=== PATIENT | female | born 1985 | race Caucasian/White ===

== ENCOUNTER 2017-03-01 10:45 | Inpatient (IN) | payer BC ==
[2017-05-10 13:52] VITALS: BMI 43.6
--- NOTE | 2017-05-16 20:41 | HP ---
HISTORY OF PRESENT ILLNESS: Yanni is a 31 year old, 0, para 0 who presented to the office with history of irregular menses. They are occurring greater than every 34 days and are heavy with clots lasting at least 7 days at a time. She has been interested in and has been to a professor of spanish. She has had identified by ultrasound what is presumably a 5 cm left ovarian dermoid. She has a longstanding history of both PCUS and infertility as noted above. The endocrinologists have opted to not remove it at this time but the patient is requesting removal as she feels it a cause for some longstanding pain that she has on the left side. We discussed options for how to remove it and have opted to proceed with mini laparotomy. PAST MEDICAL HISTORY: Significant for reported angina as well as angina. She also has history of kidney stones and hypertension. She carries a diagnosis of polycystic ovarian syndrome and has a history of an ulcer. SURGICAL HISTORY: She has undergone appendectomy, cholecystectomy, right ovarian cystectomy, and sinus surgery. She denies any anesthetic concerns. OBSTETRICAL HISTORY: 0, para 0. Currently not using contraception as she would welcome a . Again gynecological history is unremarkable with a remote history of STDs but nothing recent. Family history is noncontributory. Social history: The patient is and is a casino floor supervisor. She is a smoker but denies any other alcohol, drugs or any other social concerns. Current medications: 1. Methadone. 2. Naproxen as needed. 3. Neurontin 300 mg daily. 4. Ritalin three times daily. 5. Zantac 300 mg q.h.s. ALLERGIES: CIPRO CAUSED HIVES AND ITCHING DID REPORTEDLY MORPHINE AND PENICILLIN WELL POSSIBLY TORADOL. Review of systems is confined to history of present illness. PHYSICAL EXAMINATION: Vital signs are stable and the patient is afebrile. In general, this is a moderately obese white female in no acute distress. HEENT: demonstrates PERRLA, EOMI, her oropharynx is clear. Neck is supple. Without adenopathy. Thyroid is normal to palpation. Her heart has regular rhythm and rate without murmur. Her lungs are clear to auscultation bilaterally in all lou. Her abdomen is moderately obese, nondistended and has normal active bowel sounds, is soft, nontender, without any palpable masses. Hepatosplenomegaly without any hernias. Her extremities without cyanosis, clubbing or edema and are nontender to palpation bilaterally. Bimanual pelvic examination demonstrates a roughly four week retroverted mobile nontender normal shaped uterus with normal adnexa bilaterally although there is suggestion of left adnexal fullness. She did have mild tenderness, more on the left than the right. ASSESSMENT AND PLAN: 5 cm presumptive left ovarian dermoid, left pelvic pain: We discussed options in terms of treating it hormonally versus surgical. The patient has requested definitive therapy with removal. We will plan to proceed with exploratory laparotomy, left ovarian cystectomy, possible oophorectomy, and any indicated surgery. We discussed the typical hospital and postop courses as well as the risks and complications of the procedure at length to include bleeding, bleeding requiring transfusion, infection, and injury to local structures to specifically include the bowel, bladder and ureters. She has understood all of these risks and agrees to proceed. We are scheduled for the morning of May 17, 2017 for the procedures as outlined above. FAM
[2017-05-17] MEDS ORDERED: Pre Op ABX Message 1 EACH MISC MISCELLANE ONE (05:00)
[2017-05-17] MEDS ORDERED: ONDANSETRON 4 MG/2 ML VIAL IVP ONE (05:41)
[2017-05-17] MEDS ORDERED: DEXAMETHASONE SOD PHOSPHATE 10 MG/ML 1 ML VIAL IV ONE (05:41)
[2017-05-17 06:50] LABS: Glucose,Whole Blood 100 mg/dL (75-99)
[2017-05-17] MEDS: LACTATED RINGERS 1,000 ML IV SCH ×5 (06:51→15:52)
[2017-05-17] MEDS ORDERED: MIDAZOLAM 2 MG/2 ML VIAL IVP ONE (07:00)
[2017-05-17] MEDS ORDERED: DEXAMETHASONE SOD PHOS (MDV) 100 MG/10 ML VIAL ONE (07:35)
[2017-05-17] MEDS ORDERED: SUCCINYLCHOLINE CHLORIDE 100 MG/5 ML SYR IV ONE (07:35)
[2017-05-17] MEDS ORDERED: PROPOFOL 10 MG/ML 20 ML VIAL IV ONE (07:35)
[2017-05-17] MEDS ORDERED: fentaNYL (PF) 50 MCG/ML 2 ML AMP ONE (07:35)
[2017-05-17] MEDS ORDERED: ALBUTEROL INHALER 60 PUFF/8 GM INHALER INHALATION ONE (07:35)
[2017-05-17] MEDS ORDERED: MIDAZOLAM 2 MG/2 ML VIAL ONE (07:35)
[2017-05-17] MEDS ORDERED: GLYCOPYRROLATE 0.2 MG/ML 2 ML VIAL ONE (07:35)
[2017-05-17] MEDS ORDERED: diphenhydrAMINE 50 MG/ML 1 ML VIAL ONE (07:35)
[2017-05-17] MEDS ORDERED: HYDROmorphone (PF) 1 MG/ML ONE (07:35)
[2017-05-17] MEDS ORDERED: ROCURONIUM BROMIDE 10 MG/ML 10 ML VIAL IV ONE (07:35)
[2017-05-17] MEDS ORDERED: NEOSTIGMINE 1 MG/ML 10 ML VIAL ONE (07:35)
[2017-05-17] MEDS ORDERED: LIDOCAINE 1% INJ 10MG/ML (20 ML MDV) ONE (07:35)
[2017-05-17] MEDS ORDERED: diphenhydrAMINE 50 MG/ML 1 ML VIAL IVP PRN (07:42)
[2017-05-17] MEDS ORDERED: ONDANSETRON 4 MG/2 ML VIAL IVP PRN (07:42)
[2017-05-17] MEDS ORDERED: METOCLOPRAMIDE 5 MG/ML 2 ML VIAL IVP PRN (07:42)
[2017-05-17] MEDS ORDERED: IBUPROFEN 600 MG TAB PO PRN (07:42)
[2017-05-17] MEDS ORDERED: Acetaminophen-Codeine 300-30mg TAB PO PRN ×2 (07:42)
[2017-05-17] MEDS ORDERED: SODIUM CHLORIDE 0.9% 100 ML with CLINDAMYCIN 900 MG IV ONE ×2 (07:57)
[2017-05-17] MEDS ORDERED: CELLULOSE,OXIDIZED 1 EACH EACH MISCELLANE ONE (08:16)
[2017-05-17] MEDS ORDERED: NALOXONE 0.4 MG/ML 1 ML VIAL IV PRN (08:37)
[2017-05-17] MEDS ORDERED: LACTATED RINGERS 1,000 ML IV ONE (08:42)
--- NOTE | 2017-05-17 08:45 | P.OP ---
Date of Procedure: 05/17/17 Preoperative Diagnosis: #1. Left pelvic pain #2. 5 cm presumptive left ovarian dermoid cyst Postoperative Diagnosis: Same Procedure(s) Performed: #1. Exploratory laparotomy #2. Left ovarian cystectomy with ovarian reconstruction Implants: Surgeon: Moody Multani Coffee Attendant #1: Carolina Hernandez Estimated Blood Loss (ml): 100 IV fluids (ml): 700 Urine output (ml): 60 Pathology: other (Left ovarian cyst) Condition: stable Disposition: PACU Indications for Procedure: Operative Findings: Preoperative pelvic examination demonstrated a normal of 4 week anteverted uterus with the suggestion of left adnexal dilation. Examination is still limited secondary to the patient's habitus. Intraoperatively, the uterus was entirely normal as were the bilateral tubes. The right ovary was somewhat enlarged consistent with polycystic ovarian syndrome. The left ovary was significantly enlarged with an apparent cyst within which was removed intact and unruptured. The ovary was reconstructed part replaced within the pelvis. Description of Procedure: The patient was prepped and draped in usual fashion after general endotracheal anesthesia was administered by the anesthesiologist. Some a small Pfannenstiel incision was made and extended into the abdominal cavity with minimal difficulty. The pelvis was explored manually with the findings as noted above. The left ovary was able to be elevated into the incisional area from where an incision was made across the capsule of the ovary to enter it without entering the cyst. The capsule was then dissected bluntly off of the underlying cyst until the cyst was free. The cyst was then passed for pathological diagnoses. The ovary was reconstructed starting deep and the internal portion with running locking stitches of 2-0 Vicryl to control bleeding. Once the internal portion of the ovary had been thoroughly reconstructed and hemostasis was excellent using both the stitches and Bovie, the capsule was reapproximated with the edges being tucked in with an overlapping imbricating type of stitch to close the capsule. Any edges of capsule that were still visible were then cauterized. Hemostasis appeared to be excellent. Thorough irrigation was carried out to remove any free blood from the pelvis area The ovary was then wrapped with Interceed and replaced within the pelvis in its normal anatomic position. The remainder of the pelvis was reexplored and the findings continued to be normal. All instrumentation was then removed from the abdomen. The fascia was closed after ensuring that hemostasis was adequate on the layer of muscles. Fascia was closed with a running stitch of 0 Vicryl from margin to margin. The subcutaneous tissues were irrigated, made hemostatic with the Bovie, and reapproximated with a running stitch of 30 plain catgut. The skin was reapproximated with a running subcuticular stitch of 4-0 Vicryl followed by half-inch Steri-Strips placed with Mastisol. Estimated blood loss for the case was approximately 100 mL or less. There were no complications. All sponge, instrument, and needle counts were correct. The patient tolerated the procedure well and is to proceed to the recovery room in stable condition shortly.
[2017-05-17] MEDS: HYDROmorphone 1 MG/ML 1 ML SYRINGE IVP PRN ×2 (10:07→10:15)
[2017-05-17] MEDS: SENNOSIDES-DOCUSATE SODIUM 1 EACH TAB PO SCH ×2 (10:19→21:17)
[2017-05-17] MEDS: HYDROmorphone PCA 5 MG/25 ML SYRINGE IV PRN ×3 (11:15→22:31)
[2017-05-17] MEDS: SIMETHICONE 80 MG CHEWABLE PO PRN (22:19)
[2017-05-18] MEDS: LACTATED RINGERS 1,000 ML IV SCH ×2 (03:12→06:22)
[2017-05-18] MEDS: HYDROmorphone PCA 5 MG/25 ML SYRINGE IV PRN (03:27)
[2017-05-18 06:22] LABS: Basophils % (A) 0 %; CH 28.4; CHCM 34.2; Eosinophils % (A) 0 %; HCT 36.6 % (34.0-46.0); HDW 2.89; HGB 12.4 gm/dL (11.4-16.0); Luc # (Auto) 0.15; Luc % (Auto) 1; Lymphocytes # (A) 1.6 k/uL (1.0-4.8); Lymphocytes % (A) 12 %; MCH 28.2 pg (25.0-35.0); MCHC 33.9 g/dL (31.0-37.0); MCV 83.4 fL (80.0-100.0); Mean Platelet Volume 7.7; Monocytes # (A) 0.7 k/uL (0-1.0); Monocytes % (A) 5 %; Neutrophils # (A) 10.9 k/uL (1.3-7.7); Neutrophils % (A) 82 %; RBC 4.39 m/uL (3.80-5.40); RDW 13.8 % (11.5-15.5); WBC 13.4 k/uL (3.8-10.6); WBC (Perox) 13.08
[2017-05-18] MEDS: SENNOSIDES-DOCUSATE SODIUM 1 EACH TAB PO SCH (08:43)
[2017-05-18] MEDS: SIMETHICONE 80 MG CHEWABLE PO PRN ×2 (08:43→13:10)
[2017-05-18] MEDS ORDERED: HYDROcodone/APAP 5-325MG 1 EACH TAB PO PRN ×2 (08:56)
--- NOTE | 2017-05-18 09:03 | P.DS ---
Providers Date of admission: 05/17/17 06:01 Expected date of discharge: 05/18/17 Attending physician: Moody Multani Primary care physician: Rochelle Carlos - Discharge Diagnosis(es) (1) Ovarian cyst Current Visit: Yes Status: Acute Hospital Course: The patient is a 31-year-old 0 para 0 who carries a long-standing history of PCO OS with irregular menses. She was also diagnosed with a roughly 5 cm left ovarian dermoid. She has been attempting without success and was seen by reproductive endocrinology who opted not to have it removed. As the patient also complains of fairly significant left pelvic pain she has requested to have the dermoid cyst removed. In order to effect its removal more easily, the decision was made to proceed with minilaparotomy and excision with ovarian reconstruction. She was taken the operating room where she underwent this procedure in an uncomplicated fashion. Her postoperative course was unremarkable vital signs remaining stable and her temperature was afebrile throughout. She did have fairly significant bronchospasm at the time of induction of anesthesia which resolved following the surgery. She was tolerating regular diet by the morning of postoperative day #1 and was deemed stable for discharge as her vital signs remained stable and she was afebrile throughout on postoperative day #1. She was discharged home to follow-up in the office in 2 weeks for an incision check and 6 weeks routinely. Discharge instructions included calling for any significantly increased fever, pain, incisional complaints, GI concerns, or anything else that concerned her. She is additionally instructed to do no heavy lifting over the next the 4-6 weeks. She understood her instructions and agrees to follow up as noted above. Discharge medications included continued home medications as well as a prescription for Pe Ell 5/325 mg, 1-2 by mouth every 6 hours when necessary pain , #30 dispensed with no refills. Discharge hemoglobin and hematocrit were 12.4 and 36.6 respectively. Procedures: #1. Exploratory laparotomy #2. Left ovarian cystectomy with ovarian reconstruction Patient Condition at Discharge: Stable Plan - Discharge Summary New Discharge Prescriptions: New HYDROcodone/APAP 5-325MG [Pe Ell 5-325] 1 - 2 tab PO Q6HR PRN #30 tab PRN Reason: Pain No Action Gabapentin [Gabapentin] 600 mg PO QID Ranitidine HCl [Zantac] 75 mg PO HS PRN PRN Reason: reflux tiZANidine [Zanaflex] 4 mg PO BID PRN PRN Reason: Muscle Spasm Methadone [Dolophine] 10 mg PO TID SUMAtriptan SUCCINATE [Sumatriptan Succinate] 100 mg PO DAILY PRN PRN Reason: migraines LORazepam [Ativan] 1 mg PO DAILY PRN PRN Reason: Anxiety Discharge Medication List Gabapentin [Gabapentin] 600 mg PO QID 05/17/17 [History] LORazepam [Ativan] 1 mg PO DAILY PRN 05/17/17 [History] Methadone [Dolophine] 10 mg PO TID 05/17/17 [History] Ranitidine HCl [Zantac] 75 mg PO HS PRN 05/17/17 [History] SUMAtriptan SUCCINATE [Sumatriptan Succinate] 100 mg PO DAILY PRN 05/17/17 [ History] tiZANidine [Zanaflex] 4 mg PO BID PRN 05/17/17 [History] HYDROcodone/APAP 5-325MG [Pe Ell 5-325] 1 - 2 tab PO Q6HR PRN #30 tab 05/18/17 [ Rx] Follow up Appointment(s)/Referral(s): Moody Multani MD [STAFF PHYSICIAN] - 2 Weeks Discharge Disposition: HOME SELF-CARE
[2017-05-18 09:04] VITALS: RESP 16
[2017-05-18 12:45] VITALS: BP 123/64; PULSE 60; TEMP 97.8
== END 2017-05-18 13:29 | disposition home or self-care (01) | DRG 743 ==
LOC: 2ORWHC 05-17 06:01 → 6PED 05-17 09:14
PROVIDERS: ADMIT Obstetrics & Gynecology; ATTEND Obstetrics & Gynecology
PROC: 0UQ10ZZ Repair Left Ovary, Open Approach (ICD-10-PCS; 2017-05-17)
PROC: 0UB10ZZ Excision of Left Ovary, Open Approach (ICD-10-PCS; principal; 2017-05-17 07:30)
DX: D27.1 Benign neoplasm of left ovary (principal); E66.9 Obesity, unspecified; I10 Essential (primary) hypertension; R10.2 Pelvic and perineal pain; N92.6 Irregular menstruation, unspecified; E28.2 Polycystic ovarian syndrome; N85.4 Malposition of uterus; J98.01 Acute bronchospasm; F17.200 Nicotine dependence, unspecified, uncomplicated; Z87.442 Personal history of urinary calculi; Z79.1 Long term (current) use of non-steroidal anti-inflammatories (NSAID); Z79.899 Other long term (current) drug therapy; Z79.891 Long term (current) use of opiate analgesic; Z88.6 Allergy status to analgesic agent; Z88.1 Allergy status to other antibiotic agents; Z88.5 Allergy status to narcotic agent; Z88.0 Allergy status to penicillin; Z86.19 Personal history of other infectious and parasitic diseases; Z87.42 Personal history of other diseases of the female genital tract; Z86.79 Personal history of other diseases of the circulatory system; Z87.11 Personal history of peptic ulcer disease; Z90.49 Acquired absence of other specified parts of digestive tract
CPT/HCPCS: 81025; 85025; 86850; 86900; 86901; 88305

== ENCOUNTER → 2017-05-09 | Outpatient (CLI) | payer BC ==
[2017-05-09 11:51] LABS: Anion Gap 9 mmol/L; Blood Urea Nitrogen 11 mg/dL (7-17); Carbon Dioxide 27 mmol/L (22-30); Chloride 104 mmol/L (98-107); Glucose 95 mg/dL (74-99); Non-African American GFR(MDRD) >60 (>60 ml/min/1.73 sqM); Potassium 4.1 mmol/L (3.5-5.1); Sodium 140 mmol/L (137-145)
[2017-05-09 12:34] LABS: Basophils # (A) 0.1 k/uL (0-0.2); Basophils % (A) 1 %; CH 28.7; CHCM 34.9; Eosinophils # (A) 0.4 k/uL (0-0.7); Eosinophils % (A) 5 %; HCT 44.7 % (34.0-46.0); HDW 2.94; HGB 15.1 gm/dL (11.4-16.0); Luc # (Auto) 0.16; Luc % (Auto) 2; Lymphocytes % (A) 33 %; MCH 27.9 pg (25.0-35.0); MCHC 33.7 g/dL (31.0-37.0); MCV 82.8 fL (80.0-100.0); Mean Platelet Volume 7.6; Monocytes # (A) 0.4 k/uL (0-1.0); Monocytes % (A) 5 %; Neutrophils # (A) 4.8 k/uL (1.3-7.7); Neutrophils % (A) 55 %; RDW 13.7 % (11.5-15.5); WBC 8.9 k/uL (3.8-10.6); WBC (Perox) 8.31
== END | disposition home or self-care (01) ==
LOC: LABPAT 10:27
PROVIDERS: ATTEND Obstetrics & Gynecology
DX: Z01.812 Encounter for preprocedural laboratory examination (principal); G89.29 Other chronic pain; R10.2 Pelvic and perineal pain
CPT/HCPCS: 80051; 82565; 82947; 84520; 85025; 86850; 86900; 86901; 87086

== ENCOUNTER → 2017-12-08 | Outpatient (CLI) | payer BC ==
--- NOTE | 2017-12-08 16:07 | XR ---
EXAMINATION TYPE: XR foot complete RT DATE OF EXAM: 12/08/2017 COMPARISON: NONE HISTORY: Plantar fascial fibromatosis TECHNIQUE: Three-view right foot FINDINGS: No acute fractures or dislocations are evident. Some soft tissue prominence may be over the lateral foot. Plantar soft tissues are unremarkable. IMPRESSION: 1. Suggestion of mild bilateral foot soft tissue swelling.
== END | disposition home or self-care (01) ==
LOC: RADXRYALE 15:42
PROVIDERS: ATTEND Physician Assistant Medical
DX: M72.2 Plantar fascial fibromatosis (principal)

== ENCOUNTER → 2018-09-26 | Outpatient (CLI) | payer OTHER ==
--- NOTE | 2018-09-26 10:04 | CT ---
EXAMINATION TYPE: CT abdomen pelvis wo con DATE OF EXAM: 09/26/2018 COMPARISON: 08/04/2014 HISTORY: Bilateral flank pain with hematuria and frequent infections CT DLP: 1868.3 mGycm Examination of the solid and hollow viscera is limited given the lack of contrast. FINDINGS: LUNG BASES: No evidence for nodule. No evidence for infiltrate. LIVER/GB: Cholecystectomy clips are in place. No space-occupying hepatic lesion. PANCREAS: No pancreatic mass identified. No inflammatory process seen. SPLEEN: No evidence for splenomegaly. No intrasplenic lesions seen. ADRENALS: No adrenal nodules identified. No evidence for thickening. KIDNEYS: 6.5 mm calculus noted within the proximal left ureter just distal to the left UPJ. There the re is moderate to severe left-sided hydronephrosis. Mild left renal edema. Upper pole left renal cyst measures 4.3 cm. No additional calculi appreciated. BOWEL: Appendix has a normal appearance. No evidence of bowel obstruction. No inflammatory process. M oderate fecal stasis. Lymph nodes: No evidence for adenopathy greater than 1 cm. Abdominal aorta: Atheromatous changes seen. No evidence for aneurysm. Genital organs: No significant abnormality. Other: No significant abnormality. IMPRESSION: 1. 6.5 mm calculus noted within the proximal left ureter just distal to the left UPJ. There there is moderate to severe left-sided hydronephrosis. Mild left renal edema.
== END | disposition home or self-care (01) ==
LOC: RADCTMAIN 08:41
PROVIDERS: ATTEND Family Medicine
DX: N13.2 Hydronephrosis with renal and ureteral calculous obstruction (principal)
CPT/HCPCS: 74176

== ENCOUNTER → 2018-10-13 | Outpatient (CLI) | payer OTHER ==
[2018-10-13 11:37] LABS: Basophils % (A) 0 %; Eosinophils # (A) 0.3 k/uL (0-0.7); Eosinophils % (A) 4 %; HCT 40.7 % (34.0-46.0); HGB 13.4 gm/dL (11.4-16.0); Lymphocytes % (A) 24 %; MCH 26.8 pg (25.0-35.0); MCV 81.3 fL (80.0-100.0); Monocytes # (A) 0.5 k/uL (0-1.0); Monocytes % (A) 6 %; Neutrophils # (A) 5.2 k/uL (1.3-7.7); Neutrophils % (A) 64 %; Platelet Count 229 k/uL (150-450); RBC 5.01 m/uL (3.80-5.40); RDW 14.1 % (11.5-15.5); WBC 8.2 k/uL (3.8-10.6)
[2018-10-13 11:39] LABS: Blood Urea Nitrogen 14 mg/dL (7-17)
== END | disposition home or self-care (01) ==
LOC: LABPAT 10:45
PROVIDERS: ATTEND Urology
DX: Z01.812 Encounter for preprocedural laboratory examination (principal); N20.1 Calculus of ureter
CPT/HCPCS: 36415; 82565; 84520; 85025

== ENCOUNTER 2018-10-16 10:11 | Day surgery (SDC) | payer OTHER ==
[2018-10-13 13:32] VITALS: BMI 41.1
--- NOTE | 2018-10-15 12:26 | P.GSHP ---
History of Present Illness H&P Date: 10/15/18 33 yo female with a painful 6 mm mid left uretersl dtoe who comes for eswl. She has had 3 in the past The stone is seen just above the iliac crest left on kub and ct scn. - Constitutional Constitutional: Denies chills, Denies fever - EENT Eyes: denies blurred vision, denies pain Ears, nose, mouth and throat: Denies headache, Denies sore throat - Cardiovascular Cardiovascular: Denies chest pain, Denies shortness of breath - Respiratory Respiratory: Denies cough, Denies 7 - Gastrointestinal Gastrointestinal: Denies abdominal pain, Denies diarrhea, Denies nausea, Denies vomiting - Genitourinary (Female) Genitourinary: Reports as per HPI, Denies dysuria, Denies hematuria - Genitourinary (Male) Genitourinary: Denies dysuria, Denies hematuria - Musculoskeletal Musculoskeletal: Denies myalgias - Integumentary Integumentary: Denies pruritus, Denies rash - Neurological Neurological: Denies numbness, Denies weakness - Psychiatric Psychiatric: Denies anxiety, Denies depression - Endocrine Endocrine: Denies fatigue, Denies weight change Past Medical History Past Medical History: Asthma, Fibromyalgia, GERD/Reflux, Osteoarthritis (OA), Sleep Apnea/CPAP/BIPAP Additional Past Medical History / Comment(s): Migraines, kidney stones, back and neck pain, polycystic ovary, varicose veins, hypersomnia, no cpap used, hx ulcer, gout, History of Any Multi-Drug Resistant Organisms: None Reported Past Surgical History: Appendectomy, Cholecystectomy Additional Past Surgical History / Comment(s): cyst removed left ovarian with reconstruction, sinus surgery, rt ovarian cyst removed, oral surgery Past Anesthesia/Blood Transfusion Reactions: Previous Problems w/ Anesthesia Additional Past Anesthesia/Blood Transfusion Reaction / Comment(s): brochial spasm with surgery at [facility] 04/2018 -removal of ovarian cyst Smoking Status: Current every day smoker - Past Family History Mother Family Medical History: No Reported History Medications and Allergies Home Medications Medication Instructions Recorded Confirmed Type Methadone [Dolophine] 10 mg PO TID 05/17/17 10/13/18 History Albuterol Inhaler [Ventolin Hfa 1 - 2 puff INHALATION DIRECTED 10/13/1810/13 History Inhaler] PRN Amitriptyline HCl [Elavil] 25 mg PO HS 10/13/18 10/13/18 History Baclofen [Lioresal] 10 mg PO BID PRN 10/13/18 10/13/18 History Gabapentin 800 mg PO QID PRN 10/13/18 10/13/18 History Ranitidine HCl [Zantac] 150 mg PO BID PRN 10/13/18 10/13/18 History SUMAtriptan SUCCINATE [Imitrex] 100 mg PO DIRECTED PRN 10/13/18 10/13/18 History Sertraline [Zoloft] 100 mg PO DAILY 10/13/18 10/13/18 History Allergies Allergy/AdvReac Type Severity Reaction Status Date / Time ciprofloxacin [From Cipro] Allergy Rash/Hives Verified 10/13/18 13:17 ciprofloxacin HCl Allergy Rash/Hives Verified 10/13/18 13:17 [From Cipro] ibuprofen [From Motrin] Allergy Rash/Hives Verified 10/13/18 13:17 ketorolac tromethamine Allergy Rash/Hives Verified 10/13/18 13:17 [From Toradol] morphine Allergy Rash/Hives Verified 10/13/18 13:17 Penicillins Allergy Rash/Hives Verified 10/13/18 13:17 Surgical - Exam - General well developed, well nourished, no distress - Eyes PERRL - ENT no hearing loss - Neck trachea midline - Respiratory normal expansion, normal respiratory effort - Cardiovascular Rhythm: regular - Abdomen Abdomen: soft, tender - Integumentary no rash, no growths - Neurologic normal coordination, normal sensation - Musculoskeletal normal gait, normal posture - Psychiatric oriented to time, oriented to person, oriented to place, speech is normal, memory intact Results - Imaging CT scan - abdomen: report reviewed, image reviewed CT scan - pelvis: report reviewed, image reviewed Assessment and Plan Assessment: Impression: Left ureteral stone,6mm mid left ureter Plan: ESWL left
--- NOTE | 2018-10-16 09:30 | XR ---
EXAMINATION TYPE: XR KUB DATE OF EXAM: 10/16/2018 9:23 AM CLINICAL HISTORY: Left kidney stone, presurgical study. TECHNIQUE: Two Upright KUB images of the abdomen are obtained. COMPARISON: CT abdomen and pelvis September 26, 2018 FINDINGS: The left ureter calculus measuring 6 to 7 mm has progressed distally from level of L5 verte bra to now overlying the upper sacrum. There is additional 4 mm round density lower left sacroiliac j oint suspicious for phlebolith though I do not see corresponding large phlebolith on recent CT. Surgi shady clips are scattered throughout the pelvis. Cholecystectomy clips are noted. No right-sided nephro lithiasis is identified. Overall nonobstructive bowel gas pattern. Lung bases are clear. Slight levoconvex scoliotic curvature is seen. IMPRESSION: Slight distal progression of obstructing 6 to 7 mm left ureter calculus.
[~2018-10-16 10:11] MED LIST: LACTATED RINGERS 1,000 ML IV SCH; Pre Op ABX Message 1 EACH MISC MISCELLANE ONE
[2018-10-16 10:30] VITALS: RESP 16
[2018-10-16] MEDS ORDERED: PROPOFOL 10 MG/ML 20 ML VIAL IV ONE (10:30)
[2018-10-16] MEDS ORDERED: MIDAZOLAM 2 MG/2 ML VIAL ONE (10:30)
[2018-10-16] MEDS ORDERED: LIDOCAINE 1% 20 ML VIAL (10MG/ML) FOR IV START INTRADERMA ONE (10:30)
[2018-10-16] MEDS ORDERED: KETAMINE 10 MG/ML 20 ML VIAL ONE (10:30)
[2018-10-16] MEDS ORDERED: fentaNYL (PF) 50 MCG/ML 2 ML AMP ONE (10:30)
[2018-10-16] MEDS ORDERED: LACTATED RINGERS 1,000 ML IV ONE ×2 (10:30)
[2018-10-16 12:18] VITALS: TEMP 97.3
[2018-10-16 14:43] VITALS: BP 110/62; PULSE 71
== END 2018-10-16 14:45 | disposition home or self-care (01) ==
LOC: ORWHC2ENDO 10:11
PROVIDERS: ATTEND Urology
DX: N20.1 Calculus of ureter (principal); J45.909 Unspecified asthma, uncomplicated; K21.9 Gastro-esophageal reflux disease without esophagitis; M19.90 Unspecified osteoarthritis, unspecified site; G47.33 Obstructive sleep apnea (adult) (pediatric); M79.7 Fibromyalgia; Z88.6 Allergy status to analgesic agent; Z88.1 Allergy status to other antibiotic agents; Z88.5 Allergy status to narcotic agent; Z88.0 Allergy status to penicillin; Z88.8 Allergy status to other drugs, medicaments and biological substances; Z79.899 Other long term (current) drug therapy; Z90.49 Acquired absence of other specified parts of digestive tract
CPT/HCPCS: 81025; 74018; 50590; J2250; J3010; J2704

== ENCOUNTER → 2018-10-20 | Outpatient (CLI) | payer OTHER ==
--- NOTE | 2018-10-20 14:06 | XR ---
EXAMINATION TYPE: XR KUB DATE OF EXAM: 10/20/2018 12:36 PM CLINICAL HISTORY: Status post lithotripsy on the left. TECHNIQUE: Single supine KUB image of the abdomen is obtained. COMPARISON: 10/16/2018. FINDINGS: There is a rounded calculus near the left transverse process of L5, similar in position to the prior radiograph of 10/16/2018 likely representing a residual ureteral calculus. The previously s een second rounded density on the prior exam is no longer visualized. Surgical clips are seen in the right lower quadrant and pelvis. Moderate amount of overlying stool pa rtially obscures the renal shadows. Osseous structures are grossly intact with mild femoral acetabula r arthropathy. Previously seen levoconvex curvature of the lumbar spine is no longer present and was likely positional. IMPRESSION: An approximately 6 mm left probable ureteral stone remains at the level of the left L5 tr ansverse process. The second identified calculus versus phlebolith on the prior exam no longer visual ized.
== END | disposition home or self-care (01) ==
LOC: RADXRMAIN 12:22
PROVIDERS: ATTEND Urology
DX: N20.1 Calculus of ureter (principal)
CPT/HCPCS: 74018

== ENCOUNTER → 2018-11-27 | Outpatient (CLI) | payer OTHER ==
[2018-11-27 08:41] LABS: Basophils % (A) 0 %; Eosinophils # (A) 0.3 k/uL (0-0.7); Eosinophils % (A) 2 %; HCT 44.4 % (34.0-46.0); HGB 14.7 gm/dL (11.4-16.0); Lymphocytes # (A) 2.8 k/uL (1.0-4.8); Lymphocytes % (A) 27 %; MCH 26.9 pg (25.0-35.0); MCHC 33.1 g/dL (31.0-37.0); MCV 81.2 fL (80.0-100.0); Mean Platelet Volume 7.2; Monocytes # (A) 0.6 k/uL (0-1.0); Monocytes % (A) 6 %; Neutrophils # (A) 6.6 k/uL (1.3-7.7); Neutrophils % (A) 63 %; Platelet Count 327 k/uL (150-450); RBC 5.47 m/uL (3.80-5.40); RDW 14.8 % (11.5-15.5); WBC 10.5 k/uL (3.8-10.6)
== END | disposition home or self-care (01) ==
LOC: LABPAT 07:12
PROVIDERS: ATTEND Urology
DX: Z01.812 Encounter for preprocedural laboratory examination (principal); N20.1 Calculus of ureter
CPT/HCPCS: 36415; 85025

== ENCOUNTER → 2018-12-12 | Outpatient (CLI) | payer OTHER ==
[~2018-12-12] MED LIST changes: -LACTATED RINGERS 1,000 ML IV SCH; -Pre Op ABX Message 1 EACH MISC MISCELLANE ONE; +ceFAZolin 1,000 MG in DEXTROSE/WATER 1 50ML.BAG IVPB ONE
--- NOTE | 2018-12-12 12:23 | XR ---
EXAMINATION TYPE: XR KUB DATE OF EXAM: 12/12/2018 11:13 AM CLINICAL HISTORY: Left-sided calculus, recent lithotripsy. TECHNIQUE: Two supine KUB images of the abdomen are obtained. COMPARISON: CT abdomen and pelvis September 26, 2018. Abdominal x-ray October 20, 2018 FINDINGS: There is stable 7 mm calculus at left L4-L5 disc space level not significantly changed in s ize or appearance from prior studies. No additional renal calculi are present. Surgical clips over the right upper pelvis remain present. Overall nonobstructive bowel gas pattern i s seen. Visualized osseous structures are intact. Cholecystectomy clips are redemonstrated. IMPRESSION: Stable 6-7 mm left mid ureter calculus.
== END | disposition home or self-care (01) ==
LOC: RADXRMAIN 10:54
PROVIDERS: ATTEND Urology
DX: N20.1 Calculus of ureter (principal)
CPT/HCPCS: 74018

== ENCOUNTER 2018-12-13 05:54 | Day surgery (SDC) | payer OTHER ==
[2018-12-11 15:30] VITALS: BMI 42.0
--- NOTE | 2018-12-12 15:08 | P.GSHP ---
History of Present Illness H&P Date: 12/12/18 Chief Complaint: Left ureteral calculus Patient is a 33-year-old female with a history of urolithiasis who developed left flank pain in the fall of 2017. CT scan of the abdomen and pelvis without IV contrast on 09/26/2018 identified a 6 mm partially obstructing calculus in the proximal left ureter. The calculus was visible on a KUB. The patient was evaluated by in 09/2018 and after reviewing treatment options underwent ESWL treatment of the calculus on 10/16/[address] Jones. The patient never passed any calculus fragments in a KUB on 10/20 continued to show a 5-6 mm calculus in the mid left ureter. She continues to have intermittent left flank pain. A KUB on 12/09/2018 continues to show a 5 mm calculus at the L4-5 level. In view of failure of the ESWL treatment has been elected to treat the calculus with ureteroscopy with lithotripsy. - Constitutional Constitutional: Reports chronic pain, Denies fever - Cardiovascular Cardiovascular: Denies chest pain, Denies shortness of breath - Respiratory Respiratory: Denies cough - Gastrointestinal Gastrointestinal: Reports abdominal pain (Left flank) - Genitourinary (Female) Genitourinary: Denies dysuria, Denies hematuria Past Medical History Past Medical History: Asthma, Fibromyalgia, GERD/Reflux, Osteoarthritis (OA), Skin Disorder, Sleep Apnea/CPAP/BIPAP Additional Past Medical History / Comment(s): Migraines, kidney stones, back and neck pain, [facility] CTS, polycystic ovary, varicose veins, hypersomnia, no cpap used, hx ulcer, gout. LT KNEE PROB R/T OLD INJ. DERMATITIS HANDS. History of Any Multi-Drug Resistant Organisms: None Reported Past Surgical History: Appendectomy, Cholecystectomy Additional Past Surgical History / Comment(s): Cyst removed left ovarian with reconstruction, Sinus surgery, Rt ovarian cyst removed, oral surgery. ESWL - unsuccessful treatment left ureteral calculus 10/16/2018. Past Anesthesia/Blood Transfusion Reactions: Previous Problems w/ Anesthesia Additional Past Anesthesia/Blood Transfusion Reaction / Comment(s): brochial spasm with surgery at [facility] 04/2018 -removal of ovarian cyst Smoking Status: Current every day smoker - Past Family History Mother Family Medical History: Cancer Medications and Allergies Home Medications Medication Instructions Recorded Confirmed Type Albuterol Inhaler [Ventolin Hfa 1 - 2 puff INHALATION DIRECTED 10/13/1812/11 History Inhaler] PRN Amitriptyline HCl [Elavil] 25 mg PO HS 10/13/18 12/11/18 History Baclofen [Lioresal] 10 mg PO BID PRN 10/13/18 12/11/18 History Gabapentin 800 mg PO QID PRN 10/13/18 12/11/18 History Ranitidine HCl [Zantac] 150 mg PO BID PRN 10/13/18 12/11/18 History SUMAtriptan SUCCINATE [Imitrex] 100 mg PO DIRECTED PRN 10/13/18 12/11/18 History Sertraline [Zoloft] 100 mg PO DAILY 10/13/18 12/11/18 History Naproxen Sodium [Aleve] 220 - 440 mg PO BID PRN 12/11/18 12/11/18 History Tamsulosin HCl [Flomax] 0.4 mg PO HS PRN 12/11/18 12/11/18 History traMADol HCL [Ultram] 50 - 100 mg PO Q6HR PRN 12/11/18 12/11/18 History Allergies Allergy/AdvReac Type Severity Reaction Status Date / Time ciprofloxacin [From Cipro] Allergy Rash/Hives Verified 12/11/18 15:04 ciprofloxacin HCl Allergy Rash/Hives Verified 12/11/18 15:04 [From Cipro] ibuprofen [From Motrin] Allergy Rash/Hives Verified 12/11/18 15:04 ketorolac tromethamine Allergy Rash/Hives Verified 12/11/18 15:04 [From Toradol] morphine Allergy Rash/Hives Verified 12/11/18 15:04 Penicillins Allergy Rash/Hives Verified 12/11/18 15:04 Surgical - Exam - General well developed, well nourished, no distress, obese - ENT no hearing loss - Neck no masses, no lymphadectomy - Respiratory normal respiratory effort - Abdomen Abdomen: soft, non tender, no organomegaly Assessment and Plan (1) Left ureteral calculus Narrative/Plan: The patient will undergo cystoscopy with left ureteroscopy and lithotripsy performed under general anesthesia. She is aware of the operative risks which include anesthesia, hematuria, flank pain, ureteral injury, inability to remove the calculus and the possible need for double-J catheter postoperatively. Status: Acute Code(s): N20.1 - CALCULUS OF URETER SNOMED Code(s): 47228697
[2018-12-13] MEDS ORDERED: LIDOCAINE 1% 20 ML VIAL (10MG/ML) FOR IV START INTRADERMA PRN (06:15)
[2018-12-13] MEDS ORDERED: DEXAMETHASONE SOD PHOSPHATE 10 MG/ML 1 ML VIAL IV ONE (06:15)
[2018-12-13] MEDS ORDERED: HYDROmorphone 0.5 MG/0.5 ML SYRINGE IVP PRN (06:15)
[2018-12-13] MEDS ORDERED: LACTATED RINGERS 1,000 ML IV SCH (06:15)
[2018-12-13] MEDS ORDERED: SCOPOLAMINE 1.5MG/72HR PATCH TRANSDERM ONE (06:15)
[2018-12-13] MEDS ORDERED: ONDANSETRON 4 MG/2 ML VIAL IVP ONE (06:15)
[2018-12-13] MEDS ORDERED: MIDAZOLAM (PF) 2 MG/2 ML VIAL IV PRN (06:15)
[2018-12-13] MEDS ORDERED: fentaNYL (PF) 50 MCG/ML 2 ML AMP ONE (07:26)
[2018-12-13] MEDS ORDERED: LIDOCAINE 1% INJ 10MG/ML (20 ML MDV) ONE (07:26)
[2018-12-13] MEDS ORDERED: SUCCINYLCHOLINE CHLORIDE 100 MG/5 ML SYR IV ONE (07:26)
[2018-12-13] MEDS ORDERED: ceFAZolin 1,000 MG VIAL ONE (07:26)
[2018-12-13] MEDS ORDERED: PROPOFOL 10 MG/ML 20 ML VIAL IV ONE (07:26)
[2018-12-13] MEDS ORDERED: MIDAZOLAM 2 MG/2 ML VIAL ONE (07:26)
[2018-12-13] MEDS ORDERED: IOPAMIDOL-370 50ML BTL IRRIGATION ONE (08:00)
--- NOTE | 2018-12-13 08:08 | XR ---
EXAMINATION TYPE: XR KUB DATE OF EXAM: 12/13/2018 CLINICAL DATA: 33 year-old female left ureteral calculus, [facility] COMPARISON: 12/12/2018 FINDINGS: Supine imaging limited for assessment of free intraperitoneal air. Nonobstructive bowel gas pattern. Moderate stool in the right side of the colon. Surgical clips in the right mid to lower abdomen and pelvis. Redemonstrated 7 to 8 mm calculus along the expected course of the mid left ureter. IMPRESSION: Stable 7 to 8 mm calculus likely along the mid left ureter.
[2018-12-13 08:23] VITALS: TEMP 97.6
--- NOTE | 2018-12-13 08:25 | P.OP ---
Date of Procedure: 12/13/18 Preoperative Diagnosis: Left ureteral calculus Postoperative Diagnosis: Normal examination of left ureter Procedure(s) Performed: Cystoscopy with left retrograde ureterogram Anesthesia: GETA Surgeon: Edu Garza Estimated Blood Loss (ml): 0 Pathology: none sent Condition: stable Disposition: PACU Indications for Procedure: The patient is a 33-year-old female with a history of urolithiasis who underwent unsuccessful ESWL treatment of a 5-6 mm mid left ureteral calculus in the fall of 2017. The patient continues to have intermittent left flank pain and a KUB continues to show what appears to be a 5-6 mm calculus in region of the left ureter at the L5 level. Cystoscopy with left ureteroscopy with lithotripsy is planned Description of Procedure: The patient was taken the operating suite where adequate general anesthesia via orotracheal intubation was instituted. The patient was placed in the dorsal lithotomy position with her legs suspended from padded Gaston stirrups. Pneumatic compression stockings were applied to the lower legs. The external until you was unremarkable. The genitalia was prepped with Betadine soap painted with Betadine solution and draped in a sterile fashion. The 17-Guamanian cystoscope sheath with 30 lens was passed through the urethra and into the bladder. Both ureteral orifices were of normal location and configuration. The bladder was examined and was free of tumor foreign body and diverticulum. A 0.035 straight Glidewire was advanced through the left ureteral orifice and under fluoroscopic guidance up to the proximal ureter. The Glidewire appear to course medial to the density at the L5 level. The Glidewire was removed. A left retrograde ureterogram was performed using an 8-Guamanian cone-tipped catheter. The distal mid and proximal ureter appeared of normal caliber and the ureter was clearly at least 1 cm medial to the calcific density which had been presumed to be a ureteral calculus. The bladder was reexamined and there did not appear to be 2 left ureteral orifices. The bladder was drained and the procedure was terminated. The patient was returned to the recovery room awake extubated and in satisfactory condition. Cause of the patient's intermittent left flank pain is not clear. Due to the uncertainty in regard to whether or not the calcific density is in an ectopic ureter a computed tomography scan of the abdomen and pelvis with IV contrast will be obtained.
--- NOTE | 2018-12-13 08:29 | FL ---
EXAMINATION TYPE: FL cystogram DATE OF EXAM: 12/13/2018 COMPARISON: NONE HISTORY: Cysto left retrograde TECHNIQUE: Fluoroscopy. Dr. Garza, VLADIMIR time 10 sec. 4 OR paper films scanned. Retrograde cysto left side.
[2018-12-13 09:16] VITALS: RESP 18
[2018-12-13 10:10] VITALS: BP 144/80; PULSE 80
== END 2018-12-13 10:12 | disposition home or self-care (01) ==
LOC: OR 05:54
PROVIDERS: ATTEND Urology
DX: N20.1 Calculus of ureter (principal); G89.29 Other chronic pain; J45.909 Unspecified asthma, uncomplicated; M79.7 Fibromyalgia; K21.9 Gastro-esophageal reflux disease without esophagitis; M19.90 Unspecified osteoarthritis, unspecified site; G47.30 Sleep apnea, unspecified; G43.909 Migraine, unspecified, not intractable, without status migrainosus; E28.2 Polycystic ovarian syndrome; M10.9 Gout, unspecified; L30.9 Dermatitis, unspecified; F17.210 Nicotine dependence, cigarettes, uncomplicated; Z87.442 Personal history of urinary calculi; Z99.89 Dependence on other enabling machines and devices; Z79.899 Other long term (current) drug therapy; Z88.6 Allergy status to analgesic agent; Z88.1 Allergy status to other antibiotic agents; Z88.5 Allergy status to narcotic agent; Z88.0 Allergy status to penicillin; Z90.49 Acquired absence of other specified parts of digestive tract
CPT/HCPCS: 81025; 74430; 74018; 52005; C1758; C1769; J2250 ×2; J1100; J2405; J0690; J2001; J3010; J0330; J2704; Q9967

== ENCOUNTER → 2019-01-12 | Outpatient (CLI) | payer OTHER ==
[2019-01-12 16:11] LABS: Blood Urea Nitrogen 11 mg/dL (7-17)
--- NOTE | 2019-01-13 11:52 | CT ---
EXAMINATION TYPE: CT abdomen pelvis w con DATE OF EXAM: 01/12/2019 COMPARISON: 09/26/2018 HISTORY: left flank pain, hematuria. hx of stones CT DLP: 2210.1 mGycm CONTRAST: CT scan of the abdomen and pelvis is performed without Oral Contrast and with IV Contrast, patient in jected with 100 mL of Isovue 300. FINDINGS: LUNG BASES-: No visible nodule. No infiltrate. LIVER/GB: Changes of prior cholecystectomy. Mild fatty hepatic infiltration. No space occupying he patic lesion. Biliary tree is of normal caliber. PANCREAS: No inflammation. No distinct mass. SPLEEN: No splenic enlargement. No lesion seen. ADRENALS: No nodule. No thickening. KIDNEYS/BLADDER: 8.5 mm calculus within the left mid ureter resulting in moderate left-sided hydroure teronephrosis. No additional calculi identified. No right-sided hydronephrosis. Simple cyst upper heath e left kidney measuring 4.6 cm. Urinary bladder is unremarkable. BOWEL: Appendectomy clips are in place. Normal bowel caliber. No inflammation. GENITAL ORGANS: No gross abnormality. LYMPH NODES: No greater than 1cm abdominal or pelvic lymph nodes are appreciated. AORTA: No significant abnormality. OSSEOUS STRUCTURES: No significant abnormality is seen. OTHER: No significant additional abnormality is seen. IMPRESSION: 1. 8.5 mm calculus within the left mid ureter resulting in moderate left-sided hydroureteronephrosis .
== END | disposition home or self-care (01) ==
LOC: RADCTMAIN 15:17
PROVIDERS: ATTEND Urology
DX: N13.2 Hydronephrosis with renal and ureteral calculous obstruction (principal); Z88.0 Allergy status to penicillin; Z88.6 Allergy status to analgesic agent; Z88.5 Allergy status to narcotic agent; Z88.1 Allergy status to other antibiotic agents
CPT/HCPCS: 82565; 84520; 74177; 36415; Q9967

== ENCOUNTER 2019-01-28 02:42 | Inpatient (IN) | payer OTHER ==
[2019-01-28] MEDS ORDERED: HYDROmorphone 1 MG/ML 1 ML SYRINGE IVP STA (02:59)
[2019-01-28] MEDS ORDERED: SODIUM CHLORIDE 0.9% 1,000 ML IV STA (02:59)
[2019-01-28] MEDS ORDERED: ONDANSETRON 4 MG/2 ML VIAL IVP STA (02:59)
--- NOTE | 2019-01-28 03:04 | ED ---
Abdominal Pain HPI - General Source: patient Mode of arrival: ambulatory Limitations: no limitations <Ella Bravo - Last Filed: 01/28/19 03:55> <Julian Juares - Last Filed: 01/31/19 08:08> - General Chief Complaint: Abdominal Pain Stated Complaint: back pain Time Seen by Provider: 01/28/19 02:51 - History of Present Illness Initial Comments: 33-year-old female patient presents to the emergency department today for evaluation of left flank pain. Patient states pain started suddenly approximately 2 hours ago. Patient does have a history of kidney stones did have a computed tomography scan on January 16 showing an 8.5 mm stone in the left mid ureter. Patient states she is nauseated with this. Denies any fevers or chills. Denies any hematuria, dysuria, urinary frequency, urinary urgency. Denies any urinary retention. Denies any constipation or diarrhea. Patient states pain is similar to when she started kidney stones. Patient denies any recent rash, shortness breath, chest pain, numbness, tingling, dizziness, weakness, headache, visual changes, or any other complaints. (Ella Bravo) - Related Data Home Medications Medication Instructions Recorded Confirmed Albuterol Inhaler [Ventolin Hfa 1 - 2 puff INHALATION DIRECTED 10/13/18 01/28/19 Inhaler] PRN Amitriptyline HCl [Elavil] 25 mg PO HS 10/13/18 01/28/19 Baclofen [Lioresal] 10 mg PO BID PRN 10/13/18 01/28/19 Gabapentin 800 mg PO QID PRN 10/13/18 01/28/19 Ranitidine HCl [Zantac] 150 mg PO BID PRN 10/13/18 01/28/19 SUMAtriptan SUCCINATE [Imitrex] 100 mg PO DIRECTED PRN 10/13/18 01/28/19 Sertraline [Zoloft] 100 mg PO DAILY 10/13/18 01/28/19 Naproxen Sodium [Aleve] 220 - 440 mg PO BID PRN 12/11/18 01/28/19 Tamsulosin HCl [Flomax] 0.4 mg PO HS PRN 12/11/18 01/28/19 traMADol HCL [Ultram] 50 - 100 mg PO Q6HR PRN 12/11/18 01/28/19 Labetalol HCl 200 mg PO DAILY 01/28/19 01/28/19 Phenazopyridine HCl [Pyridium] 200 mg PO TID PRN 01/28/19 01/28/19 Previous Rx's Medication Instructions Recorded Sulfamethox-Tmp 800-160Mg [Bactrim 1 tab PO Q12HR #30 tab 01/29/19 DS 800-160 mg] Allergies Allergy/AdvReac Type Severity Reaction Status Date / Time ciprofloxacin [From Cipro] Allergy Rash/Hives Verified 01/28/19 02:50 ciprofloxacin HCl Allergy Rash/Hives Verified 01/28/19 02:50 [From Cipro] ibuprofen [From Motrin] Allergy Rash/Hives Verified 01/28/19 02:50 ketorolac tromethamine Allergy Rash/Hives Verified 01/28/19 02:50 [From Toradol] morphine Allergy Rash/Hives Verified 01/28/19 02:50 Penicillins Allergy Rash/Hives Verified 01/28/19 02:50 Review of Systems ROS Other: All systems not noted in ROS Statement are negative. <Ella Bravo - Last Filed: 01/28/19 03:55> ROS Other: All systems not noted in ROS Statement are negative. <Julian Juares - Last Filed: 01/31/19 08:08> ROS Statement: Those systems with pertinent positive or pertinent negative responses have been documented in the HPI. Past Medical History Past Medical History: Asthma, Fibromyalgia, GERD/Reflux, Osteoarthritis (OA), Skin Disorder, Sleep Apnea/CPAP/BIPAP Additional Past Medical History / Comment(s): Migraines, kidney stones, back and neck pain, HAROON CTS, polycystic ovary, varicose veins, hypersomnia, no cpap used, hx ulcer, gout. LT KNEE PROB R/T OLD INJ. DERMATITIS HANDS. History of Any Multi-Drug Resistant Organisms: None Reported Past Surgical History: Appendectomy, Cholecystectomy Additional Past Surgical History / Comment(s): Cyst removed left ovarian with reconstruction, Sinus surgery, Rt ovarian cyst removed, oral surgery. ESWL - unsuccessful treatment left ureteral calculus 10/16/2018. Past Anesthesia/Blood Transfusion Reactions: Previous Problems w/ Anesthesia Additional Past Anesthesia/Blood Transfusion Reaction / Comment(s): brochial spasm with surgery at [facility] 04/2018 -removal of ovarian cyst Past Psychological History: Anxiety, Depression Smoking Status: Current every day smoker Past Alcohol Use History: None Reported Past Drug Use History: None Reported - Past Family History Mother Family Medical History: Cancer <Ella Bravo - Last Filed: 01/28/19 03:55> General Exam Limitations: no limitations General appearance: alert, in no apparent distress, other (Physical well- developed, well-nourished adult female patient in no acute distress. Vital signs upon presentation are temperature 98.3F, pulse 106, respirations 20, blood pressure 160/98, pulse ox 97% on room air.) Eye exam: Present: normal appearance, PERRL, EOMI. Absent: scleral icterus, conjunctival injection, periorbital swelling ENT exam: Present: normal exam, normal oropharynx, mucous membranes moist Respiratory exam: Present: normal lung sounds bilaterally. Absent: respiratory distress, wheezes, rales, rhonchi, stridor Cardiovascular Exam: Present: regular rate, normal rhythm, normal heart sounds. Absent: systolic murmur, diastolic murmur, rubs, gallop, clicks GI/Abdominal exam: Present: soft, normal bowel sounds. Absent: distended, tenderness, guarding, rebound, rigid Back exam: Present: normal inspection, CVA tenderness (L). Absent: CVA tenderness (R) Neurological exam: Present: alert, oriented X3, CN II-XII intact Psychiatric exam: Present: normal affect, normal mood Skin exam: Present: warm, dry, intact, normal color. Absent: rash <Ella Bravo - Last Filed: 01/28/19 03:55> Course Vital Signs 01/28/19 01/28/19 01/28/19 02:49 04:15 04:52 Temperature 98.3 F 98.3 F Pulse Rate 106 H 94 Respiratory 20 20 Rate Blood Pressure 160/98 154/82 O2 Sat by Pulse 97 98 Oximetry Medical Decision Making - Lab Data Result diagrams: 01/28/19 03:04 01/28/19 03:04 - Radiology Data Radiology results: pending <Ella Bravo - Last Filed: 01/28/19 03:55> - Lab Data Result diagrams: 01/28/19 03:04 01/28/19 03:04 <Julian Juares - Last Filed: 01/31/19 08:08> - Medical Decision Making 33-year-old female patient presents to the emergency department today for evaluation of left flank pain. Patient does have history of kidney stones and did have computed tomography scan on 319 showing an 8.5 mm stone to the left ureter. Patient's current symptoms are present for the last 2 hours. Throughout visit patient has been in severe pain and has been retching despite administration of multiple medications. Labs reviewed and did reveal elevated white blood cell count at 18.8 with a neutrophil count of 15.2. Urinalysis shows large amount of leukocyte esterase, 85 white blood cells, and rare mucous. Patient is not . I attending Dr. Juares did speak to the urologist on- call who will accept patient to their service. Pain management will be provided. (Ella Bravo) I saw this patient in conjunction with the physician emergency room physician assistant. I performed independent history and physical exam. Agree with case management. (Julian Juares) - Lab Data Lab Results 01/28/19 01/28/19 01/28/19 Range/Units 03:04 03:04 03:04 WBC 18.8 H (3.8-10.6) k/uL RBC 5.52 H (3.80-5.40) m/uL Hgb 14.5 (11.4-16.0) gm/dL Hct 43.3 (34.0-46.0) % MCV 78.5 L (80.0-100.0) fL MCH 26.3 (25.0-35.0) pg MCHC 33.5 (31.0-37.0) g/dL RDW 15.6 H (11.5-15.5) % Plt Count 274 (150-450) k/uL Neutrophils % 81 % Lymphocytes % 12 % Monocytes % 4 % Eosinophils % 2 % Basophils % 0 % Neutrophils # 15.2 H (1.3-7.7) k/uL Lymphocytes # 2.3 (1.0-4.8) k/uL Monocytes # 0.8 (0-1.0) k/uL Eosinophils # 0.4 (0-0.7) k/uL Basophils # 0.1 (0-0.2) k/uL Microcytosis Slight Sodium 139 (137-145) mmol/L Potassium 3.6 (3.5-5.1) mmol/L Chloride 107 (98-107) mmol/L Carbon Dioxide 22 (22-30) mmol/L Anion Gap 10 mmol/L BUN 10 (7-17) mg/dL Creatinine 0.74 (0.52-1.04) mg/dL Est GFR (CKD-EPI)AfAm >90 (>60 ml/min/1.73 sqM) Est GFR (CKD-EPI)NonAf >90 (>60 ml/min/1.73 sqM) Glucose 151 H (74-99) mg/dL Calcium 9.4 (8.4-10.2) mg/dL Total Bilirubin 0.7 (0.2-1.3) mg/dL AST 14 (14-36) U/L ALT 23 (9-52) U/L Alkaline Phosphatase 67 (38-126) U/L Total Protein 7.2 (6.3-8.2) g/dL Albumin 4.2 (3.5-5.0) g/dL Amylase 37 (30-110) U/L Lipase 45 (23-300) U/L Urine Color Urine Appearance (Clear) Urine pH (5.0-8.0) Ur Specific [place] (1.001-1.035) Urine Protein (Negative) Urine Glucose (UA) (Negative) Urine Ketones (Negative) Urine Blood (Negative) Urine Nitrite (Negative) Urine Bilirubin (Negative) Urine Urobilinogen (<2.0) mg/dL Ur Leukocyte Esterase (Negative) Urine RBC (0-5) /hpf Urine WBC (0-5) /hpf Ur Squamous Epith Cells (0-4) /hpf Urine Mucus (None) /hpf Urine HCG, Qual Not Detected (Not Detectd) 01/28/19 Range/Units 03:04 WBC (3.8-10.6) k/uL RBC (3.80-5.40) m/uL Hgb (11.4-16.0) gm/dL Hct (34.0-46.0) % MCV (80.0-100.0) fL MCH (25.0-35.0) pg MCHC (31.0-37.0) g/dL RDW (11.5-15.5) % Plt Count (150-450) k/uL Neutrophils % % Lymphocytes % % Monocytes % % Eosinophils % % Basophils % % Neutrophils # (1.3-7.7) k/uL Lymphocytes # (1.0-4.8) k/uL Monocytes # (0-1.0) k/uL Eosinophils # (0-0.7) k/uL Basophils # (0-0.2) k/uL Microcytosis Sodium (137-145) mmol/L Potassium (3.5-5.1) mmol/L Chloride (98-107) mmol/L Carbon Dioxide (22-30) mmol/L Anion Gap mmol/L BUN (7-17) mg/dL Creatinine (0.52-1.04) mg/dL Est GFR (CKD-EPI)AfAm (>60 ml/min/1.73 sqM) Est GFR (CKD-EPI)NonAf (>60 ml/min/1.73 sqM) Glucose (74-99) mg/dL Calcium (8.4-10.2) mg/dL Total Bilirubin (0.2-1.3) mg/dL AST (14-36) U/L ALT (9-52) U/L Alkaline Phosphatase (38-126) U/L Total Protein (6.3-8.2) g/dL Albumin (3.5-5.0) g/dL Amylase (30-110) U/L Lipase (23-300) U/L Urine Color Light Yellow Urine Appearance Clear (Clear) Urine pH 7.0 (5.0-8.0) Ur Specific [place] 1.011 (1.001-1.035) Urine Protein Negative (Negative) Urine Glucose (UA) Negative (Negative) Urine Ketones Negative (Negative) Urine Blood Negative (Negative) Urine Nitrite Negative (Negative) Urine Bilirubin Negative (Negative) Urine Urobilinogen <2.0 (<2.0) mg/dL Ur Leukocyte Esterase Large H (Negative) Urine RBC 4 (0-5) /hpf Urine WBC 85 H (0-5) /hpf Ur Squamous Epith Cells 1 (0-4) /hpf Urine Mucus Rare H (None) /hpf Urine HCG, Qual (Not Detectd) Disposition Decision to Admit Reason: Admit from EC Decision Date: 01/28/19 Decision Time: 03:56 <Ella Bravo - Last Filed: 01/28/19 03:55> <Julian Juares - Last Filed: 01/31/19 08:08> Clinical Impression: Left ureteral stone, Urinary tract infection Disposition: ADMITTED IP TO THIS HOSP Condition: Good
[2019-01-28] MEDS ORDERED: METOCLOPRAMIDE 5 MG/ML 2 ML VIAL IVP STA (03:24)
[2019-01-28] MEDS ORDERED: diphenhydrAMINE 50 MG/ML 1 ML VIAL IVP STA (03:25)
[2019-01-28 03:27] LABS: Basophils # (A) 0.1 k/uL (0-0.2); Basophils % (A) 0 %; Eosinophils # (A) 0.4 k/uL (0-0.7); Eosinophils % (A) 2 %; HCT 43.3 % (34.0-46.0); HGB 14.5 gm/dL (11.4-16.0); Lymphocytes # (A) 2.3 k/uL (1.0-4.8); Lymphocytes % (A) 12 %; MCH 26.3 pg (25.0-35.0); MCHC 33.5 g/dL (31.0-37.0); MCV 78.5 fL (80.0-100.0); Microcytosis Slight; Monocytes # (A) 0.8 k/uL (0-1.0); Monocytes % (A) 4 %; Neutrophils # (A) 15.2 k/uL (1.3-7.7); Neutrophils % (A) 81 %; Platelet Count 274 k/uL (150-450); RBC 5.52 m/uL (3.80-5.40); RDW 15.6 % (11.5-15.5); WBC 18.8 k/uL (3.8-10.6)
[2019-01-28 03:28] LABS: Appearance,Urine Clear (Clear); Bilirubin,Urine Negative (Negative); Blood,Urine Negative (Negative); Color,Urine Light Yellow; Glucose,Urine (UA) Negative (Negative); Ketones,Urine Negative (Negative); Leukocyte Esterase,Urine Large (Negative); Mucus,Urine Rare /hpf; Nitrite,Urine Negative (Negative); Protein,Urine Negative (Negative); RBC,Urine 4 /hpf (0-5); Specific Gravity,Urine 1.011 (1.001-1.035); Squamous Epithelial Cell,Urine 1 /hpf (0-4); Urobilinogen,Urine <2.0 mg/dL (<2.0); WBC,Urine 85 /hpf (0-5)
[2019-01-28 03:38] LABS: ALT 23 U/L (9-52); AST 14 U/L (14-36); Albumin 4.2 g/dL (3.5-5.0); Alkaline Phosphatase 67 U/L (38-126); Amylase 37 U/L (30-110); Anion Gap 10 mmol/L; Blood Urea Nitrogen 10 mg/dL (7-17); Calcium 9.4 mg/dL (8.4-10.2); Carbon Dioxide 22 mmol/L (22-30); Chloride 107 mmol/L (98-107); Glucose 151 mg/dL (74-99); Lipase 45 U/L (23-300); Potassium 3.6 mmol/L (3.5-5.1); Sodium 139 mmol/L (137-145); Total Bilirubin 0.7 mg/dL (0.2-1.3); Total Protein 7.2 g/dL (6.3-8.2)
[2019-01-28] MEDS ORDERED: PROMETHAZINE INJ 25 MG in SODIUM CHLORIDE 0.9% 50 ML IVPB STA (03:53)
[2019-01-28] MEDS ORDERED: HYDROmorphone 1 MG/ML 1 ML SYRINGE IVP PRN (03:54)
[2019-01-28] MEDS ORDERED: NALOXONE 0.4 MG/ML 1 ML VIAL IV PRN (03:54)
[2019-01-28] MEDS ORDERED: ONDANSETRON 4 MG/2 ML VIAL IVP PRN (03:54)
--- NOTE | 2019-01-28 04:37 | XR ---
EXAM: XR Abdomen, 2 Views CLINICAL HISTORY: Pain TECHNIQUE: Frontal view of the abdomen/pelvis with upright view of the abdomen. COMPARISON: Abdominal x-ray dated 12/13/2018 FINDINGS: Intraperitoneal space: See below. Gastrointestinal tract: Nonobstructive bowel gas pattern. Organs: Evidence of prior cholecystectomy. Bones/joints: Unremarkable. Soft tissues: Surgical clips are seen within the pelvis. Vasculature: Probable phlebolith within the pelvis. IMPRESSION: No acute findings.
[2019-01-28] MEDS: SODIUM CHLORIDE 0.9% 1,000 ML IV SCH ×2 (05:04→17:46)
[2019-01-28 05:14] VITALS: BMI 42.7
[2019-01-28] MEDS: HYDROmorphone 1 MG/ML 1 ML SYRINGE IVP PRN ×4 (05:43→20:46)
[2019-01-28] MEDS ORDERED: TAMSULOSIN 0.4 MG CAP.ER.24H PO SCH (08:30)
--- NOTE | 2019-01-28 08:52 | P.GSHP ---
History of Present Illness H&P Date: 01/28/19 33 yo fema;e with a left ureteral stone SHe failed eswl. 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 He only sa one ureteral orifice She returns to the er because of intractable pain She is admitted for iv pain meds and antibiotics - Constitutional Constitutional: Denies chills, Denies fever - EENT Eyes: denies blurred vision, denies pain Ears, nose, mouth and throat: Denies headache, Denies sore throat - Cardiovascular Cardiovascular: Denies chest pain, Denies shortness of breath - Respiratory Respiratory: Denies cough, Denies 7 - Gastrointestinal Gastrointestinal: Denies abdominal pain, Denies diarrhea, Denies nausea, Denies vomiting - Genitourinary (Female) Genitourinary: Denies dysuria, Denies hematuria - Genitourinary (Male) Genitourinary: Denies dysuria, Denies hematuria - Musculoskeletal Musculoskeletal: Denies myalgias - Integumentary Integumentary: Denies pruritus, Denies rash - Neurological Neurological: Denies numbness, Denies weakness - Psychiatric Psychiatric: Denies anxiety, Denies depression - Endocrine Endocrine: Denies fatigue, Denies weight change Past Medical History Past Medical History: Asthma, Fibromyalgia, GERD/Reflux, Osteoarthritis (OA), Skin Disorder, Sleep Apnea/CPAP/BIPAP Additional Past Medical History / Comment(s): Migraines, kidney stones, back and neck pain, HAROON CTS, polycystic ovary, varicose veins, hypersomnia, no cpap used, hx ulcer, gout. LT KNEE PROB R/T OLD INJ. DERMATITIS HANDS. History of Any Multi-Drug Resistant Organisms: None Reported Past Surgical History: Appendectomy, Cholecystectomy Additional Past Surgical History / Comment(s): Cyst removed left ovarian with reconstruction, Sinus surgery, Rt ovarian cyst removed, oral surgery. ESWL - unsuccessful treatment left ureteral calculus 10/16/2018. Past Anesthesia/Blood Transfusion Reactions: Previous Problems w/ Anesthesia Additional Past Anesthesia/Blood Transfusion Reaction / Comment(s): brochial spasm with surgery at [facility] 04/2018 -removal of ovarian cyst Past Psychological History: Anxiety, Depression Additional Psychological History / Comment(s): RECENT ANXIETY R/T MOTHER'S CA DIAGNOSIS. VERY ANXIOUS PRIOR TO SURGERY. Smoking Status: Current every day smoker Past Alcohol Use History: None Reported Additional Past Alcohol Use History / Comment(s): has smoked since age 26, smokes 1/2 PPD, Past Drug Use History: None Reported - Past Family History Mother Family Medical History: Cancer Medications and Allergies Home Medications Medication Instructions Recorded Confirmed Type Albuterol Inhaler [Ventolin Hfa 1 - 2 puff INHALATION DIRECTED 10/13/18 12/13/18 History Inhaler] PRN Amitriptyline HCl [Elavil] 25 mg PO HS 10/13/18 12/13/18 History Baclofen [Lioresal] 10 mg PO BID PRN 10/13/18 12/13/18 History Gabapentin 800 mg PO QID PRN 10/13/18 12/13/18 History Ranitidine HCl [Zantac] 150 mg PO BID PRN 10/13/18 12/13/18 History SUMAtriptan SUCCINATE [Imitrex] 100 mg PO DIRECTED PRN 10/13/18 12/13/18 History Sertraline [Zoloft] 100 mg PO DAILY 10/13/18 12/13/18 History Naproxen Sodium [Aleve] 220 - 440 mg PO BID PRN 12/11/18 12/11/18 History Tamsulosin HCl [Flomax] 0.4 mg PO HS PRN 12/11/18 12/13/18 History traMADol HCL [Ultram] 50 - 100 mg PO Q6HR PRN 12/11/18 12/13/18 History Allergies Allergy/AdvReac Type Severity Reaction Status Date / Time ciprofloxacin [From Cipro] Allergy Rash/Hives Verified 01/28/19 02:50 ciprofloxacin HCl Allergy Rash/Hives Verified 01/28/19 02:50 [From Cipro] ibuprofen [From Motrin] Allergy Rash/Hives Verified 01/28/19 02:50 ketorolac tromethamine Allergy Rash/Hives Verified 01/28/19 02:50 [From Toradol] morphine Allergy Rash/Hives Verified 01/28/19 02:50 Penicillins Allergy Rash/Hives Verified 01/28/19 02:50 Surgical - Exam Vital Signs Temp Pulse Resp BP Pulse Ox 98.3 F 106 H 20 160/98 97 01/28/19 02:49 01/28/19 02:49 01/28/19 02:49 01/28/19 02:49 01/28/19 02:49 - General well developed, well nourished, moderate distress - Eyes PERRL - ENT no hearing loss - Neck no masses - Respiratory normal expansion, normal respiratory effort - Cardiovascular tachycardic - Abdomen Abdomen: soft, tender - Integumentary no rash, no growths - Neurologic normal coordination, normal sensation - Musculoskeletal normal posture - Psychiatric oriented to time, oriented to person, oriented to place, speech is normal, memory intact Results - Labs 01/28/19 03:04 01/28/19 03:04 Abnormal Lab Results - Last 24 Hours (Table) 01/28/19 01/28/19 01/28/19 Range/Units 03:04 03:04 03:04 WBC 18.8 H (3.8-10.6) k/uL RBC 5.52 H (3.80-5.40) m/uL MCV 78.5 L (80.0-100.0) fL RDW 15.6 H (11.5-15.5) % Neutrophils # 15.2 H (1.3-7.7) k/uL Glucose 151 H (74-99) mg/dL Ur Leukocyte Esterase Large H (Negative) Urine WBC 85 H (0-5) /hpf Urine Mucus Rare H (None) /hpf Diabetes panel 01/28/19 Range/Units 03:04 Sodium 139 (137-145) mmol/L Potassium 3.6 (3.5-5.1) mmol/L Chloride 107 (98-107) mmol/L Carbon Dioxide 22 (22-30) mmol/L BUN 10 (7-17) mg/dL Creatinine 0.74 (0.52-1.04) mg/dL Glucose 151 H (74-99) mg/dL Calcium 9.4 (8.4-10.2) mg/dL AST 14 (14-36) U/L ALT 23 (9-52) U/L Alkaline Phosphatase 67 (38-126) U/L Total Protein 7.2 (6.3-8.2) g/dL Albumin 4.2 (3.5-5.0) g/dL Calcium panel 01/28/19 Range/Units 03:04 Calcium 9.4 (8.4-10.2) mg/dL Albumin 4.2 (3.5-5.0) g/dL Pituitary panel 01/28/19 Range/Units 03:04 Sodium 139 (137-145) mmol/L Potassium 3.6 (3.5-5.1) mmol/L Chloride 107 (98-107) mmol/L Carbon Dioxide 22 (22-30) mmol/L BUN 10 (7-17) mg/dL Creatinine 0.74 (0.52-1.04) mg/dL Glucose 151 H (74-99) mg/dL Calcium 9.4 (8.4-10.2) mg/dL Adrenal panel 01/28/19 Range/Units 03:04 Sodium 139 (137-145) mmol/L Potassium 3.6 (3.5-5.1) mmol/L Chloride 107 (98-107) mmol/L Carbon Dioxide 22 (22-30) mmol/L BUN 10 (7-17) mg/dL Creatinine 0.74 (0.52-1.04) mg/dL Glucose 151 H (74-99) mg/dL Calcium 9.4 (8.4-10.2) mg/dL Total Bilirubin 0.7 (0.2-1.3) mg/dL AST 14 (14-36) U/L ALT 23 (9-52) U/L Alkaline Phosphatase 67 (38-126) U/L Total Protein 7.2 (6.3-8.2) g/dL Albumin 4.2 (3.5-5.0) g/dL - Imaging Abdominal x-ray: report reviewed, image reviewed CT scan - abdomen: report reviewed, image reviewed CT scan - pelvis: report reviewed, image reviewed Assessment and Plan Assessment: Impression: Lt ureteral caclulous with obstruction. Possible urinary tract infection with sepsis. Probble duplicated collecting system left Plan Ivf, ivab, cysto with probable left uretral catheter placement. If that fails she will need a nephrostomy tube with eventual pcnl. I explained to the patient that she probably has a duplicated system. was unable to int ubate the ureter with the stone his last attempt. I will attempt to repeat the cystoscopy identify the ureteral orifice and a possible place a double-J catheter. Again if that fails she'll need a nephrostomy tube and eventual antegrade ureteroscopy with stone removal.
[2019-01-28] MEDS ORDERED: fentaNYL (PF) 50 MCG/ML 2 ML AMP ONE (10:42)
[2019-01-28] MEDS ORDERED: PROPOFOL 10 MG/ML 20 ML VIAL IV ONE (10:42)
[2019-01-28] MEDS ORDERED: LIDOCAINE 1% INJ 10MG/ML (20 ML MDV) ONE (10:42)
[2019-01-28] MEDS ORDERED: IV FLUID CONTINUATION 1,000 ML IV ONE (10:42)
[2019-01-28] MEDS ORDERED: KETAMINE 10 MG/ML 20 ML VIAL ONE (10:42)
[2019-01-28] MEDS ORDERED: GLYCOPYRROLATE 0.2 MG/ML 2 ML VIAL ONE (10:42)
[2019-01-28] MEDS ORDERED: MIDAZOLAM 2 MG/2 ML VIAL ONE (10:42)
[2019-01-28] MEDS ORDERED: IOHEXOL 300 MG/ML 50 ML BOTTLE MISCELLANE ONE ×2 (10:54)
[2019-01-28] MEDS ORDERED: LACTATED RINGERS 1,000 ML IV ONE (11:18)
[2019-01-28] MEDS ORDERED: HYDROcodone/APAP 5-325MG 1 EACH TAB PO PRN (11:28)
--- NOTE | 2019-01-28 11:34 | P.OP ---
Date of Procedure: 01/28/19 Preoperative Diagnosis: Left ureteral calculus with obstruction, urinary tract infection with sepsis Postoperative Diagnosis: Same, complete duplication of left collecting system Procedure(s) Performed: Cystoscopy, retrograde pyelogram of each left ureter, placement of 6 x 24 double-J catheter to the lower pole left ureter, collection of urine from left lower pole of the kidney for culture Anesthesia: MAC Surgeon: Pascual Correa Estimated Blood Loss (ml): 0 Pathology: other (Urine culture) Condition: stable Disposition: PACU Indications for Procedure: The patient is 33. Several weeks ago she presented to the hospital and then office with an 8 mm apparent ureteral stone. In my absence Dr. Garza did a left retrograde pyelogram that did not identify the stone in the ureter. Because of the pain and question he did a computed tomography scan that showed she probably had a duplicated system with a stone in the lower pole collecting system. He was unable to see to orifices at the time of the cystoscopy but there was a fair amount of edema on the floor the bladder. She comes for a retrograde pyelogram. She appears to be septic as she is tachycardic, white count of 18,000 and and a lactic acid of 2.8 Description of Procedure: The patient is brought to the operating suite. She is given IV sedation. A sterile prep and drape was administered. Cystoscopy with a Foroblique lens and 22-Israeli sheath identifies a normal urethra. I irrigate the bladder free of debris. The trigone is inspected. There is one orifice on the right. There are 2 orifices on the left right next to one another. The rest the bladder is unremarkable. Within a cone-tipped catheter I first do a retrograde pyelogram to the more medial orifice. Uniquely this is draining the upper pole. I then do a retrograde pyelogram to the left lateral orifice on the trigone and this indeed is draining the lower pole and the obstructing stone. With some difficulty I am eventually able to pass an 035 wire through an open-ended catheter up into the lower pole collecting system. Over the wire pass the 5- Israeli open-ended catheter and collect urine for culture. Because she is septic I will not do a stone manipulation but we'll place a stent. I removed the open-ended catheter and then over the wire pass a 6 x 24 double-J catheter that coils in the renal pelvis and in the bladder. The bladder strain the patient's awakened and returned recovery room good condition Impression obstructing ureteral stone to left lower pole collecting system in a completely duplicated system. The patient will at a later date get a stone manipulation to remove the stent and stone
[2019-01-28] MEDS ORDERED: PHENAZOPYRIDINE 200 MG TAB PO PRN (13:00)
[2019-01-28] MEDS ORDERED: FAMOTIDINE 20 MG TAB PO PRN (13:00)
[2019-01-28] MEDS ORDERED: GABAPENTIN 400 MG CAP PO PRN (13:00)
[2019-01-28] MEDS ORDERED: traMADol 50 MG TAB PO PRN (13:00)
[2019-01-28] MEDS ORDERED: BACLOFEN 10 MG TAB PO PRN (13:00)
[2019-01-28] MEDS ORDERED: ALBUTEROL NEBULIZED 2.5 MG/3 ML INHALATION PRN (13:03)
[2019-01-28] MEDS: LABETALOL 200 MG TAB PO SCH (13:38)
[2019-01-28] MEDS: SUMAtriptan SUCCINATE 50 MG TAB PO PRN (15:03)
[2019-01-28] MEDS ORDERED: AMITRIPTYLINE HCL 25 MG TAB PO SCH (21:00)
[2019-01-29] MEDS: SUMAtriptan SUCCINATE 50 MG TAB PO PRN (03:27)
[2019-01-29] MEDS: SODIUM CHLORIDE 0.9% 1,000 ML IV SCH (05:43)
--- NOTE | 2019-01-29 07:30 | P.DS ---
Providers Date of admission: 01/28/19 04:13 Attending physician: Pascual Correa Primary care physician: [facility] Course: The patient is 33. She for several weeks have been trying to pass a ureteral stone. She failed to do so and was admitted to the hospital on 01/28/2019. It became evident that she was septic. On 01/28/2019 she had a double-J catheter placed in the lower pole ureter to completely duplicated left system. This relieved her pain. She has some mild stent irritation. She had some low-grade temperature as expected. Cultures are pending. The patient wishes to be discharged home. He'll be given a prescription of Bactrim double strength. She has tramadol at home. I will make arrangements for cystoscopy stent and stone removal for about 10 days to 2 weeks. Postoperative instructions of been given. Her condition is good. Patient Condition at Discharge: Good Plan - Discharge Summary Discharge Rx Participant: No New Discharge Prescriptions: New Sulfamethox-Tmp 800-160Mg [Bactrim DS 800-160 mg] 1 tab PO Q12HR #30 tab No Action Ranitidine HCl [Zantac] 150 mg PO BID PRN PRN Reason: Heartburn Gabapentin 800 mg PO QID PRN PRN Reason: nerve pain Amitriptyline HCl [Elavil] 25 mg PO HS Sertraline [Zoloft] 100 mg PO DAILY Baclofen [Lioresal] 10 mg PO BID PRN PRN Reason: Pain Albuterol Inhaler [Ventolin Hfa Inhaler] 1 - 2 puff INHALATION DIRECTED PRN PRN Reason: sob SUMAtriptan SUCCINATE [Imitrex] 100 mg PO DIRECTED PRN PRN Reason: migraines Tamsulosin HCl [Flomax] 0.4 mg PO HS PRN PRN Reason: URINARY RETENTION Naproxen Sodium [Aleve] 220 - 440 mg PO BID PRN PRN Reason: Pain traMADol HCL [Ultram] 50 - 100 mg PO Q6HR PRN PRN Reason: Pain Phenazopyridine HCl [Pyridium] 200 mg PO TID PRN PRN Reason: bladder pain Labetalol HCl 200 mg PO DAILY Discharge Medication List Albuterol Inhaler [Ventolin Hfa Inhaler] 1 - 2 puff INHALATION DIRECTED PRN 10/13/18 [History] Amitriptyline HCl [Elavil] 25 mg PO HS 10/13/18 [History] Baclofen [Lioresal] 10 mg PO BID PRN 10/13/18 [History] Gabapentin 800 mg PO QID PRN 10/13/18 [History] Ranitidine HCl [Zantac] 150 mg PO BID PRN 10/13/18 [History] SUMAtriptan SUCCINATE [Imitrex] 100 mg PO DIRECTED PRN 10/13/18 [History] Sertraline [Zoloft] 100 mg PO DAILY 10/13/18 [History] Naproxen Sodium [Aleve] 220 - 440 mg PO BID PRN 12/11/18 [History] Tamsulosin HCl [Flomax] 0.4 mg PO HS PRN 12/11/18 [History] traMADol HCL [Ultram] 50 - 100 mg PO Q6HR PRN 12/11/18 [History] Labetalol HCl 200 mg PO DAILY 01/28/19 [History] Phenazopyridine HCl [Pyridium] 200 mg PO TID PRN 01/28/19 [History] Sulfamethox-Tmp 800-160Mg [Bactrim DS 800-160 mg] 1 tab PO Q12HR #30 tab 01/29/19 [Rx] Follow up Appointment(s)/Referral(s): Pedro Joe DO [Primary Care Provider] - 1-2 days Pascual Correa MD [STAFF PHYSICIAN] - 1 Week Activity/Diet/Wound Care/Special Instructions: resume all home meds Discharge Disposition: HOME SELF-CARE
--- NOTE | 2019-01-29 07:51 | FL ---
EXAMINATION TYPE: FL urography retrograde DATE OF EXAM: 01/28/2019 COMPARISON: CT abdomen and pelvis January 12, 2019 HISTORY: Obstructing left ureter calculus TECHNIQUE: Fluoroscopy. FINDINGS: Fluoroscopic guidance was provided during retrograde urogram procedure performed by Dr. Sameer clark. A total of 3 minutes 31 seconds of fluoroscopic time was utilized during the procedure and 6 sp ot images was acquired. Images acquired show access of left ureter with eventual placement of double- J ureter stent. IMPRESSION: As Above.
[2019-01-29] MEDS: LABETALOL 200 MG TAB PO SCH (08:16)
[2019-01-29 08:42] VITALS: BP 129/87; PULSE 104; RESP 20; TEMP 98.5
[2019-01-29] MEDS ORDERED: LABETALOL 100 MG TAB PO SCH (09:00)
[2019-01-29] MEDS ORDERED: SERTRALINE 100 MG TAB PO SCH (09:00)
== END 2019-01-29 08:30 | disposition home or self-care (01) | DRG 854 ==
LOC: EC 02:42 → 6PED 04:13
PROVIDERS: ADMIT Urology; ATTEND Urology
PROC: 0T778DZ Dilation of Left Ureter with Intraluminal Device, Via Natural or Artificial Opening Endoscopic (ICD-10-PCS; 2019-01-28)
PROC: BT1F1ZZ Fluoroscopy of Left Kidney, Ureter and Bladder using Low Osmolar Contrast (ICD-10-PCS; principal; 2019-01-28 10:30)
DX: A41.50 Gram-negative sepsis, unspecified (principal); N39.0 Urinary tract infection, site not specified; N20.1 Calculus of ureter; Q62.5 Duplication of ureter; E28.2 Polycystic ovarian syndrome; F17.210 Nicotine dependence, cigarettes, uncomplicated; F32.9 Major depressive disorder, single episode, unspecified; F41.9 Anxiety disorder, unspecified; G47.30 Sleep apnea, unspecified; J45.909 Unspecified asthma, uncomplicated; K21.9 Gastro-esophageal reflux disease without esophagitis; M79.7 Fibromyalgia; Z79.899 Other long term (current) drug therapy; Z87.442 Personal history of urinary calculi; G47.10 Hypersomnia, unspecified; I83.90 Asymptomatic varicose veins of unspecified lower extremity; M10.9 Gout, unspecified; H26.9 Unspecified cataract; Z80.9 Family history of malignant neoplasm, unspecified; Z88.6 Allergy status to analgesic agent; Z88.1 Allergy status to other antibiotic agents; M19.90 Unspecified osteoarthritis, unspecified site
CPT/HCPCS: 36415; 74018; 74420; 80053; 81001; 81025; 82150; 83605; 83690; 85025; 87077; 87086; 87186; 96361; 96365; 96375; 96376; 99285

== ENCOUNTER 2019-02-06 12:20 | Day surgery (SDC) | payer OTHER ==
[2019-02-02 17:26] VITALS: BMI 41.1
--- NOTE | 2019-02-05 20:42 | P.GSHP ---
History of Present Illness H&P Date: 02/05/19 33 yo female ith an 8 mm stone i the lower ureter of a completely duplicated left system the patient had a stent placed because of infected urine She now comes for a ureteroscopy left with laser lithotripsy. - Constitutional Constitutional: Denies chills, Denies fever - EENT Eyes: denies blurred vision, denies pain Ears, nose, mouth and throat: Denies headache, Denies sore throat - Cardiovascular Cardiovascular: Denies chest pain, Denies shortness of breath - Respiratory Respiratory: Denies cough, Denies 7 - Gastrointestinal Gastrointestinal: Denies abdominal pain, Denies diarrhea, Denies nausea, Denies vomiting - Genitourinary (Female) Genitourinary: Denies dysuria, Denies hematuria - Genitourinary (Male) Genitourinary: Denies dysuria, Denies hematuria - Musculoskeletal Musculoskeletal: Denies myalgias - Integumentary Integumentary: Denies pruritus, Denies rash - Neurological Neurological: Denies numbness, Denies weakness - Psychiatric Psychiatric: Denies anxiety, Denies depression - Endocrine Endocrine: Denies fatigue, Denies weight change Past Medical History Past Medical History: Asthma, Fibromyalgia, GERD/Reflux, Osteoarthritis (OA), Skin Disorder, Sleep Apnea/CPAP/BIPAP Additional Past Medical History / Comment(s): Migraines, kidney stones, back and neck pain, HAROON CTS,PCOS, varicose veins, hypersomnia, no cpap used, hx ulcer, gout, DERMATITIS HANDS. History of Any Multi-Drug Resistant Organisms: None Reported Past Surgical History: Appendectomy, Cholecystectomy Additional Past Surgical History / Comment(s): Cyst removed left ovary w/reconstruction, Sinus surgery, Rt ovarian cyst removed, oral surgery. ESWL - unsuccessful treatment left ureteral calculus 10/16/2018, cystoscopy w/double J catheter placement 01-28-19 Past Anesthesia/Blood Transfusion Reactions: Previous Problems w/ Anesthesia Additional Past Anesthesia/Blood Transfusion Reaction / Comment(s): bronchospasm with surgery at [facility] 04/2017, recent cystoscopy 01-28-19 w/no problem Past Psychological History: Anxiety, Depression Additional Psychological History / Comment(s): RECENT ANXIETY R/T MOTHER'S CA DIAGNOSIS. VERY ANXIOUS PRIOR TO SURGERY. Smoking Status: Current every day smoker Past Alcohol Use History: None Reported Additional Past Alcohol Use History / Comment(s): has smoked since age 26, smokes 1/2 PPD Past Drug Use History: None Reported - Past Family History Mother Family Medical History: Cancer Medications and Allergies Home Medications Medication Instructions Recorded Confirmed Type Albuterol Inhaler [Ventolin Hfa 1 - 2 puff INHALATION DIRECTED 10/13/18 02/02/19 History Inhaler] PRN Amitriptyline HCl [Elavil] 25 mg PO HS 10/13/18 02/02/19 History Baclofen [Lioresal] 10 mg PO BID PRN 10/13/18 02/02/19 History Gabapentin 800 mg PO QID PRN 10/13/18 02/02/19 History Ranitidine HCl [Zantac] 150 mg PO BID PRN 10/13/18 02/02/19 History SUMAtriptan SUCCINATE [Imitrex] 100 mg PO DIRECTED PRN 10/13/18 02/02/19 History Sertraline [Zoloft] 100 mg PO DAILY 10/13/18 02/02/19 History Naproxen Sodium [Aleve] 220 - 440 mg PO BID PRN 12/11/18 02/02/19 History Tamsulosin HCl [Flomax] 0.4 mg PO HS PRN 12/11/18 02/02/19 History traMADol HCL [Ultram] 50 - 100 mg PO Q6HR PRN 12/11/18 02/02/19 History Labetalol HCl 200 mg PO DAILY 01/28/19 02/02/19 History Phenazopyridine HCl [Pyridium] 200 mg PO TID PRN 01/28/19 02/02/19 History Sulfamethox-Tmp 800-160Mg [Bactrim 1 tab PO Q12HR #30 tab 01/29/19 02/02/19 Rx DS 800-160 mg] Allergies Allergy/AdvReac Type Severity Reaction Status Date / Time ciprofloxacin [From Cipro] Allergy Rash/Hives Verified 02/02/19 16:58 ciprofloxacin HCl Allergy Rash/Hives Verified 02/02/19 16:58 [From Cipro] ibuprofen [From Motrin] Allergy Rash/Hives Verified 02/02/19 16:58 ketorolac tromethamine Allergy Rash/Hives Verified 02/02/19 16:58 [From Toradol] morphine Allergy Rash/Hives Verified 02/02/19 16:58 Penicillins Allergy Rash/Hives Verified 02/02/19 16:58 Surgical - Exam - General well developed, well nourished, no distress - Eyes PERRL - ENT no hearing loss - Neck trachea midline - Respiratory normal expansion, normal respiratory effort - Cardiovascular Rhythm: regular - Abdomen Abdomen: soft, non tender - Integumentary no rash, no growths - Neurologic normal coordination, normal sensation - Musculoskeletal normal gait, normal posture - Psychiatric oriented to time, oriented to person, oriented to place, speech is normal, memory intact Results - Imaging Abdominal x-ray: report reviewed, image reviewed CT scan - abdomen: report reviewed, image reviewed CT scan - pelvis: report reviewed, image reviewed Assessment and Plan Assessment: Impression: Left ureteral stone in mid to proximal lower pole ureter of a completely duplicated left sytem Plan: Left ureteroscopy with laser lithotripsy and stent removal
[~2019-02-06 12:20] MED LIST changes: +DEXAMETHASONE SOD PHOSPHATE 10 MG/ML 1 ML VIAL IV ONE; +GENTAMICIN 120 MG in SODIUM CHLORIDE 0.9% 100 ML IVPB ONE; +HYDROmorphone 0.5 MG/0.5 ML SYRINGE IVP PRN; +LACTATED RINGERS 1,000 ML IV SCH; +LIDOCAINE 1% 20 ML VIAL (10MG/ML) FOR IV START INTRADERMA PRN; +MIDAZOLAM (PF) 2 MG/2 ML VIAL IV PRN; +ONDANSETRON 4 MG/2 ML VIAL IVP ONE; -ceFAZolin 1,000 MG in DEXTROSE/WATER 1 50ML.BAG IVPB ONE; +fentaNYL (PF) 50 MCG/ML 2 ML AMP IV PRN
--- NOTE | 2019-02-06 12:54 | XR ---
EXAMINATION TYPE: XR KUB DATE OF EXAM: 02/06/2019 HISTORY: Pain Comparison: None. Single KUB is submitted for interpretation. Findings: Right renal calculi: None Visualized. Right ureteral calculi: None Visualized. Left renal calculi: None Visualized. Left ureteral calculi: Double pigtail left ureteral stent is noted to be in place. 6.5 mm calculus ad jacent to the left ureteral stent at the left L5 transverse process. Pelvic calcifications: None Visualized. Bowel gas pattern is unremarkable. No free air. No mass effects. IMPRESSION: 1. Double pigtail left ureteral stent is noted to be in place. 6.5 mm calculus adjacent to the left u reteral stent at the left L5 transverse process.
[2019-02-06 13:10] VITALS: RESP 16
[2019-02-06] MEDS ORDERED: MIDAZOLAM 2 MG/2 ML VIAL ONE (13:49)
[2019-02-06] MEDS ORDERED: LIDOCAINE 1% INJ 10MG/ML (20 ML MDV) ONE (13:49)
[2019-02-06] MEDS ORDERED: fentaNYL (PF) 50 MCG/ML 2 ML AMP ONE (13:49)
[2019-02-06] MEDS ORDERED: PROPOFOL 10 MG/ML 20 ML VIAL IV ONE (13:49)
[2019-02-06] MEDS ORDERED: SUCCINYLCHOLINE CHLORIDE 100 MG/5 ML SYR IV ONE (13:49)
[2019-02-06] MEDS ORDERED: LACTATED RINGERS 1,000 ML IV ONE (15:05)
[2019-02-06 15:20] VITALS: TEMP 97.3
--- NOTE | 2019-02-06 15:20 | FL ---
Fluoroscopy History: Left ureter calculi 1:01 fluoro time
--- NOTE | 2019-02-06 15:22 | P.OP ---
Date of Procedure: 02/06/19 Preoperative Diagnosis: Left ureteral stone with obstruction, urinary tract infection with sepsis Postoperative Diagnosis: Same Procedure(s) Performed: Cystoscopy, removal double-J catheter left, ureteroscopy with laser lithotripsy and stone basketing left, replacement of 6 x 24 double-J catheter Anesthesia: ANIBAL Surgeon: Psacual Correa Estimated Blood Loss (ml): 10 Pathology: other (Stone) Condition: stable Disposition: PACU Indications for Procedure: The patient is 33. Several weeks ago she obstructed a left ureteral stone in her proximal ureter. It became apparent that she had a complete duplication of her left urinary system. The stone was was in the ureter draining the left lower pole. The 2 orifices were on the trigone the lower pole was more lateral than the upper pole. One week ago with stent was placed in the ureter containing the stone because of urinary tract infection with sepsis. She now comes for stent and stone removal Description of Procedure: Patient is brought to the operating suite. She given a successful general endotracheal anesthesia. Sterile prep and drape was administered. Cystoscopy Foroblique lens and 22-Bhutanese sheath identifies an inflamed trigone. There is an encrusted stent in the left ureteral orifice. It is grasped and pulled to the urethral meatus. Through the stent an 035 wires passed up into the collecting system. I am unable to bypass the stone. I then pass a semirigid scope up to the stone. Through the semirigid scope there were 35 wires able to manipulate through the opening previously created for the stent. I removed the ureteroscope off the wire. Alongside the wire pass ureteroscope up into the proximal ureter where the stone was quite impacted. It is quite large. With the 200 laser probe and 4-6 W of energy the stone was broken into tiny pieces and flushed out of the ureter. The larger pieces were then basketed. I inspect the area where the stone had been impacted. Edematous thus I will replace a stent. I thus removed the ureteroscope. I collect the specimen out of the bladder. Then over the wires passed a new 6 x 24 double-J catheter that coils in the renal pelvis and in the bladder. The bladder strain the patient awake and returned recovery in good condition. She tell procedure well be discharged home on upon recovery. She'll follow-up in the office in one week for stent removal.
[2019-02-06] MEDS ORDERED: BELLADONNA-OPIUM 16.2-60 MG 1 EACH SUPP RECTAL ONE (15:30)
[2019-02-06 16:27] VITALS: BP 154/91; PULSE 76
== END 2019-02-06 16:40 | disposition home or self-care (01) ==
LOC: OR 12:20
PROVIDERS: ATTEND Urology
DX: N20.1 Calculus of ureter (principal); Q62.5 Duplication of ureter; A41.9 Sepsis, unspecified organism; N39.0 Urinary tract infection, site not specified; F17.200 Nicotine dependence, unspecified, uncomplicated; I10 Essential (primary) hypertension; K21.9 Gastro-esophageal reflux disease without esophagitis; Z88.0 Allergy status to penicillin; Z88.1 Allergy status to other antibiotic agents; Z88.5 Allergy status to narcotic agent; Z88.6 Allergy status to analgesic agent; Z79.899 Other long term (current) drug therapy
CPT/HCPCS: 81025; 82365; 74018; 52356; C2625; C1769; J2250; J1580; J1100; J2405; J2001; J3010; J0330; J2704

== ENCOUNTER → 2019-03-27 | Outpatient (CLI) | payer OTHER ==
--- NOTE | 2019-03-27 13:30 | US ---
EXAMINATION TYPE: US kidneys/renal and bladder DATE OF EXAM: 03/27/2019 COMPARISON: CT dated 01/12/2019 CLINICAL HISTORY: N20.1 Calculus of Ureter,R93.4 Lt Hydronephrosis. History of kidney stones, left hy dronephrosis EXAM MEASUREMENTS: Right Kidney: 12.3 x 4.3 x 6.4 cm Left Kidney: 14.5 x 5.7 x 5.4 cm *Technical limitations due to patient's body habitus and interfering bowel content Right Kidney: no evidence of hydronephrosis Left Kidney: cystic area upper pole = 4.8 x 4.3 x 4.1cm, minimally dilated collecting system Bladder: appears wnl Bilateral Jets seen: no There is no evidence for hydronephrosis on the right. No nephrolithiasis is seen. No masses are sana ntified on the right. The urinary bladder is anechoic. Bilateral ureteral jets are not seen. IMPRESSION: In addition to a benign-appearing left parapelvic renal cyst diving into the renal pelvis there remai ns mild left hydronephrosis, appearing to minimally decreased since the prior CT of 01/12/2019.
== END ==
LOC: RADUSWWP 12:43
PROVIDERS: ATTEND Urology
DX: N28.1 Cyst of kidney, acquired (principal); N13.30 Unspecified hydronephrosis; Z87.442 Personal history of urinary calculi; Z88.0 Allergy status to penicillin; Z88.5 Allergy status to narcotic agent; Z88.1 Allergy status to other antibiotic agents; Z88.6 Allergy status to analgesic agent
CPT/HCPCS: 76770

== ENCOUNTER 2019-06-02 07:55 | Emergency (ER) | payer OTHER ==
[2019-06-02 08:00] VITALS: TEMP 98.1
[2019-06-02] MEDS ORDERED: SODIUM CHLORIDE 0.9% 500 ML 500 ML IV STA (08:03)
[2019-06-02] MEDS ORDERED: SODIUM CHLORIDE 0.9% 1,000 ML IV STA (08:03)
[2019-06-02] MEDS ORDERED: ONDANSETRON 4 MG/2 ML VIAL IVP STA ×2 (08:09→09:49)
[2019-06-02] MEDS ORDERED: HYDROmorphone 1 MG/ML 1 ML SYRINGE IVP STA ×2 (08:09→10:36)
--- NOTE | 2019-06-02 08:10 | ED ---
Abdominal Pain HPI <Sonny Prado - Last Filed: 06/02/19 11:44> - General Source: patient, RN notes reviewed Mode of arrival: ambulatory Limitations: no limitations <Pedro Edward - Last Filed: 06/02/19 11:49> - General Chief Complaint: Abdominal Pain Stated Complaint: kidney pain Time Seen by Provider: 06/02/19 08:00 - History of Present Illness Initial Comments: 33-year-old female presents emergency Department chief complaint of left flank pain. Patient states a sudden onset of pain earlier this morning. Patient does have a long history of kidney stones and states he feels same. She denies any vomiting states nauseated no diarrhea no constipation no dysuria no hematuria no fevers chills. Patient has had stents placed along with lithotripsy for stones. Patient's urologist is Dr. Correa. (Pedro Edward) - Related Data Home Medications Medication Instructions Recorded Confirmed Albuterol Inhaler [Ventolin Hfa 1 - 2 puff INHALATION DIRECTED 10/13/18 02/06/19 Inhaler] PRN Amitriptyline HCl [Elavil] 25 mg PO HS 10/13/18 02/06/19 Baclofen [Lioresal] 10 mg PO BID PRN 10/13/18 02/06/19 Gabapentin 800 mg PO QID PRN 10/13/18 02/06/19 Ranitidine HCl [Zantac] 150 mg PO BID PRN 10/13/18 02/06/19 SUMAtriptan SUCCINATE [Imitrex] 100 mg PO DIRECTED PRN 10/13/18 02/06/19 Sertraline [Zoloft] 100 mg PO DAILY 10/13/18 02/06/19 Naproxen Sodium [Aleve] 220 - 440 mg PO BID PRN 12/11/18 02/06/19 Tamsulosin HCl [Flomax] 0.4 mg PO HS PRN 12/11/18 02/06/19 traMADol HCL [Ultram] 50 - 100 mg PO Q6HR PRN 12/11/18 02/06/19 Labetalol HCl 200 mg PO DAILY 01/28/19 02/06/19 Phenazopyridine HCl [Pyridium] 200 mg PO TID PRN 01/28/19 02/06/19 Previous Rx's Medication Instructions Recorded Sulfamethox-Tmp 800-160Mg [Bactrim 1 tab PO Q12HR #30 tab 01/29/19 DS 800-160 mg] Sulfamethox-Tmp 800-160Mg [Bactrim 1 tab PO Q12HR #20 tab 02/06/19 DS 800-160 mg] Allergies Allergy/AdvReac Type Severity Reaction Status Date / Time ciprofloxacin [From Cipro] Allergy Rash/Hives Verified 06/02/19 08:00 ciprofloxacin HCl Allergy Rash/Hives Verified 06/02/19 08:00 [From Cipro] ibuprofen [From Motrin] Allergy Rash/Hives Verified 06/02/19 08:00 ketorolac tromethamine Allergy Rash/Hives Verified 06/02/19 08:00 [From Toradol] morphine Allergy Rash/Hives Verified 06/02/19 08:00 Penicillins Allergy Rash/Hives Verified 06/02/19 08:00 Review of Systems ROS Other: All systems not noted in ROS Statement are negative. <Sonny Prado - Last Filed: 06/02/19 11:44> ROS Other: All systems not noted in ROS Statement are negative. <Pedro Edward - Last Filed: 06/02/19 11:49> ROS Statement: Those systems with pertinent positive or pertinent negative responses have been documented in the HPI. Past Medical History Past Medical History: Asthma, Fibromyalgia, GERD/Reflux, Osteoarthritis (OA), Skin Disorder, Sleep Apnea/CPAP/BIPAP Additional Past Medical History / Comment(s): Migraines, kidney stones, back and neck pain, HAROON CTS,PCOS, varicose veins, hypersomnia, no cpap used, hx ulcer, gout, DERMATITIS HANDS. History of Any Multi-Drug Resistant Organisms: None Reported Past Surgical History: Appendectomy, Cholecystectomy Additional Past Surgical History / Comment(s): Cyst removed left ovary w/reconstruction, Sinus surgery, Rt ovarian cyst removed, oral surgery. ESWL - unsuccessful treatment left ureteral calculus 10/16/2018, cystoscopy w/double J catheter placement 01-28-19 Past Anesthesia/Blood Transfusion Reactions: Previous Problems w/ Anesthesia Additional Past Anesthesia/Blood Transfusion Reaction / Comment(s): bronchospasm with surgery at [facility] 04/2017, recent cystoscopy 01-28-19 w/no problem Past Psychological History: Anxiety, Depression Smoking Status: Current every day smoker Past Alcohol Use History: None Reported Past Drug Use History: None Reported - Past Family History Mother Family Medical History: Cancer <Pedro Edward - Last Filed: 06/02/19 11:49> General Exam Limitations: no limitations General appearance: alert, in no apparent distress Head exam: Present: atraumatic, normocephalic, normal inspection Eye exam: Present: normal appearance, PERRL, EOMI. Absent: scleral icterus, conjunctival injection, periorbital swelling ENT exam: Present: normal exam, mucous membranes moist Neck exam: Present: normal inspection. Absent: tenderness, meningismus, lymphadenopathy Respiratory exam: Present: normal lung sounds bilaterally. Absent: respiratory distress, wheezes, rales, rhonchi, stridor Cardiovascular Exam: Present: regular rate, normal rhythm, normal heart sounds. Absent: systolic murmur, diastolic murmur, rubs, gallop, clicks GI/Abdominal exam: Present: soft, tenderness (Minimal left-sided), normal bowel sounds. Absent: distended, guarding, rebound, rigid Back exam: Present: CVA tenderness (L). Absent: CVA tenderness (R) Neurological exam: Present: alert, oriented X3, CN II-XII intact Skin exam: Present: warm, dry, intact, normal color. Absent: rash <Pedro Edward - Last Filed: 06/02/19 11:49> Course Vital Signs 06/02/19 06/02/19 07:56 11:19 Temperature 98.1 F Pulse Rate 95 72 Respiratory 16 18 Rate Blood Pressure 189/111 181/139 O2 Sat by Pulse 97 98 Oximetry Medical Decision Making - Lab Data Result diagrams: 06/02/19 08:09 06/02/19 08:09 <Sonny Prado - Last Filed: 06/02/19 11:44> - Lab Data Result diagrams: 06/02/19 08:09 06/02/19 08:09 <Pedro Edward - Last Filed: 06/02/19 11:49> - Medical Decision Making Patient reevaluated and reexamined by myself, Dr. Prado. Patient resting in bed and still appears uncomfortable. Patient does have some tenderness left flank and left CVA region. Chart and results reviewed. Patient still has discomfort despite several doses of pain and nausea medication. Patient still feels nauseated. Patient has had high blood pressure and was unable to take her medication this morning. Patient will be provided dose of IV medication and this will be reevaluated. I do agree with PA findings. This includes diagnostic interpretation a couple plan. Case was discussed in detail with Dr. [place] who is familiar with this patient and will admit. (Sonny Prado) - Lab Data Lab Results 06/02/19 06/02/19 06/02/19 Range/Units 08:09 08:09 08:09 WBC 11.5 H (3.8-10.6) k/uL RBC 5.53 H (3.80-5.40) m/uL Hgb 15.4 (11.4-16.0) gm/dL Hct 45.7 (34.0-46.0) % MCV 82.6 (80.0-100.0) fL MCH 27.8 (25.0-35.0) pg MCHC 33.7 (31.0-37.0) g/dL RDW 15.5 (11.5-15.5) % Plt Count 283 (150-450) k/uL Neutrophils % 69 % Lymphocytes % 20 % Monocytes % 5 % Eosinophils % 4 % Basophils % 1 % Neutrophils # 8.0 H (1.3-7.7) k/uL Lymphocytes # 2.3 (1.0-4.8) k/uL Monocytes # 0.6 (0-1.0) k/uL Eosinophils # 0.5 (0-0.7) k/uL Basophils # 0.1 (0-0.2) k/uL Sodium 141 (137-145) mmol/L Potassium 4.2 (3.5-5.1) mmol/L Chloride 105 (98-107) mmol/L Carbon Dioxide 28 (22-30) mmol/L Anion Gap 8 mmol/L BUN 12 (7-17) mg/dL Creatinine 0.87 (0.52-1.04) mg/dL Est GFR (CKD-EPI)AfAm >90 (>60 ml/min/1.73 sqM) Est GFR (CKD-EPI)NonAf 89 (>60 ml/min/1.73 sqM) Glucose 120 H (74-99) mg/dL Calcium 9.2 (8.4-10.2) mg/dL Total Bilirubin 0.6 (0.2-1.3) mg/dL AST 21 (14-36) U/L ALT 27 (9-52) U/L Alkaline Phosphatase 70 (38-126) U/L Total Protein 7.6 (6.3-8.2) g/dL Albumin 4.5 (3.5-5.0) g/dL Amylase 48 (30-110) U/L Lipase 31 (23-300) U/L Urine Color Urine Appearance (Clear) Urine pH (5.0-8.0) Ur Specific [place] (1.001-1.035) Urine Protein (Negative) Urine Glucose (UA) (Negative) Urine Ketones (Negative) Urine Blood (Negative) Urine Nitrite (Negative) Urine Bilirubin (Negative) Urine Urobilinogen (<2.0) mg/dL Ur Leukocyte Esterase (Negative) Urine HCG, Qual Not Detected (Not Detectd) 06/02/19 Range/Units 08:09 WBC (3.8-10.6) k/uL RBC (3.80-5.40) m/uL Hgb (11.4-16.0) gm/dL Hct (34.0-46.0) % MCV (80.0-100.0) fL MCH (25.0-35.0) pg MCHC (31.0-37.0) g/dL RDW (11.5-15.5) % Plt Count (150-450) k/uL Neutrophils % % Lymphocytes % % Monocytes % % Eosinophils % % Basophils % % Neutrophils # (1.3-7.7) k/uL Lymphocytes # (1.0-4.8) k/uL Monocytes # (0-1.0) k/uL Eosinophils # (0-0.7) k/uL Basophils # (0-0.2) k/uL Sodium (137-145) mmol/L Potassium (3.5-5.1) mmol/L Chloride (98-107) mmol/L Carbon Dioxide (22-30) mmol/L Anion Gap mmol/L BUN (7-17) mg/dL Creatinine (0.52-1.04) mg/dL Est GFR (CKD-EPI)AfAm (>60 ml/min/1.73 sqM) Est GFR (CKD-EPI)NonAf (>60 ml/min/1.73 sqM) Glucose (74-99) mg/dL Calcium (8.4-10.2) mg/dL Total Bilirubin (0.2-1.3) mg/dL AST (14-36) U/L ALT (9-52) U/L Alkaline Phosphatase (38-126) U/L Total Protein (6.3-8.2) g/dL Albumin (3.5-5.0) g/dL Amylase (30-110) U/L Lipase (23-300) U/L Urine Color Light Yellow Urine Appearance Clear (Clear) Urine pH 7.0 (5.0-8.0) Ur Specific [place] 1.009 (1.001-1.035) Urine Protein Negative (Negative) Urine Glucose (UA) Negative (Negative) Urine Ketones Negative (Negative) Urine Blood Negative (Negative) Urine Nitrite Negative (Negative) Urine Bilirubin Negative (Negative) Urine Urobilinogen <2.0 (<2.0) mg/dL Ur Leukocyte Esterase Negative (Negative) Urine HCG, Qual (Not Detectd) Disposition <Sonny Prado - Last Filed: 06/02/19 11:44> <Pedro Edward - Last Filed: 06/02/19 11:49> Clinical Impression: Left ureteral calculus, Intractable abdominal pain, Vomiting Disposition: ADMITTED IP TO THIS HOSP Condition: Fair Referrals: Pedro Joe DO [Primary Care Provider] - 1-2 days
[2019-06-02 08:45] LABS: Appearance,Urine Clear (Clear); Bilirubin,Urine Negative (Negative); Blood,Urine Negative (Negative); Color,Urine Light Yellow; Glucose,Urine (UA) Negative (Negative); Ketones,Urine Negative (Negative); Leukocyte Esterase,Urine Negative (Negative); Nitrite,Urine Negative (Negative); Protein,Urine Negative (Negative); Specific Gravity,Urine 1.009 (1.001-1.035); Urobilinogen,Urine <2.0 mg/dL (<2.0)
[2019-06-02 08:46] LABS: ALT 27 U/L (9-52); AST 21 U/L (14-36); African American GFR (CKD) >90 (>60 ml/min/1.73 sqM); Albumin 4.5 g/dL (3.5-5.0); Alkaline Phosphatase 70 U/L (38-126); Amylase 48 U/L (30-110); Anion Gap 8 mmol/L; Blood Urea Nitrogen 12 mg/dL (7-17); Calcium 9.2 mg/dL (8.4-10.2); Carbon Dioxide 28 mmol/L (22-30); Chloride 105 mmol/L (98-107); Glucose 120 mg/dL (74-99); Potassium 4.2 mmol/L (3.5-5.1); Sodium 141 mmol/L (137-145); Total Bilirubin 0.6 mg/dL (0.2-1.3); Total Protein 7.6 g/dL (6.3-8.2)
[2019-06-02 08:49] LABS: Basophils # (A) 0.1 k/uL (0-0.2); Basophils % (A) 1 %; Eosinophils # (A) 0.5 k/uL (0-0.7); Eosinophils % (A) 4 %; HCT 45.7 % (34.0-46.0); HGB 15.4 gm/dL (11.4-16.0); Lymphocytes # (A) 2.3 k/uL (1.0-4.8); Lymphocytes % (A) 20 %; MCH 27.8 pg (25.0-35.0); MCHC 33.7 g/dL (31.0-37.0); MCV 82.6 fL (80.0-100.0); Mean Platelet Volume 7.4; Monocytes # (A) 0.6 k/uL (0-1.0); Monocytes % (A) 5 %; Neutrophils % (A) 69 %; Platelet Count 283 k/uL (150-450); RBC 5.53 m/uL (3.80-5.40); RDW 15.5 % (11.5-15.5); WBC 11.5 k/uL (3.8-10.6)
[2019-06-02] MEDS ORDERED: HYDROmorphone 0.5 MG/0.5 ML SYRINGE IVP STA (09:14)
[2019-06-02] MEDS ORDERED: DIAZEPAM 5 MG/ML 2 ML INJ IVP STA (09:14)
--- NOTE | 2019-06-02 10:17 | CT ---
EXAMINATION TYPE: CT abdomen pelvis wo con DATE OF EXAM: 06/02/2019 COMPARISON: Previous study dated 01/12/2019. HISTORY: left flank pain CT DLP: 1331.9 mGycm Automated exposure control for dose reduction was used. FINDINGS: Visualized portions of the lungs are clear. There is no pleural or pericardial fluid. The h eart is not enlarged. There is a small, fixed sliding hiatal hernia. The gallbladder is been removed. The liver is unremarkable. The spleen is prominent measuring almost 15 cm in size. Both adrenal glands are normal. There is a stable, 4.8 cm cyst involving the anterior aspect of the mid polar region of the left kidn ey. There is a 7.4 mm calculus in the left mid ureter causing moderate hydronephrosis on the left. Th e right kidney is unremarkable. The pancreas is normal in appearance. There is no significant retroperitoneal, iliac or inguinal adenopathy. Bladder is unremarkable. The uterus is normal. There is follicular change present in both ovaries. There is no significant diverticular change and there is no radiographic evidence of diverticulitis. The appendix is been removed. There are small lymph nodes in the right lower quadrant. Small bowel loops are normal. There is no free fluid and no free air. There is disc space loss and a vacuum phenomena at L5-S1 and there is mild hypertrophic spondylosis i n the lower dorsal spine. IMPRESSION: 1. 7.4 MM CALCULUS IN THE LEFT MID URETER CAUSING MODERATE HYDRONEPHROSIS ON THE LEFT. 2. STABLE LEFT RENAL CYSTIC DISEASE. 3. SMALL, FIXED SLIDING HIATAL HERNIA. 4. MILD SPLENOMEGALY. 5. NONSPECIFIC ADENOPATHY IN THE RIGHT LOWER QUADRANT. 6. MILD DEGENERATIVE CHANGE WITHIN THE SPINE.
[2019-06-02] MEDS ORDERED: LABETALOL SYRINGE 5 MG/ML IVP STA ×2 (11:18→11:24)
[2019-06-02] MEDS ORDERED: diphenhydrAMINE 50 MG/ML 1 ML VIAL IVP STA (11:28)
[2019-06-02] MEDS ORDERED: METOCLOPRAMIDE 5 MG/ML 2 ML VIAL IVP STA (11:28)
[2019-06-02] MEDS ORDERED: HYDROmorphone 1 MG/ML 1 ML SYRINGE IVP PRN (11:49)
[2019-06-02] MEDS ORDERED: NALOXONE 0.4 MG/ML 1 ML VIAL IV PRN (11:49)
[2019-06-02] MEDS ORDERED: HYDROmorphone 0.5 MG/0.5 ML SYRINGE IVP PRN (11:49)
[2019-06-02] MEDS ORDERED: ONDANSETRON 4 MG/2 ML VIAL IVP PRN (11:49)
[2019-06-02] MEDS ORDERED: LABETALOL 5 MG/ML VIAL MDV IVP STA (11:59)
[2019-06-02] MEDS ORDERED: SODIUM CHLORIDE 0.9% 1,000 ML IV SCH (12:00)
[2019-06-02 14:16] VITALS: BP 133/83; PULSE 86; RESP 16
== END 2019-06-02 14:13 | disposition other institution (70) ==
LOC: EC 07:55 → 4SSUR 11:50 → UNDOADMIN 11:50 → EC 14:13
DX: N21.1 Calculus in urethra (principal); I10 Essential (primary) hypertension; J45.909 Unspecified asthma, uncomplicated; F32.9 Major depressive disorder, single episode, unspecified; F41.9 Anxiety disorder, unspecified; F17.200 Nicotine dependence, unspecified, uncomplicated; Z79.51 Long term (current) use of inhaled steroids; Z79.899 Other long term (current) drug therapy; Z88.0 Allergy status to penicillin; Z88.1 Allergy status to other antibiotic agents; Z88.6 Allergy status to analgesic agent; Z88.5 Allergy status to narcotic agent; Z90.49 Acquired absence of other specified parts of digestive tract; Z90.89 Acquired absence of other organs; Z98.890 Other specified postprocedural states
CPT/HCPCS: 36415; 80053; 82150; 83690; 85025; 81003; 81025; 74176; 99285; 96374; 96375 ×5; 96376 ×3; 96361; J1200; J2765; J3360; J2405; J1170 ×2

== ENCOUNTER → 2019-06-05 | Outpatient (CLI) | payer OTHER ==
--- NOTE | 2019-06-05 11:27 | XR ---
EXAMINATION TYPE: XR abdomen 1V DATE OF EXAM: 06/05/2019 10:07 AM CLINICAL HISTORY: Left-sided ureteral calculus TECHNIQUE: Single supine KUB image of the abdomen is obtained. COMPARISON: 02/06/2019 FINDINGS: There is redemonstration of an approximately 6.5 mm calculus that has slightly progressed i n comparison the prior exam. This now overlies the left S1 vertebral body and previously was seen at the L5 vertebral level. Left ureteral stent has been removed in the interim. Surgical clips are seen within the pelvis and right lower quadrant as well as within the right upper quadrant. No additional renal calculi are seen. Mild degenerative changes of the are noted. No dilated large or bowel. IMPRESSION: Left 6.5 mm ureteral calculus appears slightly more distal now overlying S1 and previousl y adjacent to L5. Left ureteral stent has been removed in the interim.
== END | disposition home or self-care (01) ==
LOC: RADXRMAIN 09:55
PROVIDERS: ATTEND Urology
DX: N20.1 Calculus of ureter (principal)
CPT/HCPCS: 74018

== ENCOUNTER 2019-08-28 09:11 | Emergency (ER) | payer OTHER ==
[2019-08-28 09:17] VITALS: TEMP 98.8
[2019-08-28] MEDS ORDERED: ORPHENADRINE 30 MG/ML 2 ML VIAL IM STA (09:36)
--- NOTE | 2019-08-28 10:00 | XR ---
EXAMINATION TYPE: XR cervical spine comp DATE OF EXAM: 08/28/2019 TECHNIQUE: Frontal, lateral, oblique, swimmers, and open mouth view of the cervical spine are obtaine d. HISTORY: Neck trauma with restricted range of motion . Neck pain. COMPARISON: 07/12/2016 FINDINGS: There is reversal usual cervical lordosis. The cervical spine is visualized in its entirety from C1 thru the top of T1 level, it is satisfactory in alignment without evidence of acute fracture or dislocation. The pre-vertebral soft tissue appears within normal limits. The C1-C2 articulation is within normal limits on the open mouth view. The oblique images are within normal limits. IMPRESSION: Reversal usual cervical lordosis that may be on the basis of muscular sprain/spasm or pa tient positioning. No acute fracture or malalignment is seen in the cervical spine.
--- NOTE | 2019-08-28 10:23 | ED ---
Neck Injury/Pain HPI - General Chief Complaint: Neck Pain/Injury Stated Complaint: [place] pop in neck Time Seen by Provider: 08/28/19 09:21 Source: patient, RN notes reviewed Mode of arrival: ambulatory Limitations: no limitations - History of Present Illness Initial Comments: Is a 34-year-old female who presents with complaints of left neck pain. She s tates this started this morning when she turned to get her alarm clock. She felt a popping sensation or neck nodes he has limited range of motion of her left side of her neck. She points to the left lateral posterior aspect the neck or trapezius muscle. She states she has had right shoulder blade pain for a period time of this went away as soon as the left neck pain started she has no loss of function to her upper or lower extremities no fevers chills nausea vomiting sweats or other symptoms she states she did have prior x-rays with no accent but no long-standing neck pain from that MD Complaint: neck pain - Related Data Home Medications Medication Instructions Recorded Confirmed Sertraline [Zoloft] 100 mg PO DAILY 10/13/18 08/28/19 Labetalol HCl 200 mg PO DAILY 01/28/19 08/28/19 Amitriptyline HCl [Elavil] 50 - 75 mg PO HS 06/02/19 08/28/19 Baclofen [Lioresal] 10 mg PO TID 06/02/19 08/28/19 Gabapentin [Neurontin] 300 mg PO TID 06/02/19 08/28/19 SUMAtriptan SUCCINATE [Imitrex] 100 mg PO DAILY PRN 06/02/19 08/28/19 oxyCODONE-APAP 7.5-325MG [Percocet 1 tab PO QID PRN 06/02/19 08/28/19 7.5-325 mg] Dandelion Root 525 mg PO DAILY 08/28/19 08/28/19 Methylphenidate HCl [Ritalin] 10 mg PO DAILY PRN 08/28/19 08/28/19 Omeprazole 20 mg PO DAILY 08/28/19 08/28/19 Previous Rx's Medication Instructions Recorded Orphenadrine [Norflex] 100 mg PO Q12H #7 tablet.er 08/28/19 predniSONE 20 mg PO BID #10 tab 08/28/19 Allergies Allergy/AdvReac Type Severity Reaction Status Date / Time ciprofloxacin [From Cipro] Allergy Rash/Hives Verified 08/28/19 09:27 ciprofloxacin HCl Allergy Rash/Hives Verified 08/28/19 09:27 [From Cipro] egg Allergy Unknown Verified 08/28/19 09:27 ibuprofen [From Motrin] Allergy Rash/Hives Verified 08/28/19 09:27 ketorolac tromethamine Allergy Rash/Hives Verified 08/28/19 09:27 [From Toradol] morphine Allergy Rash/Hives Verified 08/28/19 09:27 peanut Allergy Unknown Verified 08/28/19 09:27 Penicillins Allergy Rash/Hives Verified 08/28/19 09:27 Review of Systems ROS Statement: Those systems with pertinent positive or pertinent negative responses have been documented in the HPI. ROS Other: All systems not noted in ROS Statement are negative. Past Medical History Past Medical History: Asthma, Fibromyalgia, GERD/Reflux, Hypertension, Osteoarthritis (OA), Skin Disorder, Sleep Apnea/CPAP/BIPAP Additional Past Medical History / Comment(s): Migraines, kidney stones, back and neck pain, HAROON CTS,PCOS, varicose veins, hypersomnia, no cpap used, hx ulcer, gout, DERMATITIS HANDS. History of Any Multi-Drug Resistant Organisms: None Reported Past Surgical History: Appendectomy, Cholecystectomy Additional Past Surgical History / Comment(s): Cyst removed left ovary w/reconstruction, Sinus surgery, Rt ovarian cyst removed, oral surgery. ESWL - unsuccessful treatment left ureteral calculus 10/16/2018, cystoscopy w/double J catheter placement 01-28-19 Past Anesthesia/Blood Transfusion Reactions: Previous Problems w/ Anesthesia Additional Past Anesthesia/Blood Transfusion Reaction / Comment(s): bronchospasm with surgery at [facility] 04/2017, recent cystoscopy 01-28-19 w/no problem Past Psychological History: Anxiety, Depression Smoking Status: Current every day smoker Past Alcohol Use History: None Reported Past Drug Use History: None Reported - Past Family History Mother Family Medical History: Cancer General Exam - General Exam Comments Initial Comments: This is a well-developed well-nourished awake alert oriented 3 female Limitations: no limitations General appearance: alert, anxious Head exam: Present: atraumatic, normocephalic, normal inspection Eye exam: Present: normal appearance, PERRL, EOMI. Absent: scleral icterus, conjunctival injection, periorbital swelling ENT exam: Present: normal exam, mucous membranes moist Neck exam: Present: normal inspection, tenderness, other (Tenderness palpation over left lateral neck musculature and trapezius muscles this does reproduce the pain which she states is about 5 or 6/10 severity does increase with movement. No other tenderness elicited over the back scapula.). Absent: meningismus, full ROM, lymphadenopathy Respiratory exam: Present: normal lung sounds bilaterally. Absent: respiratory distress, wheezes, rales, rhonchi, stridor Cardiovascular Exam: Present: regular rate, normal rhythm, normal heart sounds. Absent: systolic murmur, diastolic murmur, rubs, gallop, clicks GI/Abdominal exam: Absent: distended, tenderness, guarding, rebound, rigid Extremities exam: Present: normal inspection, full ROM, normal capillary refill. Absent: tenderness, pedal edema, joint swelling, calf tenderness Back exam: Present: normal inspection Neurological exam: Present: alert, oriented X3, CN II-XII intact Psychiatric exam: Present: normal affect, normal mood Skin exam: Present: warm, dry, intact, normal color. Absent: rash Course Vital Signs 08/28/19 09:13 Temperature 98.8 F Pulse Rate 82 Respiratory 18 Rate Blood Pressure 125/78 O2 Sat by Pulse 96 Oximetry Medical Decision Making - Medical Decision Making No further workup is indicated this and the presentation consistent with muscle spasm as etiology of the pain. She will be placed on appropriate medication. - Radiology Data Radiology results: report reviewed (I did review the imaging and report no acute evidence of fracture subluxation some evidence of spasm), image reviewed Disposition Clinical Impression: Strain of neck muscle Disposition: HOME SELF-CARE Condition: Good Instructions (If sedation given, give patient instructions): Cervical Strain (ED) Prescriptions: Orphenadrine [Norflex] 100 mg PO Q12H #7 tablet.er predniSONE 20 mg PO BID #10 tab Is patient prescribed a controlled substance at d/c from ED?: No Referrals: Pedro Joe DO [Primary Care Provider] - 1-2 days
[2019-08-28 10:27] VITALS: BP 118/74; PULSE 80; RESP 16
== END 2019-08-28 10:26 | disposition home or self-care (01) ==
LOC: EC 09:11
DX: S16.1XXA Strain of muscle, fascia and tendon at neck level, initial encounter (principal); M79.7 Fibromyalgia; K21.9 Gastro-esophageal reflux disease without esophagitis; I10 Essential (primary) hypertension; M19.90 Unspecified osteoarthritis, unspecified site; F32.9 Major depressive disorder, single episode, unspecified; F41.9 Anxiety disorder, unspecified; F17.200 Nicotine dependence, unspecified, uncomplicated; Z88.0 Allergy status to penicillin; Z88.1 Allergy status to other antibiotic agents; Z88.5 Allergy status to narcotic agent; Z88.6 Allergy status to analgesic agent; Z91.010 Allergy to peanuts; Z91.012 Allergy to eggs; Z79.899 Other long term (current) drug therapy; Z86.69 Personal history of other diseases of the nervous system and sense organs; X50.9XXA Other and unspecified overexertion or strenuous movements or postures, initial encounter; Y93.89 Activity, other specified
CPT/HCPCS: 72050; 99283; 96372; J2360

== ENCOUNTER → 2019-11-09 | Outpatient (CLI) | payer OTHER ==
--- NOTE | 2019-11-09 21:18 | MR ---
EXAMINATION TYPE: MR cervical spine wo con DATE OF EXAM: 11/09/2019 COMPARISON: X-ray 08/19/2019 HISTORY: Pain and numbness in freddy upper extremities TECHNIQUE: Multiplanar, multisequence images of the cervical spine were acquired. C2-C3: No evidence for degenerative disc disease. No disc bulge/herniation or protrusion. No Canal stenosis. Foramina are patent bilaterally. C3-C4: No evidence for degenerative disc disease. No disc bulge/herniation or protrusion. No Canal stenosis. Foramina are patent bilaterally. C4-C5: Bilateral mild uncovertebral joint hypertrophy with central disc bulging but no canal stenosis . Mild facet arthropathy in the left. Neural foramina patent. C5-C6: Degenerative disc disease with central small disc herniation abutting the anterior margin the spinal cord. Neural foramina appear to be patent. C6-C7: Degenerative disc disease but no disc herniation or canal stenosis. Very mild central disc bul ging. No foraminal encroachment. C7-T1: No evidence for degenerative disc disease. No disc bulge/herniation or protrusion. No Canal stenosis. Foramina are patent bilaterally. Cervical segments are intact. There is normal alignment. Cervical spinal cord is of normal signal. Craniovertebral junction relationships are within normal limits. Loss of the normal cervical lordos is. IMPRESSION: 1. Loss of the normal cervical lordosis with small focal central disc herniation C5-C6 which abuts th e anterior margin of the spinal cord. 2. Degenerative disc disease and uncovertebral joint particularly C4-5 and C6-C7 with mild central di sc bulging but no canal stenosis or foraminal encroachment. 3. On the sagittal images suspect a disc protrusion at T2-T3 and T4-T5 which are only partially inclu ded on the exam. Recommend correlation with thoracic spine MRI.
== END | disposition home or self-care (01) ==
LOC: RADMRIMAIN 19:53
PROVIDERS: ATTEND Anesthesiology
DX: M50.222 Other cervical disc displacement at C5-C6 level (principal); M50.321 Other cervical disc degeneration at C4-C5 level; R90.89 Other abnormal findings on diagnostic imaging of central nervous system
CPT/HCPCS: 72141

== ENCOUNTER → 2020-05-09 | Outpatient (CLI) | payer OTHER ==
--- NOTE | 2020-05-09 15:49 | US ---
EXAMINATION TYPE: US thyroid st tissue head/neck DATE OF EXAM: 05/09/2020 COMPARISON: NONE CLINICAL HISTORY: E079 DISORDER OF THYROID. Patient stated has low TSH GLAND SIZE: Right Lobe: 5.6 x 1.8 x 1.8 cm Overall Parenchyma: mildly heterogeneous Left Lobe: 4.8 x 1.5 x 1.5 cm Overall Parenchyma: mildly heterogeneous Isthmus Thickness: 0.5 cm NODULES RIGHT: # of nodules measured on right: 0 LEFT: # of nodules measured on left: 0 ISTHMUS: # of nodules measured in the isthmus: 1 1. 0.4 X 0.5 x 0.3 cm hypoechoic cystic nodule at the upper pole with well-defined margins. This n odule is wider than tall and shows no intranodular vascularity. Bilateral neck scanned: no evidence of lymphadenopathy. IMPRESSION: Thyroid glandular heterogeneity is nonspecific.
== END | disposition home or self-care (01) ==
LOC: RADUSWWP 15:20
PROVIDERS: ATTEND Family Medicine
DX: E07.89 Other specified disorders of thyroid (principal)
CPT/HCPCS: 76536

== ENCOUNTER → 2020-06-02 | Outpatient (CLI) | payer OTHER | END | disposition home or self-care (01) | LOC: LABWHC1 09:21 | PROVIDERS: ATTEND Internal Medicine Endocrinology, Diabetes & Metabolism | DX: E04.1 Nontoxic single thyroid nodule (principal); E05.90 Thyrotoxicosis, unspecified without thyrotoxic crisis or storm | CPT/HCPCS: 36415; 84439; 84443; 84445; 84480 ==

== ENCOUNTER → 2020-06-18 | Outpatient (CLI) | payer OTHER ==
--- NOTE | 2020-06-19 10:06 | NM ---
EXAMINATION TYPE: NM thyroid image w uptake DATE OF EXAM: 06/19/2020 COMPARISON: NONE HISTORY: Hyperthyroidism TECHNIQUE: Thyroid iodine uptake is calculated and images performed after the oral administration of 301 uCi 1-123 Capsule. FINDINGS: There is normal distribution of activity throughout the gland. The 4 hour iodine uptake is calculated at 20.9% (normal range 8-14%). The 24-hour iodine uptake is calculated at 51.6% (normal r otoniel 15-35%). IMPRESSION: 1. Correlate for hyperthyroidism
== END | disposition home or self-care (01) ==
LOC: RADNMMAIN 09:19
PROVIDERS: ATTEND Internal Medicine Endocrinology, Diabetes & Metabolism
DX: E05.90 Thyrotoxicosis, unspecified without thyrotoxic crisis or storm (principal)
CPT/HCPCS: 78014; A9516

== ENCOUNTER → 2020-08-01 | Outpatient (CLI) | payer OTHER ==
[2020-08-01 19:18] LABS: T4, Free (Free Thyroxine) 0.9 ng/dL (0.80-1.80)
== END | disposition home or self-care (01) ==
LOC: LABWHC1 13:26
PROVIDERS: ATTEND Internal Medicine Endocrinology, Diabetes & Metabolism
DX: E05.90 Thyrotoxicosis, unspecified without thyrotoxic crisis or storm (principal)
CPT/HCPCS: 36415; 84439; 84443; 84480

== ENCOUNTER → 2021-07-04 | Outpatient (CLI) | payer MEDICARE, OTHER ==
--- NOTE | 2021-07-04 19:14 | MR ---
EXAMINATION TYPE: MR lumbar spine wo con DATE OF EXAM: 07/04/2021 COMPARISON: 12/01/2013 HISTORY: Chronic low back pain, with right sided sciatica Multiplanar multiecho imaging of the lumbar spine without contrast. Lumbar vertebra have normal alignment. There is rudimentary disc at S1-S2. There is narrowing of L5-S 1 disc space with posterior central disc herniation. There is developmentally adequate spinal canal a nd no significant spinal stenosis. Lumbar nerve roots appear normal. There is bilateral narrowing of the neural foramina at L5-S1 due to disc space narrowing and disc bulging. There is no evidence of fo shady bone destruction. There is no compression fracture. There is no lumbar paraspinal mass. Sacroilia c joints are partly seen and appear normal. Facet joints are intact. IMPRESSION: There is small posterior L5-S1 disc herniation which appears new compared to old exam. No spinal sten osis. There is L5-S1 neural foraminal narrowing bilaterally which is new compared to old exam.
== END | disposition home or self-care (01) ==
LOC: RADMRIMAIN 12:17
PROVIDERS: ATTEND Anesthesiology Pain Medicine
DX: M51.17 Intervertebral disc disorders with radiculopathy, lumbosacral region (principal); M99.73 Connective tissue and disc stenosis of intervertebral foramina of lumbar region
CPT/HCPCS: 72148

== ENCOUNTER → 2021-08-13 | Outpatient (CLI) | payer OTHER, MEDICARE ==
[2021-08-13 13:33] VITALS: BP 112/69; PULSE 71; TEMP 98.3; BMI 47.7
[2021-08-13 14:56] LABS: HCT 42.6 % (34.0-46.0); HGB 14.9 gm/dL (11.4-16.0); MCH 29.6 pg (25.0-35.0); MCV 84.6 fL (80.0-100.0); Platelet Count 271 k/uL (150-450); RBC 5.04 m/uL (3.80-5.40); RDW 14.1 % (11.5-15.5); WBC 9.8 k/uL (3.8-10.6)
--- NOTE | 2021-08-13 15:52 | P.HPBAR ---
Bariatric H&P - History & Physicial H&P Date: 08/13/21 History & Physicial: Visit/CC: initial clinic visit Patient initial contact: Initial weight: Initial weight in pounds: Height: 5 ft 4 in Initial BMI: Last weight: Current weight: 126.099 kg Current weight in pounds: 278.00 Current BMI: 47.7 [place] body weight (based on NIH guidelines): 54.431 kg Excess body weight loss: The patient is a 36 year-old F who presents for Bariatric Assessment. She presents interested in sleeve gastrectomy. BMI 47. Patient has a history of GERD, fibromyalgia, chronic back pain, PCO as, infertility issues, hypertension, sleep apnea, asthma. Patient does smoke one half pack per day. Surgical history includes ovarian cyst, laparoscopic appendectomy, laparoscopic cholecystectomy, sinus surgery. Denies DVT or dysphagia. Patient interested in sleeve gastrectomy rather than gastric bypass because of the long-term side effects. Review of Systems The patient denies any acute changes in vision or hearing, no dysphagia or odynophagia, no chest pain or shortness of breath, no dysuria or hematuria, no headache, no runny nose, no rectal bleeding or melena, no unexplained weight loss Past Medical History Past Medical History: Asthma, Fibromyalgia, GERD/Reflux, Hypertension, Osteoarthritis (OA), Skin Disorder, Sleep Apnea/CPAP/BIPAP Additional Past Medical History / Comment(s): Migraines, kidney stones, back and neck pain, HAROON CTS,PCOS, varicose veins, hypersomnia, no cpap used, hx ulcer, g out, DERMATITIS HANDS. History of Any Multi-Drug Resistant Organisms: None Reported Past Surgical History: Appendectomy, Cholecystectomy Additional Past Surgical History / Comment(s): Cyst removed left ovary w/reconstruction, Sinus surgery, Rt ovarian cyst removed, oral surgery. ESWL - unsuccessful treatment left ureteral calculus 10/16/2018, cystoscopy w/double J catheter placement 01-28-19 Past Anesthesia/Blood Transfusion Reactions: Previous Problems w/ Anesthesia Additional Past Anesthesia/Blood Transfusion Reaction / Comm: bronchospasm with surgery at [facility] 04/2017, recent cystoscopy 01-28-19 w/no problem Past Psychological History: Anxiety, Depression Additional Psychological History / Comment(s): RECENT ANXIETY R/T MOTHER'S CA DIAGNOSIS. VERY ANXIOUS PRIOR TO SURGERY. Smoking Status: Current some day smoker Past Alcohol Use History: None Reported Additional Past Alcohol Use History / Comment(s): has smoked since age 26, smokes 1/2 PPD Past Drug Use History: None Reported - Past Family History Mother Family Medical History: Cancer Surgical - Exam Vital Signs Temp Pulse BP 98.3 F 71 112/69 08/13/21 13:18 08/13/21 13:18 08/13/21 13:18 Physical exam: General: Well-developed, well-nourished HEENT: Normocephalic, sclerae nonicteric Abdomen: Nontender, nondistended Extremities: No edema Neuro: Alert and oriented Results - Labs 08/13/21 14:07 Bariatric Assessment & Plan (1) Morbid obesity with BMI of 45.0-49.9, adult Narrative/Plan: 36-year-old female with morbid obesity. Patient is interested in sleeve gastrectomy. Both surgical and nonsurgical options reviewed. The risks and benefits of sleeve gastrectomy and gastric bypass reviewed. Overall patient is a fairly good candidate for weight loss surgery. She does have an increased risk of postoperative reflux with gastric sleeve. Despite that however patient on interested in gastric bypass. She will continue consider. In the meanwhile will tentatively plan upper endoscopy to evaluate gastric anatomy and presence of hiatal hernia. Await completion of preoperative workup. Smoking cessation discussed with patient in detail. She will continue to work towards that. Status: Acute Bariatric Checklist Checklist: Plan: Checklist: EGD: 1. Hiatal hernia: 2. H. Pylori: HgbA1c: Vitamin D: Smoking: Current every day smoker Primary care physician referral: Psychiatry clearance: Cardiology clearance: Sleep study: Diet journal: VTE risk score: VTE risk level: Rehab needs at discharge:
[2021-08-14 05:55] LABS: Folate, Serum 7.9 ng/mL (4.40-31.00)
[2021-08-14 06:29] LABS: African American GFR (CKD) 110.7 (60.0-200.0); Albumin 4.3 g/dL (3.8-4.9); Albumin/Globulin Ratio 1.87 (1.60-3.17); Anion Gap 18.8 mmol/L (4.00-12.00); Blood Urea Nitrogen 14.4 mg/dL (9.0-27.0); Calcium 9.3 mg/dL (8.7-10.3); Carbon Dioxide 19.2 mmol/L (21.6-31.8); Globulin 2.3 g/dL (1.6-3.3); Non-African American GFR(CKD) 95.5 (60.0-200.0); Potassium 3.4 mmol/L (3.5-5.5); Total Bilirubin 0.3 mg/dL (0.30-1.20); Total Protein 6.6 g/dL (6.2-8.2)
== END ==
LOC: BARWHC3 12:53
PROVIDERS: ATTEND Surgery
DX: E66.01 Morbid (severe) obesity due to excess calories (principal); I10 Essential (primary) hypertension; F17.210 Nicotine dependence, cigarettes, uncomplicated; J45.909 Unspecified asthma, uncomplicated; M19.90 Unspecified osteoarthritis, unspecified site; F41.9 Anxiety disorder, unspecified; F32.9 Major depressive disorder, single episode, unspecified; Z68.42 Body mass index [BMI] 45.0-49.9, adult; Z88.1 Allergy status to other antibiotic agents; Z91.012 Allergy to eggs; Z88.6 Allergy status to analgesic agent; Z91.010 Allergy to peanuts; Z88.5 Allergy status to narcotic agent; Z88.0 Allergy status to penicillin
CPT/HCPCS: 80053; 82306; 82607; 82746; 83540; 84425; 85027; 99211

== ENCOUNTER → 2021-10-01 | Outpatient (CLI) | payer OTHER, MEDICARE ==
--- NOTE | 2021-10-01 15:42 | US ---
EXAMINATION TYPE: US transvaginal DATE OF EXAM: 10/01/2021 COMPARISON: US 2013 CLINICAL HISTORY: N91.2 Amenorrhea. Pelvic pain, 0, history of PCOS TECHNIQUE: Transvaginal only per ordering Date of LMP: 10 months ago EXAM MEASUREMENTS: Uterus: 6.0 x 3.2 x 3.3 cm Endometrial Stripe: 1.0 cm Right Ovary: 4.0 x 3.2 x 3.3 cm Left Ovary: 4.3 x 2.5 x 2.2 cm Difficult and limited study due to patient body habitus 1. Uterus: anteverted 2. Endometrium: appears wnl 3. Right Ovary: wnl 4. Left Ovary: wnl 5. Bilateral Adnexa: wnl 6. Posterior cul-de-sac: wnl IMPRESSION: No distinct abnormality appreciated at this time.
== END | disposition home or self-care (01) ==
LOC: RADUSWWP 14:44
PROVIDERS: ATTEND Family Medicine
DX: N91.2 Amenorrhea, unspecified (principal); R10.2 Pelvic and perineal pain; Z87.42 Personal history of other diseases of the female genital tract
CPT/HCPCS: 76830

== ENCOUNTER 2021-12-22 10:46 | Day surgery (SDC) | payer OTHER, MEDICARE ==
[2021-12-17 12:34] VITALS: BMI 47.9
[~2021-12-22 10:46] MED LIST changes: -DEXAMETHASONE SOD PHOSPHATE 10 MG/ML 1 ML VIAL IV ONE; -GENTAMICIN 120 MG in SODIUM CHLORIDE 0.9% 100 ML IVPB ONE; -HYDROmorphone 0.5 MG/0.5 ML SYRINGE IVP PRN; +LIDOCAINE 1% (10MG/ML) FOR IV START INTRADERMA PRN; -LIDOCAINE 1% 20 ML VIAL (10MG/ML) FOR IV START INTRADERMA PRN; -MIDAZOLAM (PF) 2 MG/2 ML VIAL IV PRN; -ONDANSETRON 4 MG/2 ML VIAL IVP ONE; -fentaNYL (PF) 50 MCG/ML 2 ML AMP IV PRN
[2021-12-22 11:37] VITALS: TEMP 97.1
[2021-12-22] MEDS ORDERED: LIDOCAINE 1% INJ 10MG/ML (20 ML MDV) ONE (12:08)
[2021-12-22] MEDS ORDERED: PROPOFOL 10 MG/ML 20 ML VIAL IV ONE (12:08)
--- NOTE | 2021-12-22 12:11 | P.GSHP ---
History of Present Illness H&P Date: 12/22/21 Chief Complaint: GERD, presurgical Patient today for upper endoscopy as part of workup for sleeve gastrectomy. Patient with history of mild reflux as well. She had an EGD many years ago. Patient is still smoking. Says she is down to 2 cigarettes every few days. Past Medical History Past Medical History: Asthma, Fibromyalgia, GERD/Reflux, Hypertension, Osteoarthritis (OA), Skin Disorder, Sleep Apnea/CPAP/BIPAP Additional Past Medical History / Comment(s): Migraines, kidney stones, back and neck pain, HAROON CTS,PCOS, varicose veins, hypersomnia, no cpap used, hx ulcer, gout, DERMATITIS HANDS. HERNIATED DISCS, History of Any Multi-Drug Resistant Organisms: None Reported Past Surgical History: Appendectomy, Cholecystectomy Additional Past Surgical History / Comment(s): Cyst removed left ovary w/reconstruction, Sinus surgery, Rt ovarian cyst removed, oral surgery. ESWL - unsuccessful treatment left ureteral calculus 10/16/2018, cystoscopy w/double J catheter placement 01-28-19, WISDOM TEETH REMOVED UNDER ANESTHESIA, EGD, Past Anesthesia/Blood Transfusion Reactions: Previous Problems w/ Anesthesia Additional Past Anesthesia/Blood Transfusion Reaction / Comment(s): bronchospasm with surgery at [facility] 04/2017, recent cystoscopy 01-28-19 w/no problem Smoking Status: Current every day smoker - Past Family History Mother Family Medical History: Cancer Medications and Allergies Home Medications Medication Instructions Recorded Confirmed Type Sertraline [Zoloft] 100 mg PO DAILY 10/13/18 12/22/21 History Labetalol HCl 200 mg PO DAILY 01/28/19 12/22/21 History Gabapentin [Neurontin] 900 mg PO TID 06/02/19 12/22/21 History SUMAtriptan SUCCINATE [Imitrex] 100 mg PO DAILY PRN 06/02/19 12/22/21 History Omeprazole 20 mg PO DAILY 08/28/19 12/22/21 History ARIPiprazole [Abilify] 5 mg PO HS 08/17/21 12/22/21 History Cyclobenzaprine [Flexeril] 10 mg PO TID 08/17/21 12/22/21 History Sertraline [Zoloft] 50 mg PO DAILY 08/17/21 12/22/21 History hydroCHLOROthiazide [Hydrodiuril] 25 mg PO DAILY 08/17/21 12/22/21 History Buprenorphine [Butrans 20 MCG/HOUR] 1 each TRANSDERM MO 12/17/21 12/22/21 History oxyCODONE-APAP 5-325MG [Percocet 1 tab PO QID PRN 12/17/21 12/22/21 History 5-325 mg] Allergies Allergy/AdvReac Type Severity Reaction Status Date / Time adhesive Allergy Rash/Hives Verified 12/22/21 11:22 ciprofloxacin [From Cipro] Allergy Rash/Hives Verified 12/22/21 11:22 ciprofloxacin HCl Allergy Rash/Hives Verified 12/22/21 11:22 [From Cipro] egg Allergy Unknown Verified 12/22/21 11:22 ibuprofen [From Motrin] Allergy Rash/Hives Verified 12/22/21 11:22 ketorolac tromethamine Allergy Rash/Hives Verified 12/22/21 11:22 [From Toradol] morphine Allergy Rash/Hives Verified 12/22/21 11:22 peanut Allergy Unknown Verified 12/22/21 11:22 Penicillins Allergy Rash/Hives Verified 12/22/21 11:22 Surgical - Exam Vital Signs Temp Pulse Resp BP Pulse Ox 97.1 F L 83 16 146/94 100 12/22/21 11:29 12/22/21 11:29 12/22/21 11:29 12/22/21 11:29 12/22/21 11:29 Physical exam: General: Well-developed, well-nourished HEENT: Normocephalic, sclerae nonicteric Abdomen: Nontender, nondistended Extremities: No edema Neuro: Alert and oriented Assessment and Plan (1) GERD (gastroesophageal reflux disease) Narrative/Plan: Will proceed with upper endoscopy at this time Current Visit: Yes Status: Acute Code(s): K21.9 - GASTRO-ESOPHAGEAL REFLUX DISEASE WITHOUT ESOPHAGITIS SNOMED Code(s): 527239187
--- NOTE | 2021-12-22 12:20 | P.PCN ---
Date of Procedure: 12/22/21 Procedure(s) Performed: Preoperative Dx: GERD, presurgical Postoperative Dx: Gastritis, small hiatal hernia, mild distal esophagitis Procedure: EGD with Bx Anesthesia: Sedation Endoscopist: Dr. Cruz Specimens: Antrum, distal esophagus Endoscopic Procedure: The patient was on the endoscopy table in the left decubitus position. The Olympus gastroscope was inserted into the oropharynx and passed under direct visualization to the region of the third portion of the duodenum. From that point the scope was slowly withdrawn inspecting all surfaces carefully. There were no neoplastic inflammatory or polypoid lesions throughout the duodenum. The pylorus was widely patent. The stomach was carefully inspected. There was mild gastritis present. A biopsy of the antrum took place to rule out H. pylori. Retroflexion revealed a small sliding hiatal hernia. At the GE junction was 0 a single small linear erosion present. This was biopsied. The remainder the esophagus appear normal. The patient was then taken to the recovery room in stable condition per anesthesia guidelines. Recommendations: Await biopsy results. Follow-up bariatric center.
[2021-12-22 12:45] VITALS: BP 115/66; PULSE 67; RESP 18
== END 2021-12-22 12:48 | disposition home or self-care (01) ==
LOC: ORWHC2ENDO 10:46
PROVIDERS: ATTEND Surgery
DX: K22.70 Barrett's esophagus without dysplasia (principal); K29.50 Unspecified chronic gastritis without bleeding; K21.9 Gastro-esophageal reflux disease without esophagitis; K44.9 Diaphragmatic hernia without obstruction or gangrene; J45.909 Unspecified asthma, uncomplicated; M79.7 Fibromyalgia; I10 Essential (primary) hypertension; M19.90 Unspecified osteoarthritis, unspecified site; G47.33 Obstructive sleep apnea (adult) (pediatric); L30.9 Dermatitis, unspecified; G43.909 Migraine, unspecified, not intractable, without status migrainosus; F17.200 Nicotine dependence, unspecified, uncomplicated; Z87.442 Personal history of urinary calculi; F41.9 Anxiety disorder, unspecified; F32.A Depression, unspecified; M54.9 Dorsalgia, unspecified; M54.2 Cervicalgia; E28.2 Polycystic ovarian syndrome; I83.90 Asymptomatic varicose veins of unspecified lower extremity; M10.9 Gout, unspecified; Z90.49 Acquired absence of other specified parts of digestive tract; Z98.890 Other specified postprocedural states; Z80.9 Family history of malignant neoplasm, unspecified; Z79.899 Other long term (current) drug therapy; Z88.6 Allergy status to analgesic agent; Z88.1 Allergy status to other antibiotic agents; Z91.010 Allergy to peanuts; Z91.09 Other allergy status, other than to drugs and biological substances; Z91.012 Allergy to eggs
CPT/HCPCS: 81025; 88305; 43239; J2001; J2704

== ENCOUNTER → 2022-01-11 | Outpatient (CLI) | payer OTHER, MEDICARE ==
[2022-01-11 11:14] VITALS: BMI 48.4
== END ==
LOC: BARWHC3 08:38
PROVIDERS: ATTEND Surgery
DX: E66.01 Morbid (severe) obesity due to excess calories (principal); Z71.3 Dietary counseling and surveillance; F17.200 Nicotine dependence, unspecified, uncomplicated; Z91.048 Other nonmedicinal substance allergy status; Z88.1 Allergy status to other antibiotic agents; Z91.012 Allergy to eggs; Z88.6 Allergy status to analgesic agent; Z88.0 Allergy status to penicillin; Z91.010 Allergy to peanuts; Z88.5 Allergy status to narcotic agent; Z68.42 Body mass index [BMI] 45.0-49.9, adult
CPT/HCPCS: 97804

== ENCOUNTER → 2022-02-23 | Outpatient (CLI) | payer OTHER, MEDICARE ==
[2022-02-23 14:49] VITALS: BP 137/83; PULSE 90; BMI 49.2
--- NOTE | 2022-02-23 17:34 | P.BASOAP ---
Subjective Progress Note Date: 02/23/22 Principal diagnosis: Morbid obesity Patient returns for reevaluation. Last seen in December. Had EGD showing gastritis, small hiatal hernia, mild distal esophagitis. Patient is taking Prilosec daily. States her reflux symptoms are usually controlled with those medications. Patient states she still has no interest in considering gastric bypass. No other changes to her prior history and physical. Objective - Vital Signs Vital signs: Vital Signs Temp Pulse 90 02/23/22 14:39 Resp BP 137/83 02/23/22 14:39 Pulse Ox Intake & Output 02/22/22 02/23/22 02/23/22 18:59 06:59 18:59 Weight 130.181 kg - Exam Abdomen: Soft, nontender, nondistended Assessment/Plan (1) Morbid obesity with BMI of 45.0-49.9, adult Narrative/Plan: 36-year-old female with morbid obesity and associated coronary disease. Patient has had some recent weight gain. Importance of slow steady weight loss reviewed. She will work on her weight over the next several weeks and come back in for a recheck. Patient remains interested in sleeve gastrectomy. Increased risk of post sleeve reflux reviewed. Possible need for later conversion to gastric bypass reviewed. Patient states she understands this risk and would like to proceed. Surgical consent form discussed in detail. All questions answered. Plan: Date: 02/23/22 Initial Weight: Initial BMI: Current Weight: 130.181 kg Current BMI: 49.2 Type of Surgery: Total Volume in Band: Previous Volume: Volume Removed: Volume Added: Band Size:
== END ==
LOC: BARWHC3 13:47
PROVIDERS: ATTEND Surgery
DX: E66.01 Morbid (severe) obesity due to excess calories (principal); Z68.42 Body mass index [BMI] 45.0-49.9, adult; I25.10 Atherosclerotic heart disease of native coronary artery without angina pectoris; Z91.048 Other nonmedicinal substance allergy status; Z88.1 Allergy status to other antibiotic agents; Z91.010 Allergy to peanuts; Z91.012 Allergy to eggs; Z88.0 Allergy status to penicillin; Z88.6 Allergy status to analgesic agent; Z88.5 Allergy status to narcotic agent; F17.200 Nicotine dependence, unspecified, uncomplicated
CPT/HCPCS: 99211

== ENCOUNTER → 2022-05-19 | Outpatient (CLI) | payer OTHER, MEDICARE | END | disposition home or self-care (01) | LOC: LABWHC1 09:45 | PROVIDERS: ATTEND Surgery | DX: Z71.51 Drug abuse counseling and surveillance of drug abuser (principal) | CPT/HCPCS: 80307 ==

== ENCOUNTER → 2022-07-14 | Outpatient (CLI) | payer OTHER, MEDICARE ==
[2022-07-14 10:40] LABS: Basophils # (A) 0.04 X 10*3/uL (0.00-0.10); Basophils % (A) 0.4 %; Eosinophils # (A) 0.18 X 10*3/uL (0.04-0.35); Eosinophils % (A) 1.9 %; HCT 49.4 % (37.2-46.3); HGB 16.6 g/dL (12.0-15.0); Immature Grans, Automated 0.3 %; Lymphocytes # (A) 2.29 X 10*3/uL (0.90-5.00); Lymphocytes % (A) 24.7 %; MCH 27.9 pg (27.0-32.0); MCHC 33.6 g/dL (32.0-37.0); Mean Platelet Volume 10.8 fL (9.5-12.2); Monocytes # (A) 0.55 X 10*3/uL (0.20-1.00); Monocytes % (A) 5.9 %; NRBC Per 100 WBC 0 /100 WBCS (0.0-0.0); Neutrophils % (A) 66.8 %; Platelet Count 270 X 10*3/uL (140-440); RBC 5.95 X 10*6/uL (4.10-5.20); RDW 14.3 % (11.5-14.5); WBC 9.29 X 10*3/uL (4.50-10.00)
[2022-07-14 10:55] LABS: African American GFR (CKD) 95.3 (60.0-200.0); Albumin 4.6 g/dL (3.8-4.9); Albumin/Globulin Ratio 1.77 (1.60-3.17); Anion Gap 12.5 mmol/L (10.00-18.00); BUN/Creat Ratio 17.22 Ratio (12.00-20.00); Blood Urea Nitrogen 15.5 mg/dL (9.0-27.0); Calcium 9.7 mg/dL (8.7-10.3); Carbon Dioxide 29.5 mmol/L (20.0-27.5); Globulin 2.6 g/dL (1.6-3.3); Non-African American GFR(CKD) 82.3 (60.0-200.0); Potassium 3.3 mmol/L (3.5-5.5); Total Bilirubin 0.5 mg/dL (0.30-1.20); Total Protein 7.2 g/dL (6.2-8.2)
== END | disposition home or self-care (01) ==
LOC: LABPAT 06:50
PROVIDERS: ATTEND Surgery
DX: Z01.818 Encounter for other preprocedural examination (principal)
CPT/HCPCS: 80053; 85025; 93005

== ENCOUNTER 2022-07-19 11:37 | Inpatient (IN) | payer OTHER, MEDICARE ==
[~2022-07-19 11:37] MED LIST changes: +DEXAMETHASONE SOD PHOSPHATE 4 MG/ML 1 ML VIAL IV ONE; +ENOXAPARIN 40 MG/0.4 ML SYRINGE SQ PRN; +HYDROmorphone 0.5 MG/0.5 ML SYRINGE IVP PRN; -LACTATED RINGERS 1,000 ML IV SCH; +MIDAZOLAM 2 MG/2 ML VIAL IV PRN; +ONDANSETRON 4 MG/2 ML VIAL IVP ONE; +ceFAZolin 3 GM in SODIUM CHLORIDE 0.9% 100 ML IVPB PRN
[2022-07-19] MEDS: LACTATED RINGERS 1,000 ML IV SCH (12:18)
--- NOTE | 2022-07-19 13:42 | P.GSHP ---
History of Present Illness H&P Date: 07/19/22 Chief Complaint: Morbid obesity 37-year-old female here today for elective sleeve gastrectomy. Patient initially seen in July of last year. Patient suffers from GERD fibromyalgia chronic back pain PCO S infertility issues hypertension sleep apnea and asthma. Patient was smoking when we first encountered her but has stopped since then. Recent EGD showed mild gastritis and a small hiatal hernia. No other changes to her prior history and physical. Past Medical History Past Medical History: Asthma, Fibromyalgia, GERD/Reflux, Hypertension, Osteoarthritis (OA), Skin Disorder, Sleep Apnea/CPAP/BIPAP Additional Past Medical History / Comment(s): Migraines, kidney stones, back and neck pain, PCOS, varicose veins, no cpap used, hx ulcer, gout, dermatitis on hands History of Any Multi-Drug Resistant Organisms: None Reported Past Surgical History: Appendectomy, Cholecystectomy Additional Past Surgical History / Comment(s): Cyst removed left ovary w/reconstruction, Sinus surgery, Rt ovarian cyst removed, oral surgery. Lithot ripsy, ESWL -unsuccessful treatment left ureteral calculus, cystoscopy w/double J catheter placement Past Anesthesia/Blood Transfusion Reactions: Previous Problems w/ Anesthesia Additional Past Anesthesia/Blood Transfusion Reaction / Comment(s): bronchospasm with surgery at [facility] 04/2017 Past Psychological History: Anxiety, Depression Smoking Status: Former smoker Past Alcohol Use History: None Reported Additional Past Alcohol Use History / Comment(s): quit smoking December 2021 Past Drug Use History: Marijuana Additional Drug Use History / Comment(s): MARIJUANA ON OCCASION FOR SEVERE PAIN-INSTRUCTED TO REFRAIN FROM USE FOR AT LEAST 24 HOURS PRIOR TO PROCEDURE - Past Family History Mother Family Medical History: Cancer, Coronary Artery Disease (CAD) Medications and Allergies Home Medications Medication Instructions Recorded Confirmed Type Labetalol HCl 200 mg PO DAILY 01/28/19 07/19/22 History Gabapentin [Neurontin] 900 mg PO TID 06/02/19 07/19/22 History SUMAtriptan succinate [Imitrex] 100 mg PO DAILY PRN 06/02/19 07/19/22 History Omeprazole 20 mg PO HS 08/28/19 07/19/22 History ARIPiprazole [Abilify] 5 mg PO HS 08/17/21 07/19/22 History Cyclobenzaprine [Flexeril] 10 mg PO TID 08/17/21 07/19/22 History Sertraline [Zoloft] 150 mg PO HS 08/17/21 07/19/22 History hydroCHLOROthiazide [Hydrodiuril] 25 mg PO DAILY 08/17/21 07/19/22 History oxyCODONE-APAP 5-325MG [Percocet 1 tab PO QID PRN 12/17/21 07/19/22 History 5-325 mg] Allergies Allergy/AdvReac Type Severity Reaction Status Date / Time adhesive Allergy Rash/Hives Verified 07/19/22 12:31 ciprofloxacin [From Cipro] Allergy Rash/Hives Verified 07/19/22 12:31 ciprofloxacin HCl Allergy Rash/Hives Verified 07/19/22 12:31 [From Cipro] egg Allergy Unknown Verified 07/19/22 12:31 ibuprofen [From Motrin] Allergy Rash/Hives Verified 07/19/22 12:31 ketorolac tromethamine Allergy Rash/Hives Verified 07/19/22 12:31 [From Toradol] morphine Allergy Rash/Hives Verified 07/19/22 12:31 peanut Allergy Unknown Verified 07/19/22 12:31 Penicillins Allergy Rash/Hives Verified 07/19/22 12:31 Surgical - Exam Vital Signs Temp Pulse Resp BP Pulse Ox 97.7 F 91 16 144/91 96 07/19/22 12:06 07/19/22 12:06 07/19/22 12:06 07/19/22 12:06 07/19/22 12:06 Physical exam: General: Well-developed, well-nourished HEENT: Normocephalic, sclerae nonicteric Abdomen: Nontender, nondistended Extremities: No edema Neuro: Alert and oriented Results - Labs 07/19/22 12:15 Abnormal Lab Results - Last 24 Hours (Table) 07/19/22 Range/Units 12:15 Potassium 3.3 L (3.5-5.1) mmol/L Diabetes panel 07/19/22 Range/Units 12:15 Potassium 3.3 L (3.5-5.1) mmol/L Pituitary panel 07/19/22 Range/Units 12:15 Potassium 3.3 L (3.5-5.1) mmol/L Adrenal panel 07/19/22 Range/Units 12:15 Potassium 3.3 L (3.5-5.1) mmol/L Assessment and Plan (1) Morbid obesity with BMI of 45.0-49.9, adult Narrative/Plan: 37-year-old female with morbid obesity and associated comorbidities. Patient remains interested in sleeve gastrectomy. We'll proceed with laparoscopic da Shun-assisted sleeve gastrectomy, repair hiatal hernia, possible open at this time. The risks of bleeding, infection, stenosis, stricture, leak, abscess, fistula formation, peritonitis, poor weight loss, reflux, vomiting, conversion to an open procedure, aborting sleeve gastrectomy, [place], PE, DVT, and were discussed. The patient understands and wishes to proceed. Current Visit: No Status: Acute Code(s): E66.01 - MORBID (SEVERE) OBESITY DUE TO EXCESS CALORIES; Z68.42 - BODY MASS INDEX [BMI] 45.0-49.9, ADULT SNOMED Code(s): 924112331
[2022-07-19] MEDS ORDERED: LIDOCAINE 2% INJ 20 MG/ML (2 ML VIAL) ONE (13:53)
[2022-07-19] MEDS ORDERED: KETAMINE 10 MG/ML 20 ML VIAL ONE (13:53)
[2022-07-19] MEDS ORDERED: SUCCINYLCHOLINE CHLORIDE 200 MG/10 ML VIAL IV ONE (13:53)
[2022-07-19] MEDS ORDERED: MIDAZOLAM 2 MG/2 ML VIAL ONE (13:53)
[2022-07-19] MEDS ORDERED: ROCURONIUM 10 MG/ML (5 ML VIAL) IV ONE (13:53)
[2022-07-19] MEDS ORDERED: PROPOFOL 10 MG/ML 20 ML VIAL IV ONE (13:53)
[2022-07-19] MEDS ORDERED: ALBUTEROL HFA INHALER INHALATION ONE (13:53)
[2022-07-19] MEDS ORDERED: NEOSTIGMINE 1 MG/ML 10 ML VIAL ONE (13:53)
[2022-07-19] MEDS ORDERED: GLYCOPYRROLATE 0.2 MG/ML 2 ML VIAL ONE (13:53)
[2022-07-19] MEDS ORDERED: METOPROLOL TARTRATE 5 MG/5 ML VIAL IVP ONE (13:53)
[2022-07-19] MEDS ORDERED: fentaNYL (PF) 50 MCG/ML 2 ML AMP ONE (13:53)
[2022-07-19] MEDS ORDERED: BUPIVACAIN-EPI 0.25%-1:200,000 30 ML VIAL SQ ONE (14:24)
[2022-07-19] MEDS ORDERED: LACTATED RINGERS 1,000 ML IV ONE (15:08)
[2022-07-19] MEDS ORDERED: diphenhydrAMINE 50 MG/ML 1 ML VIAL IVP PRN (16:58)
[2022-07-19] MEDS ORDERED: HYOSCYAMINE ORAL DROPS 1.875 MG/15 ML BOTTLE PO PRN (16:58)
[2022-07-19] MEDS ORDERED: NALOXONE 0.4 MG/ML 1 ML VIAL IV PRN (16:58)
[2022-07-19] MEDS ORDERED: ONDANSETRON 4 MG/2 ML VIAL IVP PRN (16:58)
[2022-07-19] MEDS ORDERED: HYDROmorphone 1 MG/ML 1 ML SYRINGE IVP PRN (16:58)
--- NOTE | 2022-07-19 17:08 | P.OP ---
Date of Procedure: 07/19/22 Procedure(s) Performed: PREOPERATIVE DIAGNOSIS: Morbid obesity, hypertension, asthma, GERD, sleep apnea, asthma, hiatal hernia POSTOPERATIVE DIAGNOSIS: Same PROCEDURE: Da Shun assisted laparoscopic sleeve gastrectomy with hiatal hernia repair SURGEON: Anthony EBL: 20 mL ANESTHESIA: General COMPLICATIONS: None OPERATIVE PROCEDURE: Patient was placed in the operating table in the supine position. The patient was then placed under general anesthesia at that time. The abdomen was prepped and draped in the usual sterile fashion. A 5 mm optical trocar was placed in the left upper quadrant 20 cm inferior to the xiphoid process. Insufflation took place up to 15 mmHg. No adhesions were seen. A 5 mm subxiphoid incision was made and the medium Christiano retractor was used to elevate the left lobe of liver anteriorly. This was held in place using the fixed arm retractor. An additional 12 mm trocar was placed in the supraumbilical location and 2 additional 8 mm trochars were placed in the left upper quadrant one medial and one lateral to the initially placed optical trocar. All of these trochars were placed along the same plane. The initial 5 was then switched to an 8 mm trocar. The robot was then docked appropriately. The 8 mm camera was placed in arm 3 down viewing. A fenestrated bipolar was placed in arm 4, arm 2 had the vessel sealer, arm 1 had the small grasper retractor. The hiatus was inspected and there was confirmation of a moderate- sized hiatal hernia. We started first with the mobilization of the greater curvature. At that point I moved to the distal aspect of the greater curvature the stomach. The short gastric vasculature were divided using the vessel sealer. This dissection took place distally until we were 4 cm from the pylorus. The posterior adhesions were divided as well. The dissection then took place proximally along the stomach until the posterior short gastrics were divided and the fundus of the stomach was fully mobilized. From a retrogastric review we were able dissect the hiatal hernia along the left adali. The hip roll gastric ligament was then divided and the right side of the hiatal hernia was fully mobilized by dividing the phrenoesophageal ligament. Once we had adequate mobilization anteriorly and laterally are retrogastric dissection took place without difficulty. The stomach was fully reduced by dissecting and mobilizing the distal aspect of the hiatus. We left the closure of the hiatus to later. The 40-Arabic bougie dilator was advanced into the stomach and advanced all the way to the prepyloric location. The patient's stomach by palpation seemed to be of average thickness. No buttressing was utilized. The first firing of the stapler was a green load. The remaining staple loads were all blue in color. The stomach was then placed in the right upper quadrant after it was fully excised. The oral gastric tube was reinserted. I then reapproximated the adali posteriorly using a short running nonabsorbable 20V lock suture. No bleeding was seen. The stomach was insufflated with approximately 100 mL of methylene blue. No evidence of leak or obstruction was seen. Tisseel fibrin glue was then used along the length of the staple line. The robot was then undocked. The da Shun laparoscope was used and the stomach was removed from the 12 mm trocar site without difficulty. The fascia at the 12mm site was closed using [id number] 0 Vicryl sutures with the laparoscopic suture passer and David Silvia technique. The insufflation was evacuated. The skin at all 5 incisions were closed using 4-0 Monocryl sutures. Skin glue was then applied. DISPOSITION: Stable to recovery room
[2022-07-19] MEDS: ACETAMINOPHEN IV (For NPO) 1,000 MG in EMPTY BAG 1 BAG IVPB SCH (18:22)
[2022-07-19] MEDS: PANTOPRAZOLE 40 MG/10 ML VIAL IV SCH (18:25)
[2022-07-19] MEDS ORDERED: hydrALAZINE HCL 20 MG/ML 1 ML VIAL IVP PRN (19:46)
[2022-07-19] MEDS: HYDROmorphone 1 MG/ML 1 ML SYRINGE IVP PRN ×2 (20:20→22:55)
[2022-07-19] MEDS: SIMETHICONE 40 MG/0.6 ML DROPS 2,000 MG/30 ML BOTTLE PO PRN (20:21)
[2022-07-19] MEDS: ALBUTEROL NEBULIZED 2.5 MG/3 ML INHALATION SCH (22:02)
[2022-07-19] MEDS: 0.9% NACL WITH KCL 20 MEQ/L 1,000 ML IV SCH (23:30)
[2022-07-20] MEDS: ACETAMINOPHEN IV (For NPO) 1,000 MG in EMPTY BAG 1 BAG IVPB SCH ×4 (01:38→17:05)
[2022-07-20] MEDS: HYDROmorphone 1 MG/ML 1 ML SYRINGE IVP PRN ×7 (01:44→22:42)
[2022-07-20] MEDS: 0.9% NACL WITH KCL 20 MEQ/L 1,000 ML IV SCH ×3 (03:53→17:06)
[2022-07-20] MEDS: ENOXAPARIN 40 MG/0.4 ML SYRINGE SQ SCH ×2 (04:09→17:05)
[2022-07-20] MEDS: SIMETHICONE 40 MG/0.6 ML DROPS 2,000 MG/30 ML BOTTLE PO PRN ×2 (05:49→10:48)
[2022-07-20] MEDS: LACTATED RINGERS 1,000 ML IV SCH (07:25)
[2022-07-20] MEDS: ALBUTEROL NEBULIZED 2.5 MG/3 ML INHALATION SCH ×4 (08:54→19:05)
[2022-07-20 10:20] LABS: Basophils # (A) 0.02 X 10*3/uL (0.00-0.10); Basophils % (A) 0.2 %; Eosinophils # (A) 0 X 10*3/uL (0.04-0.35); Eosinophils % (A) 0 %; HCT 42.7 % (37.2-46.3); HGB 14.2 g/dL (12.0-15.0); Immature Grans, Automated 0.3 %; Lymphocytes # (A) 1.54 X 10*3/uL (0.90-5.00); Lymphocytes % (A) 12.2 %; MCH 28.1 pg (27.0-32.0); MCHC 33.3 g/dL (32.0-37.0); MCV 84.4 fL (80.0-97.0); Mean Platelet Volume 11.2 fL (9.5-12.2); Monocytes # (A) 0.91 X 10*3/uL (0.20-1.00); Monocytes % (A) 7.2 %; NRBC Per 100 WBC 0 /100 WBCS (0.0-0.0); Neutrophils # (A) 10.13 X 10*3/uL (1.80-7.70); Neutrophils % (A) 80.1 %; Platelet Count 207 X 10*3/uL (140-440); RBC 5.06 X 10*6/uL (4.10-5.20); RDW 14.1 % (11.5-14.5); WBC 12.64 X 10*3/uL (4.50-10.00)
--- NOTE | 2022-07-20 10:36 | P.CONS ---
History of Present Illness - Reason for Consult Consult date: 07/20/22 HTN Requesting physician: Nixon Cruz - Chief Complaint obesity - History of Present Illness Patient is a 37-year-old female history of asthma, fibromyalgia, hypertension, and GERD who presented for elective gastric sleeve. Patient seen and examined at bedside. She complains of some abdominal pain. She denies any chest pain, shortness of breath, nausea, vomiting. She is in her normal state of health prior to surgery. Pertinent positives and negatives as discussed in HPI, a complete review of systems was performed and all other systems are negative. Vital signs reviewed General: nontoxic, mild distress secondary to pain, appears at stated age Derm: warm, dry Head: atraumatic, normocephalic, symmetric Eyes: EOMI, no lid lag, anicteric sclera, pupils equal round reactive to light ENT: Nose and ears atraumatic, no thrush, no pharyngeal erythema Neck: No thyromegaly, no cervical lymphadenopathy, trachea midline, supple Mouth: no lip lesion, mucus membranes moist Cardiovascular: S1S2 reg, no murmur, positive posterior tibial pulse bilateral, no edema, capillary refill less than 2 seconds Lungs: Decreased breath sounds bilateral, no rhonchi, no rales, no wheeze, no accessory muscle use Abdominal: soft, + tender to palpation diffusely, no guarding, no appreciable organomegaly, normal bowel sounds Ext: no gross muscle atrophy, no contractures Neuro: CN II-XII grossly intact, no focal neuro deficits Psych: Alert, oriented, appropriate affect Assessment/Plan: 37 yo F s/p gastric sleeve Obesity wtih BMI 46.3 - s/p gastric sleeve - continued outpatient weight loss. HTN - BP currently controlled - resume home HCTZ and labetalol once able to have oral medications - continue prn hydralazine Asthma - no exacerbation - prn bronchidilators Fibromyalgia - pain control - resume home gabapentin and flexaril when okay for diet Thank you for allowing us to participate in the care of this pleasant patient. Do not hesitate to contact us with questions. Someone can be reached from the [facility] hospitalist group all hours of the day at [phone] or via [employer]. Past Medical History Past Medical History: Asthma, Fibromyalgia, GERD/Reflux, Hypertension, Osteoarthritis (OA), Skin Disorder, Sleep Apnea/CPAP/BIPAP Additional Past Medical History / Comment(s): Migraines, kidney stones, back and neck pain, PCOS, varicose veins, no cpap used, hx ulcer, gout, dermatitis on hands History of Any Multi-Drug Resistant Organisms: None Reported Past Surgical History: Appendectomy, Cholecystectomy Additional Past Surgical History / Comment(s): Cyst removed left ovary w/reconstruction, Sinus surgery, Rt ovarian cyst removed, oral surgery. Lithotripsy, ESWL -unsuccessful treatment left ureteral calculus, cystoscopy w/double J catheter placement, gastric sleeve Past Anesthesia/Blood Transfusion Reactions: Previous Problems w/ Anesthesia Additional Past Anesthesia/Blood Transfusion Reaction / Comm: bronchospasm with surgery at [facility] 04/2017 Past Psychological History: Anxiety, Depression Additional Psychological History / Comment(s): RECENT ANXIETY R/T MOTHER'S CA DIAGNOSIS. VERY ANXIOUS PRIOR TO SURGERY. Smoking Status: Former smoker Past Alcohol Use History: None Reported Additional Past Alcohol Use History / Comment(s): quit smoking December 2021 Past Drug Use History: Marijuana Additional Drug Use History / Comment(s): MARIJUANA ON OCCASION FOR SEVERE PAIN- INSTRUCTED TO REFRAIN FROM USE FOR AT LEAST 24 HOURS PRIOR TO PROCEDURE - Past Family History Mother Family Medical History: Cancer, Coronary Artery Disease (CAD) Medications and Allergies Home Medications Medication Instructions Recorded Confirmed Type Labetalol HCl 200 mg PO DAILY 01/28/19 07/19/22 History Gabapentin [Neurontin] 900 mg PO TID 06/02/19 07/19/22 History SUMAtriptan succinate [Imitrex] 100 mg PO DAILY PRN 06/02/19 07/19/22 History Omeprazole 20 mg PO HS 08/28/19 07/19/22 History ARIPiprazole [Abilify] 5 mg PO HS 08/17/21 07/19/22 History Cyclobenzaprine [Flexeril] 10 mg PO TID 08/17/21 07/19/22 History Sertraline [Zoloft] 150 mg PO HS 08/17/21 07/19/22 History hydroCHLOROthiazide [Hydrodiuril] 25 mg PO DAILY 08/17/21 07/19/22 History oxyCODONE-APAP 5-325MG [Percocet 1 tab PO QID PRN 12/17/21 07/19/22 History 5-325 mg] Allergies Allergy/AdvReac Type Severity Reaction Status Date / Time adhesive Allergy Rash/Hives Verified 07/19/22 12:31 ciprofloxacin [From Cipro] Allergy Rash/Hives Verified 07/19/22 12:31 ciprofloxacin HCl Allergy Rash/Hives Verified 07/19/22 12:31 [From Cipro] egg Allergy Unknown Verified 07/19/22 12:31 ibuprofen [From Motrin] Allergy Rash/Hives Verified 07/19/22 12:31 ketorolac tromethamine Allergy Rash/Hives Verified 07/19/22 12:31 [From Toradol] morphine Allergy Rash/Hives Verified 07/19/22 12:31 peanut Allergy Unknown Verified 07/19/22 12:31 Penicillins Allergy Rash/Hives Verified 07/19/22 12:31 Physical Exam Osteopathic Statement: *. No significant issues noted on an osteopathic structural exam other than those noted in the History and Physical/Consult. Vitals: Vital Signs Temp Pulse Pulse Pulse Resp BP BP 07/20/22 09:05 74 07/20/22 08:55 78 07/20/22 08:00 97.5 F L 89 16 133/69 07/20/22 02:00 98.0 F 96 18 144/74 07/19/22 20:00 97.9 F 95 16 147/91 07/19/22 19:20 95 16 147/91 07/19/22 19:05 94 16 155/93 07/19/22 18:50 97.6 F 92 16 164/100 07/19/22 18:43 97.6 F 97 18 170/102 07/19/22 18:35 97.6 F 95 16 156/102 07/19/22 18:20 97.6 F 94 16 167/98 07/19/22 18:00 92 16 163/84 07/19/22 17:45 92 16 145/67 07/19/22 17:30 96 16 174/87 07/19/22 17:15 94 16 184/95 07/19/22 17:02 98 F 105 H 16 145/84 07/19/22 12:06 97.7 F 91 16 144/91 Pulse Ox 07/20/22 09:05 07/20/22 08:55 94 L 07/20/22 08:00 91 L 07/20/22 02:00 92 L 07/19/22 20:00 94 L 07/19/22 19:20 91 L 07/19/22 19:05 94 L 07/19/22 18:50 90 L 07/19/22 18:43 94 L 07/19/22 18:35 93 L 07/19/22 18:20 91 L 07/19/22 18:00 92 L 07/19/22 17:45 96 07/19/22 17:30 94 L 07/19/22 17:15 94 L 07/19/22 17:02 94 L 07/19/22 12:06 96 Intake and Output 07/19/22 07/20/22 07/20/22 22:59 06:59 14:59 Intake Total 850 Output Total 20 Balance 830 Intake: IV 850 Output: Estimated Blood Loss 20 Other: Voiding Method Toilet Toilet # Voids 2 Weight 122.3 kg Results CBC & Chem 7: 07/20/22 07:23 07/19/22 12:15 Labs: Abnormal Lab Results - Last 24 Hours (Table) 07/19/22 07/20/22 Range/Units 12:15 07:23 WBC 12.64 H (4.50-10.00) X 10*3/uL Neutrophils # 10.13 H (1.80-7.70) X 10*3/uL Eosinophils # 0 L (0.04-0.35) X 10*3/uL Potassium 3.3 L (3.5-5.1) mmol/L
[2022-07-20] MEDS: PANTOPRAZOLE 40 MG/10 ML VIAL IV SCH (10:41)
[2022-07-20 10:49] LABS: African American GFR (CKD) 109.9 (60.0-200.0); Anion Gap 9.5 mmol/L (10.00-18.00); Blood Urea Nitrogen 8.6 mg/dL (9.0-27.0); Calcium 8.4 mg/dL (8.7-10.3); Carbon Dioxide 28.5 mmol/L (20.0-27.5); Magnesium 2.2 mg/dL (1.5-2.4); Non-African American GFR(CKD) 94.8 (60.0-200.0); Phosphorus 2.7 mg/dL (2.4-5.1); Potassium 3.8 mmol/L (3.5-5.5)
--- NOTE | 2022-07-20 12:18 | FL ---
EXAMINATION TYPE: FL UGI DATE OF EXAM: 07/20/2022 COMPARISON: NONE HISTORY: Post gastric surgery. TECHNIQUE: Limited single contrast UGI study is performed. A total of 15 seconds of fluoroscopic jarrett e was utilized during procedure and 7 images obtained. FINDINGS: The stomach demonstrate postsurgical morphology. No extravasation of contrast identified. No evidence of any mass or ulcer disease. The duodenal bulb, sweep, and proximal small bowel loops are unremarkable. IMPRESSION: Postsurgical changes without evidence of contrast extravasation.
[2022-07-20 12:49] VITALS: BMI 46.3
--- NOTE | 2022-07-20 14:12 | P.PN ---
Subjective Progress Note Date: 07/20/22 CHIEF COMPLAINT: Morbid obesity HISTORY OF PRESENT ILLNESS: Patient is postop day 1 status post laparoscopic sleeve gastrectomy with hiatal hernia repair. Patient reports that her pain is controlled. She denies any nausea or vomiting. Denies any flatus. She has been up and ambulating. Her upper GI shows postsurgical changes without evidence of contrast extravasation. Afebrile. WBC 12.6 for Hgb 14.2 platelets 207 sodium 139 potassium 3.8 creatinine 0.8 magnesium 2.2 PHYSICAL EXAM: VITAL SIGNS: Reviewed. GENERAL: Well-developed in no acute distress. HEENT: No sclera icterus. Extraocular movements grossly intact. Moist buccal mucosa. Head is atraumatic, normocephalic. ABDOMEN: Soft. Nondistended. Incision sites clean dry and intact. Abdominal binder in place NEUROLOGIC: Alert and oriented. Cranial nerves II through XII grossly intact. ASSESSMENT: 1. Morbid obesity, hypertension, asthma, GERD, sleep apnea, asthma, hiatal hernia status post laparoscopic cholecystectomy gastrectomy with hiatal hernia repair PLAN: -Start bariatric clear liquid diet -Continue IV fluids -Continue IV Tylenol -Continue pain medication as needed -Encouraged patient ambulate -Encouraged patient to use incentive spirometer -DVT prophylaxis Lovenox and GI prophylaxis Protonix Physician Prototype Deicer Assembler note has been reviewed by physician. Signing provider agrees with the documented findings, assessment, and plan of care. I have personally seen and examined the patient, reviewed the CONSERVATION EDUCATOR /PAs history, exam and MDM and agree with the assessment and plan as written. Based on total visit time, I have performed more than 50% of the visit. As above: Patient doing fairly well today. Complaining of mild pain. Says it's improved from yesterday. Upper GI shows no leak or obstruction. Labs note d. We'll repeat CBC tomorrow. Ambulate. Again bariatric liquids. Objective - Vital Signs Vital signs: Vital Signs Temp 97.5 F L 07/20/22 08:00 Pulse 74 07/20/22 09:05 Resp 16 07/20/22 08:00 BP 133/69 07/20/22 08:00 Pulse Ox 94 L 07/20/22 08:55 FiO2 Intake & Output 07/19/22 07/20/22 07/20/22 18:59 06:59 18:59 Intake Total 1950 Output Total 20 Balance 1930 Weight 122.3 kg 122.3 kg Intake: IV 1950 Output: Estimated Blood Loss 20 Other: Voiding Method Toilet Toilet # Voids 2 - Labs CBC & Chem 7: 07/20/22 07:23 07/20/22 07:23 Labs: Abnormal Lab Results - Last 24 Hours (Table) 07/20/22 07/20/22 Range/Units 07:23 07:23 WBC 12.64 H (4.50-10.00) X 10*3/uL Neutrophils # 10.13 H (1.80-7.70) X 10*3/uL Eosinophils # 0 L (0.04-0.35) X 10*3/uL Carbon Dioxide 28.5 H (20.0-27.5) mmol/L Anion Gap 9.50 L (10.00-18.00) mmol/L BUN 8.6 L (9.0-27.0) mg/dL Calcium 8.4 L (8.7-10.3) mg/dL
[2022-07-21] MEDS: ACETAMINOPHEN IV (For NPO) 1,000 MG in EMPTY BAG 1 BAG IVPB SCH ×3 (00:05→12:46)
[2022-07-21] MEDS: 0.9% NACL WITH KCL 20 MEQ/L 1,000 ML IV SCH (00:07)
[2022-07-21] MEDS: HYDROmorphone 1 MG/ML 1 ML SYRINGE IVP PRN ×4 (01:17→12:04)
[2022-07-21] MEDS: ENOXAPARIN 40 MG/0.4 ML SYRINGE SQ SCH (04:01)
[2022-07-21] MEDS: LACTATED RINGERS 1,000 ML IV SCH (07:22)
[2022-07-21] MEDS: PANTOPRAZOLE 40 MG/10 ML VIAL IV SCH (07:39)
[2022-07-21] MEDS: SIMETHICONE 40 MG/0.6 ML DROPS 2,000 MG/30 ML BOTTLE PO PRN (07:48)
[2022-07-21] MEDS ORDERED: bisacodyL 5 MG TABLET.DR PO PRN (08:00)
[2022-07-21] MEDS: ALBUTEROL NEBULIZED 2.5 MG/3 ML INHALATION SCH ×2 (08:06→11:54)
[2022-07-21 08:11] VITALS: RESP 16
[2022-07-21 10:29] LABS: Basophils # (A) 0.03 X 10*3/uL (0.00-0.10); Basophils % (A) 0.4 %; Eosinophils # (A) 0.13 X 10*3/uL (0.04-0.35); Eosinophils % (A) 1.5 %; HCT 39.8 % (37.2-46.3); HGB 13.4 g/dL (12.0-15.0); Immature Grans, Automated 0.2 %; Lymphocytes # (A) 2.03 X 10*3/uL (0.90-5.00); Lymphocytes % (A) 23.8 %; MCH 28.1 pg (27.0-32.0); MCHC 33.7 g/dL (32.0-37.0); MCV 83.4 fL (80.0-97.0); Monocytes # (A) 0.61 X 10*3/uL (0.20-1.00); Monocytes % (A) 7.1 %; NRBC Per 100 WBC 0 /100 WBCS (0.0-0.0); Neutrophils # (A) 5.72 X 10*3/uL (1.80-7.70); Platelet Count 200 X 10*3/uL (140-440); RBC 4.77 X 10*6/uL (4.10-5.20); RDW 14.1 % (11.5-14.5); WBC 8.54 X 10*3/uL (4.50-10.00)
[2022-07-21 12:27] VITALS: BP 128/81; PULSE 67; TEMP 98.1
--- NOTE | 2022-07-21 12:30 | P.DS ---
Providers Date of admission: 07/19/22 11:37 Expected date of discharge: 07/21/22 Attending physician: Nixon Cruz Consults: 07/19/22 16:58 Consult Physician Routine Consulting Provider: Elisa Luis Consult Reason/Comments: Medical management Do you want consulting provider notified?: Yes Primary care physician: Pedro Joe Hospital Course: Discharge diagnosis 1. Morbid obesity, hypertension, asthma, GERD, sleep apnea, asthma, hiatal hernia status post laparoscopic sleeve gastrectomy with hiatal hernia repair Hospital course This is a 37-year-old female with a known history of morbid obesity and hiatal hernia. She is status post laparoscopic cholecystectomy gastrectomy with hiatal hernia repair. Her upper GI showed no evidence of leak or obstruction. She is tolerating diet. Her pain is controlled. She is up and ambulating. She is afebrile. Her white count has normalized. She is stable for discharge. Please refer to chart for any further details. Physician Manager Call Center note has been reviewed by physician. Signing provider agrees with the documented findings, assessment, and plan of care. Patient Condition at Discharge: Stable Plan - Discharge Summary Discharge Rx Participant: Yes New Discharge Prescriptions: New bisacodyL [Dulcolax] 5 mg PO DAILY PRN #10 tab PRN Reason: Constipation Simethicone 40 mg/0.6 ml Drops [Mylicon Drops] 40 mg PO PCHS PRN #30 ml PRN Reason: Gas Ondansetron Odt [Zofran Odt] 4 mg PO Q8HR PRN #9 tab PRN Reason: Nausea Omeprazole [PriLOSEC] 40 mg PO DAILY #30 cap Continue Labetalol HCl 200 mg PO DAILY Gabapentin [Neurontin] 900 mg PO TID SUMAtriptan succinate [Imitrex] 100 mg PO DAILY PRN PRN Reason: Migraine Headache Omeprazole 20 mg PO HS ARIPiprazole [Abilify] 5 mg PO HS Cyclobenzaprine [Flexeril] 10 mg PO TID hydroCHLOROthiazide [Hydrodiuril] 25 mg PO DAILY oxyCODONE-APAP 5-325MG [Percocet 5-325 mg] 1 tab PO QID PRN PRN Reason: Pain Sertraline [Zoloft] 150 mg PO HS Discharge Medication List Labetalol HCl 200 mg PO DAILY 01/28/19 [History] Gabapentin [Neurontin] 900 mg PO TID 06/02/19 [History] SUMAtriptan succinate [Imitrex] 100 mg PO DAILY PRN 06/02/19 [History] Omeprazole 20 mg PO HS 08/28/19 [History] ARIPiprazole [Abilify] 5 mg PO HS 08/17/21 [History] Cyclobenzaprine [Flexeril] 10 mg PO TID 08/17/21 [History] Sertraline [Zoloft] 150 mg PO HS 08/17/21 [History] hydroCHLOROthiazide [Hydrodiuril] 25 mg PO DAILY 08/17/21 [History] oxyCODONE-APAP 5-325MG [Percocet 5-325 mg] 1 tab PO QID PRN 12/17/21 [History] Omeprazole [PriLOSEC] 40 mg PO DAILY #30 cap 07/21/22 [Rx] Ondansetron Odt [Zofran Odt] 4 mg PO Q8HR PRN #9 tab 07/21/22 [Rx] Simethicone 40 mg/0.6 ml Drops [Mylicon Drops] 40 mg PO PCHS PRN #30 ml 07/21/22 [Rx] bisacodyL [Dulcolax] 5 mg PO DAILY PRN #10 tab 07/21/22 [Rx] Follow up Appointment(s)/Referral(s): Nixon Cruz MD [Medical Doctor] - 07/27/22 [place], [place] [NON-STAFF] - 07/23/22 Activity/Diet/Wound Care/Special Instructions: No driving while taking percocet No lifting over 10 pounds You may shower. No soaking or tub baths for 2 weeks Very light activity until you are reevaluated at your follow up appointment with your surgeon No straws or carbonated beverages Follow-up with the bariatric nurse on Tuesday Follow-up with Dr. Cruz on Tuesday at bariatric center Discharge Disposition: HOME SELF-CARE
--- NOTE | 2022-07-21 17:21 | P.PN ---
Subjective Progress Note Date: 07/21/22 Patient seen and examined at bedside. Patient denies chest pain shortness breath nausea vomiting fevers or chills. Patient is awaiting discharge today. Objective - Vital Signs Vital signs: Vital Signs Temp 98.1 F 07/21/22 08:00 Pulse 76 07/21/22 08:06 Resp 16 07/21/22 08:06 BP 128/81 07/21/22 08:00 Pulse Ox 97 07/21/22 08:06 FiO2 Intake & Output 07/20/22 07/21/22 07/21/22 18:59 06:59 18:59 Intake Total 320 Balance 320 Weight 122.3 kg Intake: Oral 320 Other: Voiding Method Toilet # Voids 3 2 - Exam General: [non toxic], [no distress], [appears at stated age] Derm: [warm], [dry] Head: [atraumatic], [normocephalic], [symmetric] Eyes: [EOMI], [no lid lag], [anicteric sclera] Mouth: [no lip lesion], [mucus membranes moist] Cardiovascular: [S1S2 reg], [no murmur], [positive posterior tibial pulse bilateral], Lungs: [CTA bilateral], [no rhonchi, no rales] , [no accessory muscle use] Abdominal: [soft], [ nontender to palpation], [no guarding], [no appreciable organomegaly] Ext: [no gross muscle atrophy], [no edema], [no contractures] Neuro: [ CN II-XI grossly intact], [no focal neuro deficits] Psych: [Alert], [oriented], [appropriate affect] - Labs CBC & Chem 7: 07/21/22 06:51 07/20/22 07:23 Assessment and Plan Assessment: 37 yo F s/p gastric sleeve Obesity wtih BMI 46.3 - s/p gastric sleeve - continued outpatient weight loss. HTN - BP currently controlled - resume home HCTZ and labetalol once able to have oral medications - continue prn hydralazine Asthma - no exacerbation - prn bronchidilators Fibromyalgia - pain control - resume home gabapentin and flexaril when okay for diet DC planning today Patient is cleared for discharge from medical standpoint.
== END 2022-07-21 14:09 | disposition home or self-care (01) | DRG 621 ==
LOC: 2ORMAIN 11:37 → 4SSUR 17:45
PROVIDERS: ADMIT Surgery; ATTEND Surgery
PROC: 0BQT4ZZ Repair Diaphragm, Percutaneous Endoscopic Approach (ICD-10-PCS; principal; 2022-07-19 13:05)
PROC: 0DB64Z3 Excision of Stomach, Percutaneous Endoscopic Approach, Vertical (ICD-10-PCS; principal; 2022-07-19 13:05)
PROC: 8E0W4CZ Robotic Assisted Procedure of Trunk Region, Percutaneous Endoscopic Approach (ICD-10-PCS; principal; 2022-07-19 13:05)
DX: E66.01 Morbid (severe) obesity due to excess calories (principal); E28.2 Polycystic ovarian syndrome; Z68.42 Body mass index [BMI] 45.0-49.9, adult; Z28.310 Unvaccinated for COVID-19; I10 Essential (primary) hypertension; G43.909 Migraine, unspecified, not intractable, without status migrainosus; G47.33 Obstructive sleep apnea (adult) (pediatric); J45.909 Unspecified asthma, uncomplicated; K21.9 Gastro-esophageal reflux disease without esophagitis; K44.9 Diaphragmatic hernia without obstruction or gangrene; M79.7 Fibromyalgia; K29.70 Gastritis, unspecified, without bleeding; M19.90 Unspecified osteoarthritis, unspecified site; G89.29 Other chronic pain; M54.2 Cervicalgia; M54.9 Dorsalgia, unspecified; F32.A Depression, unspecified; F41.9 Anxiety disorder, unspecified; L30.9 Dermatitis, unspecified; N97.9 Female infertility, unspecified; I83.90 Asymptomatic varicose veins of unspecified lower extremity; Z79.899 Other long term (current) drug therapy; Z87.891 Personal history of nicotine dependence; Z87.442 Personal history of urinary calculi; Z88.6 Allergy status to analgesic agent; Z88.1 Allergy status to other antibiotic agents; Z91.012 Allergy to eggs; Z88.5 Allergy status to narcotic agent; Z91.010 Allergy to peanuts; Z88.0 Allergy status to penicillin; Z91.048 Other nonmedicinal substance allergy status
CPT/HCPCS: 74240; 80051; 82310; 82565; 83735; 84100; 84132; 84520; 85025; 86850; 86900; 86901; 88307; 94640; 94760

== ENCOUNTER → 2022-07-23 | Outpatient (CLI) | payer OTHER, MEDICARE ==
[2022-07-23 10:36] VITALS: BP 123/83; PULSE 82; TEMP 98.4; BMI 45.8
== END ==
LOC: BARWHC3 09:58
PROVIDERS: ATTEND Surgery
DX: Z09 Encounter for follow-up examination after completed treatment for conditions other than malignant neoplasm (principal); Z98.84 Bariatric surgery status; F17.200 Nicotine dependence, unspecified, uncomplicated; Z91.048 Other nonmedicinal substance allergy status; Z88.0 Allergy status to penicillin; Z88.5 Allergy status to narcotic agent; Z91.012 Allergy to eggs; Z88.6 Allergy status to analgesic agent; Z91.010 Allergy to peanuts
CPT/HCPCS: 99211

== ENCOUNTER → 2022-07-27 | Outpatient (CLI) | payer OTHER, MEDICARE ==
[2022-07-27 14:17] VITALS: BP 132/86; PULSE 88; TEMP 98.5; BMI 46.3
--- NOTE | 2022-07-27 14:50 | P.BASOAP ---
Subjective Progress Note Date: 07/27/22 Principal diagnosis: Morbid obesity Patient returns after sleeve gastrectomy 1 week ago. Complaining of mild soreness. Says her pain is improving daily. She is getting about 40-60 ounces of liquids daily. She is getting about 45 g of protein daily. No heartburn. No nausea or vomiting. Vitals are stable. Objective - Vital Signs Vital signs: Vital Signs Temp 98.5 F 07/27/22 14:12 Pulse 88 07/27/22 14:12 Resp BP 132/86 07/27/22 14:12 Pulse Ox FiO2 Intake & Output 07/26/22 07/27/22 07/27/22 18:59 06:59 18:59 Weight 122.47 kg - Exam Abdomen: Soft, nondistended, incisions clean and dry, mild ecchymosis at extraction site Assessment/Plan (1) Morbid obesity with BMI of 45.0-49.9, adult Narrative/Plan: Patient doing well at this time. Continue increasing protein and liquid intake. Monitor incision sites. May increase aerobic activity and patient states she likely will be joining [employer] soon. Plan return visit in 2-3 weeks. Plan: Date: 07/27/22 Initial Weight: Initial BMI: Current Weight: 122.47 kg Current BMI: 46.3 Type of Surgery: Total Volume in Band: Previous Volume: Volume Removed: Volume Added: Band Size:
== END ==
LOC: BARWHC3 13:33
PROVIDERS: ATTEND Surgery
DX: Z71.3 Dietary counseling and surveillance (principal); F17.200 Nicotine dependence, unspecified, uncomplicated; Z91.012 Allergy to eggs; Z91.010 Allergy to peanuts; Z88.6 Allergy status to analgesic agent; Z88.0 Allergy status to penicillin; Z88.1 Allergy status to other antibiotic agents; Z88.5 Allergy status to narcotic agent; Z91.048 Other nonmedicinal substance allergy status; E66.01 Morbid (severe) obesity due to excess calories; Z68.42 Body mass index [BMI] 45.0-49.9, adult
CPT/HCPCS: 97803; 99211

== ENCOUNTER → 2022-08-10 | Outpatient (CLI) | payer OTHER, MEDICARE ==
[2022-08-10 12:27] VITALS: BP 122/77; PULSE 92; TEMP 98.2; BMI 45.3
--- NOTE | 2022-08-10 12:32 | P.BASOAP ---
Subjective Progress Note Date: 08/10/22 Principal diagnosis: Morbid obesity Patient returns for 1 month follow-up. Patient has done fairly well since her last visit. She is tolerating over 80 ounces of liquids and over 60 g of protein daily. She does admit to intermittent episodes of regurgitation if she drinks or eats too fast. She says this is more common with a pured diet. She did join a gym and is been going on almost daily. Her soreness at her incision sites as mostly resolved. Heart rate today 99. No fevers. Objective - Vital Signs Vital signs: Vital Signs Temp 98.2 F 08/10/22 12:26 Pulse 92 08/10/22 12:26 Resp BP 122/77 08/10/22 12:26 Pulse Ox FiO2 Intake & Output 08/09/22 08/10/22 08/10/22 18:59 06:59 18:59 Weight 119.748 kg - Exam Abdomen: Soft, nondistended, nontender, incisions clean and dry Assessment/Plan (1) Morbid obesity with BMI of 45.0-49.9, adult Narrative/Plan: Patient doing well at this time. Continue increasing her diet. Exercise regimen. Stay on antiacids for now. Return visit one month. We'll check one month labs at this time. Plan: Date: 08/10/22 Initial Weight: Initial BMI: Current Weight: 119.748 kg Current BMI: 45.3 Type of Surgery: Total Volume in Band: Previous Volume: Volume Removed: Volume Added: Band Size:
== END ==
LOC: BARWHC3 12:18
PROVIDERS: ATTEND Surgery
DX: E66.01 Morbid (severe) obesity due to excess calories (principal); Z09 Encounter for follow-up examination after completed treatment for conditions other than malignant neoplasm; Z68.42 Body mass index [BMI] 45.0-49.9, adult; F17.200 Nicotine dependence, unspecified, uncomplicated; Z88.5 Allergy status to narcotic agent; Z88.0 Allergy status to penicillin; Z88.1 Allergy status to other antibiotic agents; Z88.6 Allergy status to analgesic agent; Z91.048 Other nonmedicinal substance allergy status; Z91.010 Allergy to peanuts; Z91.012 Allergy to eggs
CPT/HCPCS: 97803; 99211

== ENCOUNTER → 2022-08-13 | Outpatient (CLI) | payer OTHER, MEDICARE ==
[2022-08-13 10:35] LABS: HCT 46.6 % (37.2-46.3); MCH 27.5 pg (27.0-32.0); MCHC 32.2 g/dL (32.0-37.0); MCV 85.3 fL (80.0-97.0); Mean Platelet Volume 11.1 fL (9.5-12.2); NRBC Per 100 WBC 0 /100 WBCS (0.0-0.0); Platelet Count 247 X 10*3/uL (140-440); RBC 5.46 X 10*6/uL (4.10-5.20); RDW 14.6 % (11.5-14.5); WBC 8.18 X 10*3/uL (4.50-10.00)
[2022-08-13 11:34] LABS: African American GFR (CKD) 109.9 (60.0-200.0); Albumin 4.4 g/dL (3.8-4.9); Albumin/Globulin Ratio 1.91 (1.60-3.17); Anion Gap 9.3 mmol/L (10.00-18.00); BUN/Creat Ratio 9.75 Ratio (12.00-20.00); Blood Urea Nitrogen 7.8 mg/dL (9.0-27.0); Calcium 9.3 mg/dL (8.7-10.3); Carbon Dioxide 26.7 mmol/L (20.0-27.5); Globulin 2.3 g/dL (1.6-3.3); Non-African American GFR(CKD) 94.8 (60.0-200.0); Potassium 3.8 mmol/L (3.5-5.5); Total Bilirubin 0.4 mg/dL (0.30-1.20); Total Protein 6.7 g/dL (6.2-8.2)
== END | disposition home or self-care (01) ==
LOC: LABWHC1 07:01
PROVIDERS: ATTEND Surgery
DX: E66.01 Morbid (severe) obesity due to excess calories (principal); K90.89 Other intestinal malabsorption; E55.9 Vitamin D deficiency, unspecified
CPT/HCPCS: 36415; 80053; 82306; 82607; 82746; 83540; 84425; 85027

== ENCOUNTER → 2023-02-08 | Outpatient (CLI) | payer OTHER, MEDICARE ==
[2023-02-08 14:45] VITALS: BP 144/88; PULSE 73; RESP 16; TEMP 98.2; BMI 37.4
--- NOTE | 2023-02-08 16:39 | P.BASOAP ---
Subjective Progress Note Date: 02/08/23 Principal diagnosis: Morbid obesity Patient with very poor follow-up. Underwent sleeve gastrectomy last July. She only saw me one time after surgery. Thankfully she has done fairly well from a bariatric point of view. Current weight 218. She was 264 last visit. She had a recent kidney stone is also had issues with back pain. She says because of the back pain she stopped going to the gym for 2 months. Patient takes her daily antiacids with control of her symptoms. She is due for lab work. Objective - Vital Signs Vital signs: Vital Signs Temp 98.2 F 02/08/23 14:43 Pulse 73 02/08/23 14:43 Resp 16 02/08/23 14:43 BP 144/88 02/08/23 14:43 Pulse Ox FiO2 Intake & Output 02/07/23 02/08/23 02/08/23 18:59 06:59 18:59 Weight 98.883 kg - Exam Abdomen: Soft, nontender, nondistended Assessment/Plan (1) Morbid obesity with BMI of 45.0-49.9, adult Narrative/Plan: Patient seems to be doing fairly well from a bariatric point of view. We discussed her poor follow-up in detail. We'll check 6 month labs at this time. Continue antiacids. Follow-up 2 months. Plan: Date: 02/08/23 Initial Weight: 98.883 kg Initial BMI: 37.4 Current Weight: 98.883 kg Current BMI: 37.4 Type of Surgery: Total Volume in Band: Previous Volume: Volume Removed: Volume Added: Band Size:
== END ==
LOC: BARWHC3 14:01
PROVIDERS: ATTEND Surgery
DX: E66.01 Morbid (severe) obesity due to excess calories (principal); Z68.37 Body mass index [BMI] 37.0-37.9, adult; Z91.048 Other nonmedicinal substance allergy status; Z88.1 Allergy status to other antibiotic agents; Z91.012 Allergy to eggs; Z88.6 Allergy status to analgesic agent; Z88.5 Allergy status to narcotic agent; Z91.011 Allergy to milk products; Z88.0 Allergy status to penicillin; F17.200 Nicotine dependence, unspecified, uncomplicated
CPT/HCPCS: 99211

== ENCOUNTER → 2023-02-08 | Outpatient (CLI) | payer OTHER, MEDICARE ==
--- NOTE | 2023-02-08 13:43 | XR ---
EXAMINATION TYPE: XR KUB DATE OF EXAM: 02/08/2023 1:32 PM INDICATION: Patient age:Female; 37 years old; Reason for study: N20.1 Calculus ureter; COMPARISON: None. TECHNIQUE: One radiographic view of the abdomen was obtained. FINDINGS: Prior calculus in the left ureter near the pelvic brim is no longer visualized. The bowel g as pattern is nonspecific without dilated loops of small or large bowel. There is no evidence for org anomegaly or pneumoperitoneum. The osseous structures are intact. No abnormal calcifications are pr esent. Fecal material and gas are demonstrated throughout the colon and rectum. IMPRESSION: 1. No longer visualized left distal ureter calcification. 2. Nonspecific bowel gas pattern.
== END | disposition home or self-care (01) ==
LOC: RADXRMAIN 13:11
PROVIDERS: ATTEND Urology
DX: N20.1 Calculus of ureter (principal)
CPT/HCPCS: 74018

== ENCOUNTER → 2023-02-10 | Outpatient (CLI) | payer OTHER, MEDICARE ==
[2023-02-10 10:52] LABS: HGB 15.7 g/dL (12.0-15.0); MCH 27.8 pg (27.0-32.0); MCHC 32.7 g/dL (32.0-37.0); MCV 85.1 fL (80.0-97.0); Mean Platelet Volume 10.7 fL (9.5-12.2); NRBC Per 100 WBC 0 /100 WBCS (0.0-0.0); Platelet Count 232 X 10*3/uL (140-440); RBC 5.64 X 10*6/uL (4.10-5.20); RDW 13.7 % (11.5-14.5); WBC 7.36 X 10*3/uL (4.50-10.00)
[2023-02-10 11:45] LABS: Albumin 4.2 g/dL (3.8-4.9); Albumin/Globulin Ratio 1.77 (1.60-3.17); Anion Gap 9.2 mmol/L (10.00-18.00); BUN/Creat Ratio 14.32 Ratio (12.00-20.00); Blood Urea Nitrogen 11.2 mg/dL (9.0-27.0); Calcium 9.3 mg/dL (8.7-10.3); Carbon Dioxide 26.3 mmol/L (20.0-27.5); Globulin 2.4 g/dL (1.6-3.3); Non-African American GFR(CKD) 97.5 (60.0-200.0); Potassium 3.9 mmol/L (3.5-5.5); Total Bilirubin 0.5 mg/dL (0.30-1.20); Total Protein 6.5 g/dL (6.2-8.2)
== END | disposition home or self-care (01) ==
LOC: LABWHC1 06:44
PROVIDERS: ATTEND Surgery
DX: E66.01 Morbid (severe) obesity due to excess calories (principal); K90.89 Other intestinal malabsorption; E55.9 Vitamin D deficiency, unspecified
CPT/HCPCS: 36415; 80053; 82306; 82607; 82746; 83540; 84425; 85027

== ENCOUNTER → 2023-04-12 | Outpatient (CLI) | payer OTHER, MEDICARE ==
[2023-04-12 13:01] VITALS: BP 156/95; PULSE 63; RESP 16; TEMP 98.2; BMI 35.9
--- NOTE | 2023-04-12 13:29 | P.BASOAP ---
Subjective Progress Note Date: 04/12/23 Principal diagnosis: morbid obesity 37-year-old female returns for recheck. She was last seen in January. Unfortunately patient has had a lot of stress. Her brother had a heart attack and is not doing well. She has not been exercising as a result of that. She still taking daily antiacids. She tried stopping but still having some issues. He had 6 month labs in February and her vitamin D and folate were low. She started supplementation. Objective - Vital Signs Vital signs: Vital Signs Temp 98.2 F 04/12/23 12:59 Pulse 63 04/12/23 12:59 Resp 16 04/12/23 12:59 BP 156/95 04/12/23 12:59 Pulse Ox FiO2 Intake & Output 04/11/23 04/12/23 04/12/23 18:59 06:59 18:59 Weight 94.801 kg - Exam Abdomen: Soft, nontender, nondistended Assessment/Plan (1) Morbid obesity with BMI of 45.0-49.9, adult Narrative/Plan: patient doing fairly well regarding weight loss. Has lost 9 pounds since her last visit. Continue antiacids. Recheck 2-3 months. Plan: Date: 04/12/23 Initial Weight: 98.883 kg Initial BMI: 37.4 Current Weight: 94.801 kg Current BMI: 35.9 Type of Surgery: Vertical Sleeve Gastrectomy Total Volume in Band: Previous Volume: Volume Removed: Volume Added: Band Size:
== END ==
LOC: BARWHC3 12:35
PROVIDERS: ATTEND Surgery
DX: E66.01 Morbid (severe) obesity due to excess calories (principal); Z68.35 Body mass index [BMI] 35.0-35.9, adult; Z91.048 Other nonmedicinal substance allergy status; Z88.1 Allergy status to other antibiotic agents; Z88.6 Allergy status to analgesic agent; Z91.02 Food additives allergy status; Z88.0 Allergy status to penicillin; Z88.5 Allergy status to narcotic agent; Z91.012 Allergy to eggs; F17.200 Nicotine dependence, unspecified, uncomplicated
CPT/HCPCS: 97803; 99211

== ENCOUNTER → 2023-07-12 | Outpatient (CLI) | payer OTHER, MEDICARE ==
[2023-07-12 13:01] VITALS: BP 156/98; PULSE 58; RESP 16; TEMP 98.6; BMI 34.3
--- NOTE | 2023-07-12 13:09 | P.BASOAP ---
Subjective Progress Note Date: 07/12/23 Principal diagnosis: Morbid obesity 38-year-old female here for bariatric system. She was last seen 3 months ago. She is 1 year post sleeve gastrectomy. Since her last visit the patient did have her brother from cardiac issues and stroke. She has lost 9 pounds since her last visit. She is walking much more. Sometimes up to 5 miles per day. She has episodes of emesis every few weeks when eating too much. She is still on antiacids. She did try stopping it and this was not successful. Her GERD symptoms are improved from preop. Objective - Vital Signs Vital signs: Vital Signs Temp 98.6 F 07/12/23 12:58 Pulse 58 L 07/12/23 12:58 Resp 16 07/12/23 12:58 BP 156/98 07/12/23 12:58 Pulse Ox FiO2 Intake & Output 07/11/23 07/12/23 07/12/23 18:59 06:59 18:59 Weight 90.718 kg - Exam Abdomen: Soft, nontender, nondistended Assessment/Plan (1) Morbid obesity with BMI of 45.0-49.9, adult Narrative/Plan: 38-year-old female overall doing fairly well after previously gastrectomy. Check annual labs at this time. Follow-up 6 months. Continue exercise routine. Continue antiacids. Plan: Date: 07/12/23 Initial Weight: 98.883 kg Initial BMI: 37.4 Current Weight: 90.718 kg Current BMI: 34.3 Type of Surgery: Vertical Sleeve Gastrectomy Total Volume in Band: Previous Volume: Volume Removed: Volume Added: Band Size:
== END ==
LOC: BARWHC3 12:47
PROVIDERS: ATTEND Surgery
DX: E66.01 Morbid (severe) obesity due to excess calories (principal); K21.9 Gastro-esophageal reflux disease without esophagitis; F17.200 Nicotine dependence, unspecified, uncomplicated; Z98.84 Bariatric surgery status; Z91.048 Other nonmedicinal substance allergy status; Z88.1 Allergy status to other antibiotic agents; Z91.012 Allergy to eggs; Z88.0 Allergy status to penicillin; Z91.010 Allergy to peanuts; Z88.8 Allergy status to other drugs, medicaments and biological substances; Z88.5 Allergy status to narcotic agent; Z68.34 Body mass index [BMI] 34.0-34.9, adult
CPT/HCPCS: 99211

== ENCOUNTER → 2023-08-09 | Outpatient (CLI) | payer OTHER, MEDICARE ==
[2023-08-09 11:06] LABS: HCT 42.5 % (37.2-46.3); MCH 28.8 pg (27.0-32.0); MCHC 32.9 d/dL (32.0-37.0); MCV 87.4 FL (80.0-97.0); Mean Platelet Volume 11.3 FL (9.5-12.2); NRBC Per 100 WBC 0 X 10*3/uL (0.00-0.01); Platelet Count 186 X 10*3/uL (140-440); RBC 4.86 X 10*6/uL (4.10-5.20); RDW 13.3 % (11.5-14.5); WBC 7.34 X 10*3/uL (4.50-10.00)
[2023-08-09 11:34] LABS: ALT 10 U/L (8-44); AST 10 U/L (13-35); Alkaline Phosphatase 61 U/L (41-126); BUN/Creat Ratio 15.62 Ratio (12.00-20.00); Blood Urea Nitrogen 12.5 mg/dL (9.0-27.0); Calcium 8.9 mg/dL (8.7-10.3); Carbon Dioxide 28.4 mmol/L (21.6-31.8); Chloride 106 mmol/L (96-109); Globulin 2.1 d/dL (1.6-3.3); Glucose 84 mg/dL (70-110); Iron 57 UG/DL (50-170); Potassium 4.2 mmol/L (3.5-5.5); Sodium 144 mmol/L (135-145); Total Bilirubin 0.4 mg/dL (0.3-1.2); Total Protein 6.1 d/dL (6.2-8.2)
== END | disposition home or self-care (01) ==
LOC: LABWHC1 06:53
PROVIDERS: ATTEND Surgery
DX: E55.9 Vitamin D deficiency, unspecified (principal); K90.89 Other intestinal malabsorption
CPT/HCPCS: 36415; 80053; 82306; 82607; 82746; 83540; 84425; 85027

== ENCOUNTER 2024-02-01 07:38 | Inpatient (IN) | payer OTHER, MEDICARE ==
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
[2024-02-01] MEDS: HYDROmorphone 0.5 MG/0.5 ML SYRINGE IVP STA (07:50)
[2024-02-01] MEDS: SODIUM CHLORIDE 0.9% 1,000 ML IV STA (07:56)
[2024-02-01 08:03] LABS: Basophils # (A) 0.1 k/uL (0-0.2); Basophils % (A) 0 %; Eosinophils # (A) 0.2 k/uL (0-0.7); Eosinophils % (A) 1 %; HCT 43.5 % (34.0-46.0); HGB 14.5 gm/dL (11.4-16.0); Lymphocytes # (A) 2.3 k/uL (1.0-4.8); Lymphocytes % (A) 17 %; MCH 28.4 pg (25.0-35.0); MCHC 33.4 g/dL (31.0-37.0); MCV 84.9 fL (80.0-100.0); Mean Platelet Volume 8.2; Monocytes # (A) 0.5 k/uL (0-1.0); Monocytes % (A) 4 %; Neutrophils # (A) 10.6 k/uL (1.3-7.7); Neutrophils % (A) 77 %; Platelet Count 205 k/uL (150-450); RBC 5.13 m/uL (3.80-5.40); RDW 14.3 % (11.5-15.5); WBC 13.7 k/uL (3.8-10.6)
[2024-02-01] MEDS: DIPH,PERTUS(ACELL)TETVAC-LF 0.5 ML VIAL IM ONE (08:03)
[2024-02-01 08:16] LABS: ALT 16 U/L (4-34); AST 27 U/L (14-36); African American GFR (CKD) >90 (>60 ml/min/1.73 sqM); Albumin 3.6 g/dL (3.5-5.0); Alcohol <10 mg/dL; Alkaline Phosphatase 61 U/L (38-126); Anion Gap 6 mmol/L; Blood Urea Nitrogen 10 mg/dL (7-17); Calcium 8.6 mg/dL (8.4-10.2); Carbon Dioxide 24 mmol/L (22-30); Chloride 112 mmol/L (98-107); Glucose 96 mg/dL (74-99); Non-African American GFR(CKD) >90 (>60 ml/min/1.73 sqM); Potassium 2.9 mmol/L (3.5-5.1); Sodium 142 mmol/L (137-145); Total Bilirubin 0.7 mg/dL (0.2-1.3); Total Protein 6.3 g/dL (6.3-8.2)
[2024-02-01 08:21] LABS: INR 0.9 (<1.2); Partial Thromboplastin Time 22.5 sec (22.0-30.0); Prothrombin Time 10.3 sec (10.0-12.5)
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
[2024-02-01 09:18] LABS: Amphetamine Screen,Urine Not Detected (NotDetected); Barbiturate Screen,Urine Not Detected (NotDetected); Benzodiazepines Screen,Urine Not Detected (NotDetected); Cocaine Screen,Urine Not Detected (NotDetected); Methadone Screen, Urine Not Detected (NotDetected); Opiate Screen,Urine Detected (NotDetected); Oxycodone Screen, Urine Detected (NotDetected); Phencyclidine Screen,Urine Not Detected (NotDetected); Tricyclic Antidepressant,Urine Not Detected (NotDetected); Urn Cannabinoid Scrn Detected (NotDetected)
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
[2024-02-01] MEDS: POTASSIUM CHLORIDE 20 MEQ in WATER FOR INJECTION 1 100ML.BAG IVPB STA (09:20)
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
[2024-02-01] MEDS: HYDROmorphone 1 MG/ML 1 ML SYRINGE IVP STA ×3 (09:29→18:13)
[2024-02-01] MEDS: POTASSIUM CHLORIDE 10 MEQ in WATER FOR INJECTION 1 100ML.BAG IVPB STA (09:33)
[2024-02-01] MEDS ORDERED: ACETAMINOPHEN TAB 325 MG TAB PO PRN (10:00)
[2024-02-01] MEDS ORDERED: NALOXONE 0.4 MG/ML 1 ML VIAL IV PRN (10:00)
[2024-02-01] MEDS: SODIUM CHLORIDE 0.9% 1,000 ML IV SCH (10:40)
[2024-02-01] MEDS: traMADol 50 MG TAB PO PRN (11:23)
[2024-02-01] MEDS: HYDROmorphone 0.5 MG/0.5 ML SYRINGE IVP PRN (12:45)
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
[2024-02-01] MEDS: HYDROmorphone 1 MG/ML 1 ML SYRINGE IVP PRN (14:52)
[2024-02-01] MEDS ORDERED: ALPRAZolam 0.25 MG TAB PO PRN (14:54)
[2024-02-01] MEDS ORDERED: PANTOPRAZOLE 40 MG TABLET PO PRN (14:54)
[2024-02-01] MEDS ORDERED: SUMAtriptan succinate 50 MG TAB PO PRN (14:54)
[2024-02-01] MEDS ORDERED: METHYLPHENIDATE HCL 10 MG TAB PO PRN (14:54)
[2024-02-01] MEDS: GABAPENTIN 100 MG CAP PO SCH (16:10)
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
[2024-02-01] MEDS: GABAPENTIN 400 MG CAP PO SCH (16:24)
[2024-02-01] MEDS: oxyCODONE-APAP 10-325MG 1 EACH TAB PO PRN (18:17)
[2024-02-01] MEDS: CYCLOBENZAPRINE 5 MG TAB PO PRN (20:06)
[2024-02-01] MEDS: FAMOTIDINE 20 MG TAB PO SCH (20:06)
[2024-02-01] MEDS: SERTRALINE 50 MG TAB PO SCH (20:06)
[2024-02-01] MEDS: HEPARIN SODIUM,PORCINE 5,000 UNIT/ML 1 ML VIAL SQ SCH (20:07)
[2024-02-01] MEDS ORDERED: SERTRALINE 100 MG TAB PO SCH (21:00)
[2024-02-01] MEDS: ARIPiprazole 10 MG TAB PO SCH (21:12)
[2024-02-02 07:36] VITALS: RESP 17
[2024-02-02] MEDS: NORETHINDRONE E ESTRADIOL IRON PO SCH (08:44)
[2024-02-02] MEDS: METHYLFOLATE 15 MG PO SCH (08:44)
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
[2024-02-02 10:01] LABS: Basophils # (A) 0.01 X 10*3/uL (0.00-0.10); Basophils % (A) 0.1 %; Eosinophils # (A) 0.09 X 10*3/uL (0.04-0.35); HGB 12.5 g/dL (12.0-15.0); Lymphocytes # (A) 1.76 X 10*3/uL (0.90-5.00); Lymphocytes % (A) 19.6 %; MCH 28.2 pg (27.0-32.0); MCHC 33.8 g/dL (32.0-37.0); MCV 83.5 FL (80.0-97.0); Mean Platelet Volume 10.8 FL (9.5-12.2); Monocytes # (A) 0.59 X 10*3/uL (0.20-1.00); Monocytes % (A) 6.6 %; NRBC Per 100 WBC 0 X 10*3/uL (0.00-0.01); Neutrophils % (A) 72.3 %; Platelet Count 180 X 10*3/uL (140-440); RBC 4.43 X 10*6/uL (4.10-5.20); RDW 14.4 % (11.5-14.5); WBC 8.99 X 10*3/uL (4.50-10.00)
[2024-02-02 10:20] LABS: ALT 12 U/L (8-44); AST 12 U/L (13-35); Albumin 3.6 g/dL (3.8-4.9); Alkaline Phosphatase 55 U/L (41-126); BUN/Creat Ratio 12.17 Ratio (12.00-20.00); Blood Urea Nitrogen 7.3 mg/dL (9.0-27.0); Calcium 8.4 mg/dL (8.7-10.3); Chloride 106 mmol/L (96-109); Glucose 93 mg/dL (70-110); Potassium 2.9 mmol/L (3.5-5.5); Sodium 143 mmol/L (135-145); Total Bilirubin 0.8 mg/dL (0.3-1.2); Total Protein 5.6 g/dL (6.2-8.2)
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
[2024-02-02 14:21] VITALS: BP 108/69; PULSE 65; TEMP 98
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
[2024-02-02] MEDS: POTASSIUM CHLORIDE ER 20 MEQ TAB.ER PO SCH (16:26)
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
[2024-02-03] MEDS ORDERED: LIDOCAINE 4% PATCH TOPICAL SCH (09:00)
== END 2024-02-02 19:20 | disposition home or self-care (01) | DRG 552 ==
LOC: EC 07:38 → 4SSUR 10:00
PROVIDERS: ADMIT Surgery Plastic and Reconstructive Surgery; ATTEND Surgery Plastic and Reconstructive Surgery
DX: S32.031A Stable burst fracture of third lumbar vertebra, initial encounter for closed fracture (principal); M48.56XA Collapsed vertebra, not elsewhere classified, lumbar region, initial encounter for fracture; S22.20XA Unspecified fracture of sternum, initial encounter for closed fracture; S22.31XA Fracture of one rib, right side, initial encounter for closed fracture; G21.9 Secondary parkinsonism, unspecified; V89.2XXA Person injured in unspecified motor-vehicle accident, traffic, initial encounter; V48.5XXA Car driver injured in noncollision transport accident in traffic accident, initial encounter; Y92.410 Unspecified street and highway as the place of occurrence of the external cause; Z79.899 Other long term (current) drug therapy; Z82.49 Family history of ischemic heart disease and other diseases of the circulatory system; Z90.49 Acquired absence of other specified parts of digestive tract; Z98.84 Bariatric surgery status; Z87.19 Personal history of other diseases of the digestive system; G47.33 Obstructive sleep apnea (adult) (pediatric); F32.9 Major depressive disorder, single episode, unspecified; F32.A Depression, unspecified; F41.9 Anxiety disorder, unspecified; G43.909 Migraine, unspecified, not intractable, without status migrainosus; M79.7 Fibromyalgia; M19.90 Unspecified osteoarthritis, unspecified site; L30.9 Dermatitis, unspecified; N64.89 Other specified disorders of breast; E87.6 Hypokalemia; M54.10 Radiculopathy, site unspecified; I10 Essential (primary) hypertension; G89.29 Other chronic pain; F17.210 Nicotine dependence, cigarettes, uncomplicated; E66.9 Obesity, unspecified; M51.37 Other intervertebral disc degeneration, lumbosacral region; M47.892 Other spondylosis, cervical region; E28.2 Polycystic ovarian syndrome; I83.90 Asymptomatic varicose veins of unspecified lower extremity; I07.1 Rheumatic tricuspid insufficiency; M10.9 Gout, unspecified; Z68.38 Body mass index [BMI] 38.0-38.9, adult; Z87.442 Personal history of urinary calculi; Z88.1 Allergy status to other antibiotic agents; Z91.048 Other nonmedicinal substance allergy status; Z91.012 Allergy to eggs; Z88.6 Allergy status to analgesic agent
CPT/HCPCS: 36415; 70450; 71045; 71260; 72125; 72148; 72170; 74177; 80053; 80306; 80320; 83735; 85025; 85610; 85730; 86850; 86900; 86901; 90471; 90715; 93005; 93306; 93880; 96361; 96365; 96375; 96376; 99291

== ENCOUNTER → 2024-02-14 | Outpatient (CLI) | payer OTHER ==
[2024-02-14 12:26] LABS: HCT 42.4 % (37.2-46.3); HGB 13.6 g/dL (12.0-15.0); MCH 28.6 pg (27.0-32.0); MCHC 32.1 g/dL (32.0-37.0); MCV 89.1 FL (80.0-97.0); Mean Platelet Volume 10.5 FL (9.5-12.2); NRBC Per 100 WBC 0 X 10*3/uL (0.00-0.01); Platelet Count 281 X 10*3/uL (140-440); RBC 4.76 X 10*6/uL (4.10-5.20); RDW 14.6 % (11.5-14.5); WBC 7.25 X 10*3/uL (4.50-10.00)
[2024-02-14 12:50] LABS: ALT 10 U/L (8-44); AST 9 U/L (13-35); Albumin/Globulin Ratio 1.48 Ratio (1.60-3.17); Alkaline Phosphatase 130 U/L (41-126); BUN/Creat Ratio 16.88 Ratio (12.00-20.00); Blood Urea Nitrogen 13.5 mg/dL (9.0-27.0); Calcium 9.2 mg/dL (8.7-10.3); Carbon Dioxide 25.8 mmol/L (21.6-31.8); Chloride 105 mmol/L (96-109); Globulin 2.7 g/dL (1.6-3.3); Glucose 99 mg/dL (70-110); Potassium 4.4 mmol/L (3.5-5.5); Sodium 140 mmol/L (135-145); Total Bilirubin 0.4 mg/dL (0.3-1.2); Total Protein 6.7 g/dL (6.2-8.2)
[2024-02-14 14:54] LABS: INR 0.96 sec (0.93-1.11); Prothrombin Time 10.4 sec (9.9-11.9)
== END | disposition home or self-care (01) ==
LOC: LABPAT 07:04
PROVIDERS: ATTEND Orthopaedic Surgery
DX: Z01.818 Encounter for other preprocedural examination (principal); S32.031A Stable burst fracture of third lumbar vertebra, initial encounter for closed fracture; X58.XXXA Exposure to other specified factors, initial encounter; R94.31 Abnormal electrocardiogram [ECG] [EKG]
CPT/HCPCS: 80053; 82306; 85027; 85610; 86850; 86900; 86901; 87070; 93005

== ENCOUNTER → 2024-02-15 | Outpatient (CLI) | payer MEDICARE ==
[2024-02-15 14:08] VITALS: BP 164/100; PULSE 61; RESP 16
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
== END ==
LOC: PNWHC3 12:32
PROVIDERS: ATTEND Specialist
DX: S22.43XA Multiple fractures of ribs, bilateral, initial encounter for closed fracture (principal); S22.20XA Unspecified fracture of sternum, initial encounter for closed fracture; S32.039A Unspecified fracture of third lumbar vertebra, initial encounter for closed fracture; G89.29 Other chronic pain; M79.7 Fibromyalgia; F17.210 Nicotine dependence, cigarettes, uncomplicated; X58.XXXA Exposure to other specified factors, initial encounter; Z91.048 Other nonmedicinal substance allergy status; Z88.1 Allergy status to other antibiotic agents; Z88.6 Allergy status to analgesic agent; Z88.8 Allergy status to other drugs, medicaments and biological substances; Z88.5 Allergy status to narcotic agent; Z91.010 Allergy to peanuts; Z88.0 Allergy status to penicillin; Z91.012 Allergy to eggs
CPT/HCPCS: 99211

== ENCOUNTER 2024-02-24 11:05 | Inpatient (IN) | payer OTHER, MEDICARE ==
[2024-02-23 09:26] VITALS: BMI 33.5
[~2024-02-24 11:05] MED LIST changes: -DEXAMETHASONE SOD PHOSPHATE 4 MG/ML 1 ML VIAL IV ONE; -ENOXAPARIN 40 MG/0.4 ML SYRINGE SQ PRN; -HYDROmorphone 0.5 MG/0.5 ML SYRINGE IVP PRN; -ONDANSETRON 4 MG/2 ML VIAL IVP ONE; +ONDANSETRON 4 MG/2 ML VIAL IVP PRN; +TRANEXAMIC 1,000 MG/100ML-NACL 1,000 MG in SALINE 1 100ML.BAG IVPB PRN; -ceFAZolin 3 GM in SODIUM CHLORIDE 0.9% 100 ML IVPB PRN
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
[2024-02-24] MEDS: LACTATED RINGERS 1,000 ML IV SCH (12:02)
[2024-02-24] MEDS: GABAPENTIN 300 MG CAP PO PRN (12:04)
[2024-02-24] MEDS: ACETAMINOPHEN TAB 500 MG TAB PO PRN (12:04)
[2024-02-24] MEDS: DEXAMETHASONE SOD PHOSPHATE 4 MG/ML 1 ML VIAL IV ONE (12:04)
[2024-02-24] MEDS: ONDANSETRON 4 MG/2 ML VIAL IVP ONE (12:05)
[2024-02-24] MEDS ORDERED: PROPOFOL 10 MG/ML 20 ML VIAL IV ONE (12:20)
[2024-02-24] MEDS ORDERED: LABETALOL 5 MG/ML VIAL MDV ONE (12:20)
[2024-02-24] MEDS ORDERED: GLYCOPYRROLATE 0.2 MG/ML 2 ML VIAL ONE (12:20)
[2024-02-24] MEDS ORDERED: fentaNYL (PF) 50 MCG/ML 2 ML AMP ONE (12:20)
[2024-02-24] MEDS ORDERED: TRANEXAMIC 1,000 MG/100ML-NACL PREMIX BAG ONE (12:20)
[2024-02-24] MEDS ORDERED: NEOSTIGMINE 1 MG/ML 10 ML VIAL ONE (12:20)
[2024-02-24] MEDS ORDERED: KETAMINE HCL IN 0.9 % NACL 50 MG/5 ML SYRINGE ONE (12:20)
[2024-02-24] MEDS ORDERED: HYDROmorphone (PF) 1 MG/ML ONE (12:20)
[2024-02-24] MEDS ORDERED: ALBUTEROL INHALER 60 PUFF/8 GM INHALER (MHU) INHALATION ONE (12:20)
[2024-02-24] MEDS ORDERED: ePHEDrine 50 MG/ML 1 ML VIAL ONE (12:20)
[2024-02-24] MEDS ORDERED: SUCCINYLCHOLINE CHLORIDE 200 MG/10 ML VIAL IV ONE (12:20)
[2024-02-24] MEDS ORDERED: ROCURONIUM 10 MG/ML (5 ML VIAL) IV ONE (12:20)
[2024-02-24] MEDS ORDERED: MIDAZOLAM 2 MG/2 ML VIAL ONE (12:20)
[2024-02-24] MEDS ORDERED: LIDOCAINE 1% INJ 10MG/ML (20 ML MDV) ONE (12:20)
[2024-02-24] MEDS: MIDAZOLAM 2 MG/2 ML VIAL IVP ONE ×2 (12:34→12:45)
--- NOTE | 2024-02-24 12:50 | P.ANPRN ---
Procedure Note - Anesthesia - Invasive Line Right Arterial Line Time Out Performed: Yes Date of Procedure: 02/24/24 Time of Procedure: 12:37 Location of Patient: PreOp Preparation: Sterile Prep Arterial Line Location: Radial Ultrasound Used: Yes Purpose - Visualization and Identification of Vasculature: Yes Image Stored and Saved: Yes Narrative: Invasive line placement per sterile protocol utilized. Attempt X1. Initial try was by [facility] without success in left forearm.
[2024-02-24] MEDS: THROMBIN (BOVINE) 5,000 UNIT VIAL TOPICAL ONE (13:22)
[2024-02-24] MEDS: IOPAMIDOL M200 10 ML VIAL MISCELLANE ONE (13:22)
[2024-02-24] MEDS: BUPIVACAINE (PF) 0.5% 30 ML VIAL SQ ONE (14:27)
[2024-02-24] MEDS: LIDOCAINE 2%-EPI 1:100,000 20 ML VIAL SQ ONE (14:27)
[2024-02-24] MEDS ORDERED: HYDROmorphone 0.5 MG/0.5 ML SYRINGE IVP PRN (14:57)
[2024-02-24] MEDS ORDERED: HYDROcodone/APAP 10-325MG 1 EACH TAB PO PRN (14:57)
[2024-02-24] MEDS ORDERED: HYDROcodone/APAP 5-325MG 1 EACH TAB PO PRN (14:57)
[2024-02-24] MEDS ORDERED: MAGNESIUM HYDROXIDE 2,400 MG/30 ML CUP PO PRN (14:57)
[2024-02-24] MEDS: droPERidol 5 MG/2 ML VIAL IVP ONE (15:06)
[2024-02-24] MEDS ORDERED: oxyCODONE-APAP 5-325MG 1 EACH TAB PO PRN (15:08)
[2024-02-24] MEDS: HYDROmorphone 0.5 MG/0.5 ML SYRINGE IVP PRN (15:11)
[2024-02-24] MEDS: HYDROmorphone 1 MG/ML 1 ML SYRINGE IVP ONE (15:38)
[2024-02-24] MEDS: LABETALOL SYRINGE 5 MG/ML (4 ML SYR) IVP ONE (15:38)
[2024-02-24] MEDS: LACTATED RINGERS 1,000 ML IV ONE (16:03)
[2024-02-24] MEDS: oxyCODONE-APAP 10-325MG 1 EACH TAB PO PRN (16:33)
[2024-02-24] MEDS: CYCLOBENZAPRINE 5 MG TAB PO PRN (16:33)
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
[2024-02-24] MEDS: GABAPENTIN 300 MG CAP PO SCH (17:49)
[2024-02-24] MEDS: ACETAMINOPHEN TAB 325 MG TAB PO SCH (17:49)
[2024-02-24] MEDS: HYDROmorphone 1 MG/ML 1 ML SYRINGE IVP PRN (17:58)
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
[2024-02-25] MEDS: MORPHINE SULFATE 2 MG/ML SYRINGE IVP STA (05:12)
[2024-02-25] MEDS: cloNIDine HCL 0.2 MG TAB PO PRN (08:07)
[2024-02-25] MEDS: diazePAM 5 MG TAB PO SCH (08:51)
[2024-02-25 09:16] LABS: Basophils # (A) 0.01 X 10*3/uL (0.00-0.10); Basophils % (A) 0.1 %; Eosinophils # (A) 0.03 X 10*3/uL (0.04-0.35); Eosinophils % (A) 0.3 %; HCT 35.5 % (37.2-46.3); HGB 12.1 g/dL (12.0-15.0); Lymphocytes # (A) 1.69 X 10*3/uL (0.90-5.00); Lymphocytes % (A) 15.4 %; MCH 28.6 pg (27.0-32.0); MCHC 34.1 g/dL (32.0-37.0); MCV 83.9 FL (80.0-97.0); Mean Platelet Volume 10.4 FL (9.5-12.2); Monocytes # (A) 0.78 X 10*3/uL (0.20-1.00); Monocytes % (A) 7.1 %; NRBC Per 100 WBC 0 X 10*3/uL (0.00-0.01); Neutrophils # (A) 8.47 X 10*3/uL (1.80-7.70); Neutrophils % (A) 76.9 %; Platelet Count 226 X 10*3/uL (140-440); RBC 4.23 X 10*6/uL (4.10-5.20); RDW 13.7 % (11.5-14.5)
[2024-02-25 10:21] LABS: Blood Urea Nitrogen 6.3 mg/dL (9.0-27.0); Calcium 8.8 mg/dL (8.7-10.3); Carbon Dioxide 24.7 mmol/L (21.6-31.8); Chloride 103 mmol/L (96-109); Glucose 91 mg/dL (70-110); Potassium 3.6 mmol/L (3.5-5.5); Sodium 140 mmol/L (135-145)
--- NOTE | 2024-02-25 11:38 | P.PN ---
Subjective Progress Note Date: 02/25/24 Principal diagnosis: 1. L3 BURST FRACTURE AO TYPE A3 WITH PROGRESSION 2. LOW BACK PAIN, SEVERE Patient was seen at bedside this morning sitting up in chair with dressing present over her spine. Patient says she is in a lot of pain. Patient says she did walk around the room and in the bathroom and on the hallway already since surgery yesterday. Patient is wondering if she can have a pain pump instead of the current medication. Patient does not seem to be writhing in pain while sitting in chair. Patient would like to stay another night for additional pain control. Patient says most of the pain is in the low back with radiation to the legs to about the level of the knee. Patient says she has urinated since surgery yesterday. Patient says she has not had a bowel movement yet. Patient denies chest pain, fever, shortness of breath, nausea, vomiting, change in visi on, loss of bowel/bladder control. Objective - Vital Signs Vital signs: Vital Signs Temp 98.1 F 02/25/24 07:12 Pulse 78 02/25/24 07:50 Resp 20 02/25/24 07:50 BP 167/96 02/25/24 07:12 Pulse Ox 95 02/25/24 07:12 FiO2 Intake & Output 02/24/24 02/25/24 02/25/24 18:59 06:59 18:59 Intake Total 0 340 Output Total 150 Balance 1900 340 Weight 88.451 kg Intake: IV 2049 Intake, IV Titration 340 Amount Lactated Ringers 1,000 ml 240 @ 20 mls/hr IV .Q24H FAITH Rx#:[id number] ceFAZolin 2 gm In Sodium 100 Chloride 0.9% 50 ml @ 100 mls/hr IVPB Q8H FAITH Rx#: [id number] Output: Estimated Blood Loss 150 Other: Voiding Method Toilet Toilet # Voids 2 8 - Exam Dressings appear to be clean, dry, intact on the lumbar spine. Delvis are well aligned and intact. Sensation is equal, symmetric, bilateral intact. Patient has good range of motion throughout the bilateral upper extremities on exam. Patient does have some limited range of motion in the bilateral hips in flexion and extension secondary to referred stiffness and pain in the low back. Patient has full range of motion throughout bilateral knees and ankles on exam. 4/5 in all major motor groups in bilateral upper extremities. 4-/5 in resisted bilateral hip flexion extension and knee flexion extension. Cap refill under 3 seconds in digits of upper extremities. Radial pulse intact, 2+ bilaterally. Negative Homans bilaterally. Negative clonus bilaterally. Negative Tato bilaterally. - Labs CBC & Chem 7: 02/25/24 05:51 02/25/24 05:51 Labs: Abnormal Lab Results - Last 24 Hours (Table) 02/25/24 02/25/24 Range/Units 05:51 05:51 WBC 11.00 H (4.50-10.00) X 10*3/uL Hct 35.5 L (37.2-46.3) % Neutrophils # 8.47 H (1.80-7.70) X 10*3/uL Eosinophils # 0.03 L (0.04-0.35) X 10*3/uL Anion Gap 12.30 H (4.00-12.00) mmol/L BUN 6.3 L (9.0-27.0) mg/dL Creatinine 0.5 L (0.6-1.5) mg/dL Assessment and Plan Assessment: 1. L3 BURST FRACTURE AO TYPE A3 WITH PROGRESSION 2. LOW BACK PAIN, SEVERE -Postop day 1 status post open treatment of L3 burst fracture; L2-L4 posterolateral interbody fusion Plan: 1. L3 BURST FRACTURE AO TYPE A3 WITH PROGRESSION; LOW BACK PAIN, SEVERE -surgery was performed yesterday, 02/24/2024 open treatment of L3 burst fracture; L2-L4 posterolateral interbody fusion. Patient stable at bedside this morning. Dressings appear to be clean, dry, intact. Assess dressings daily. Work with therapy daily. Brace on while up and about. Walker as needed. We will keep patient 1 more night for additional pain control and therapy. Add Oxy IR 5 mg for pain level 7 to 10. plan for discharge home tomorrow versus Tuesday. 2. Appreciate medical management 3. Pain management -Oxy IR 5 mg and Percocet 10 mg / 325 mg; gabapentin 4. DVT prophylaxis -mechanical 5. GI prophylaxis -senna 6. PT/OT -weightbearing as tolerated with walker and brace on while up and ab out 7. Encourage incentive spirometer use 8. Discharge planning -plan for discharge home tomorrow versus Tuesday Time with Patient: Less than 30
[2024-02-25] MEDS: oxyCODONE-APAP 10-325MG 1 EACH TAB PO PRN (16:47)
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
[2024-02-25] MEDS: SERTRALINE 100 MG TAB PO SCH (19:54)
[2024-02-25] MEDS: ARIPiprazole 10 MG TAB PO SCH (21:05)
[2024-02-26] MEDS: SENNOSIDES-DOCUSATE SODIUM 1 EACH TAB PO PRN (01:16)
--- NOTE | 2024-02-26 10:55 | FL ---
EXAMINATION TYPE: FL guidance operating room, XR lumbar spine 2 or 3V Intraoperative/procedural fluor oscopic services were provided. Total fluoroscopy time is 58 seconds with a total of 17 submitted im ages to PACS. Please see the operative/procedural note for further details. DAP: [id number] cGycm2
--- NOTE | 2024-02-26 13:55 | P.PN ---
Subjective Progress Note Date: 02/26/24 Principal diagnosis: 1. L3 BURST FRACTURE AO TYPE A3 WITH PROGRESSION 2. LOW BACK PAIN, SEVERE Patient was seen this afternoon walking down the [place] with spouse present prior to sitting on the edge of the bed. Patient says she is still in a lot of intense pain especially in the legs. Patient is wondering if she can have stronger pain medication to help with pain. Patient does not seem to be writhing in pain during the encounter. Patient says she has urinated several times since surgery without issue. Patient says no bowel movement yet, however, patient has been passing gas. Patient denies chest pain, fever, shortness of breath, nausea, and, change in vision, loss of bowel/bladder control. Objective - Vital Signs Vital signs: Vital Signs Temp 98.1 F 02/26/24 07:41 Pulse 84 02/26/24 08:00 Resp 20 02/26/24 08:00 BP 132/74 02/26/24 07:41 Pulse Ox 97 02/26/24 07:41 FiO2 Intake & Output 02/25/24 02/26/24 02/26/24 18:59 06:59 18:59 Intake Total 810 Balance 810 Intake: Intake, IV Titration 160 Amount Lactated Ringers 1,000 ml 160 @ 20 mls/hr IV .Q24H [facility] Rx#:[id number] Oral 650 Other: Voiding Method Toilet Toilet # Voids 5 2 - Exam Dressings appear to be clean, dry, intact on the lumbar spine. [place] are well aligned and intact. Sensation is equal, symmetric, bilateral intact. Patient has good range of motion throughout the bilateral upper extremities on exam. Patient does have some limited range of motion in the bilateral hips in flexion and extension secondary to referred stiffness and pain in the low back. Patient has full range of motion throughout bilateral knees and ankles on exam. 4/5 in all major motor groups in bilateral upper extremities. 4-/5 in resisted bilateral hip flexion extension and knee flexion extension. Cap refill under 3 seconds in digits of upper extremities. Radial pulse intact, 2+ bilaterally. Negative Homans bilaterally. Negative clonus bilaterally. Negative Tato bilaterally. - Labs CBC & Chem 7: 02/25/24 05:51 02/25/24 05:51 Assessment and Plan Assessment: 1. L3 BURST FRACTURE AO TYPE A3 WITH PROGRESSION 2. LOW BACK PAIN, SEVERE -Postop day 2 status post open treatment of L3 burst fracture; L2-L4 postero lateral interbody fusion Plan: 1. L3 BURST FRACTURE AO TYPE A3 WITH PROGRESSION; LOW BACK PAIN, SEVERE -surgery was performed 02/24/2024 open treatment of L3 burst fracture; L2-L4 posterolateral interbody fusion. Patient stable at bedside this morning. Dressings appear to be clean, dry, intact. Assess dressings daily. Work with therapy daily. Brace on while up and about. Walker as needed. We will keep patient 1 more night for additional pain control and therapy. plan for discharge home tomorrow. 2. Appreciate medical management 3. Pain management -Oxy IR 5 mg and Percocet 10 mg / 325 mg; gabapentin 4. DVT prophylaxis -mechanical 5. GI prophylaxis -senna 6. PT/OT -weightbearing as tolerated with walker and brace on while up and about 7. Encourage incentive spirometer use 8. Discharge planning -plan for discharge home tomorrow Time with Patient: Less than 30
[2024-02-26] MEDS: CYCLOBENZAPRINE 10 MG TAB PO PRN (14:06)
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
[2024-02-26] MEDS ORDERED: ONDANSETRON 4 MG/2 ML VIAL IVP PRN (21:05)
--- NOTE | 2024-02-27 08:03 | P.PN ---
Subjective Progress Note Date: 02/27/24 Principal diagnosis: 1. L3 burst fracture, AO type A4 2. Severe Low back pain due to fracture and injury 3. Right lower extremity weakness with radiculopathy 4. Perinal numbness, intermittent 5. New onset Bowel and bladder issues, intermittent Patient seen and examined this morning. Patient is resting comfortably in bed. Patient reports moderate lumbar pain that radiates into her bilateral lower extremities. Patient has continued to receive IV medication for pain management. Patient states she does not believe that her pain is being managed at this time. Medications have been revised. Patient does report that she has been up and ambulatory with walker within room and hallway. Patient reports she did shower last night. Patient does have a heating pad present that is resting on her bilateral thighs and buttock. Instructed patient that there is to be no heat applied to surgical incisions. Patient verbalizes understanding. Surgical incisions are well-approximated with yadiel intact. No active drainage, dressings are clean dry and intact. Informed patient that we will reassess her pain level this afternoon and anticipate discharge home. Objective - Vital Signs Vital signs: Vital Signs Temp 98.2 F 02/27/24 01:48 Pulse 78 02/27/24 01:48 Resp 17 02/27/24 01:48 BP 160/99 02/27/24 01:48 Pulse Ox 96 02/27/24 01:48 FiO2 Intake & Output 02/26/24 02/27/24 02/27/24 18:59 06:59 18:59 Intake Total 700 Balance 700 Intake: Oral 700 Other: Voiding Method Toilet # Voids 3 4 - Exam Physical Examination General: The patient is awake and alert, in no acute distress Skin: Skin is warm and dry with no obvious rashes or lesions. Surgical incisions to the lumbar spine, edges are well-approximated with yadiel intact. No active drainage, dressings are clean dry and intact. Eye: Pupils are equal, round and reactive to light, extra-ocular movements are intact; there is normal conjunctiva bilaterally. Neck: The neck is supple, there is no tenderness and ROM intact. Respiratory: Respirations are non-labored, breath sounds are equal. Gastrointestinal: Soft, non-distended, non-tender abdomen. Back: There is no tenderness to palpation in the midline, paralumbar, parathoracic or buttocks region. There is no obvious deformity . Musculoskeletal: ROM limited secondary to pain and stiffness from surgical p rocedure. Muscle strength in all major muscle groups of bilateral upper extremities 5/5, bilateral lower extremities 4/5. Neurological: CN 2-12 intact. There are no obvious motor or sensory deficits. Movement and coordination equal and intact. Sensory exam to light touch intact C5-T1 and intact from L2-S1. Reflexes 2/4 in bilateral upper and lower extremities. Negative Hoffmans, babinski, and clonus signs. Psychiatric: Cooperative, appropriate mood & affect, normal judgment. - Labs CBC & Chem 7: 02/25/24 05:51 02/25/24 05:51 Assessment and Plan Assessment: Postop day 3: Open internal fixation of L3 burst fracture with L2-L4 PLIF 1. L3 burst fracture, AO type A4 2. Severe Low back pain due to fracture and injury 3. Right lower extremity weakness with radiculopathy 4. Perinal numbness, intermittent 5. New onset Bowel and bladder issues, intermittent Plan: -Appreciate senior environmental consultant and team management. -Activity: Ambulate QID, OOB all meals, up and about, limit lifting bending twisting to less than 5 lbs. Use walker or cane if needed for stability. -Daily PT/OT, increase ambulation strength and balance. -Brace when up and about, not needed in bed or chair -Pain control: Medications have been revised -Meds: reviewed -GI ppx: senna, MOM -DVT PPX: heparin -Hygiene: Shower today. Maintain dressing clean and dry. Meticulous cleaning after BMs away from the incision site -Encourage IS 10x/hr -Dispo: Anticipate discharge home later today *I reviewed and discussed this case with my attending Dr. Sierra, whom has reviewed this chart and films and is in agreement with assessment and plan of care as outlined above. I have personally seen and examined the patient, performed the documentation and the assessment and plan as written. Number of minutes spent on the visit: 30m.
[2024-02-27] MEDS: DEXAMETHASONE SOD PHOSPHATE 10 MG/ML 1 ML VIAL IVP STA (08:20)
[2024-02-27] MEDS: traMADol 50 MG TAB PO SCH (08:22)
[2024-02-27] MEDS: SENNOSIDES-DOCUSATE SODIUM 1 EACH TAB PO SCH (08:22)
[2024-02-27 08:30] VITALS: RESP 19; TEMP 97.7
[2024-02-27] MEDS: CYCLOBENZAPRINE 10 MG TAB PO SCH (11:17)
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
[2024-02-27 14:36] VITALS: BP 130/82; PULSE 113
== END 2024-02-27 14:36 | disposition home or self-care (01) | DRG 455 ==
LOC: 2ORMAIN 11:05 → EDSTATUS 12:30 → 4SSUR 15:13
PROVIDERS: ADMIT Orthopaedic Surgery; ATTEND Orthopaedic Surgery
PROC: 0SG1071 Fusion of 2 or more Lumbar Vertebral Joints with Autologous Tissue Substitute, Posterior Approach, Posterior Column, Open Approach (ICD-10-PCS; 2024-02-24)
PROC: 0QS004Z Reposition Lumbar Vertebra with Internal Fixation Device, Open Approach (ICD-10-PCS; 2024-02-24)
PROC: XNU0356 Supplement Lumbar Vertebra with Mechanically Expandable (Paired) Synthetic Substitute, Percutaneous Approach, New Technology Group 6 (ICD-10-PCS; 2024-02-24)
PROC: 8E0WXBZ Computer Assisted Procedure of Trunk Region (ICD-10-PCS; 2024-02-24)
PROC: 0SG10AJ Fusion of 2 or more Lumbar Vertebral Joints with Interbody Fusion Device, Posterior Approach, Anterior Column, Open Approach (ICD-10-PCS; principal; 2024-02-24 12:30)
DX: S32.031A Stable burst fracture of third lumbar vertebra, initial encounter for closed fracture (principal); M79.7 Fibromyalgia; R03.0 Elevated blood-pressure reading, without diagnosis of hypertension; G89.18 Other acute postprocedural pain; Y92.410 Unspecified street and highway as the place of occurrence of the external cause; V49.9XXA Car occupant (driver) (passenger) injured in unspecified traffic accident, initial encounter; Z87.891 Personal history of nicotine dependence; Z98.84 Bariatric surgery status; Z79.899 Other long term (current) drug therapy
CPT/HCPCS: 72100; 72131; 80048; 81025; 85025

== ENCOUNTER 2024-05-31 09:40 | Emergency (ER) | payer BC, MEDICARE ==
--- NOTE | 2024-05-31 09:53 | ED ---
Abdominal Pain HPI - General Source: patient, RN notes reviewed Mode of arrival: ambulatory Limitations: no limitations <Dahlia Mejia - Last Filed: 05/31/24 09:52> - General Source: patient, RN notes reviewed Mode of arrival: ambulatory Limitations: no limitations <Sonny Prado - Last Filed: 05/31/24 15:26> - General Chief Complaint: Abdominal Pain Stated Complaint: kidney stone Time Seen by Provider: 05/31/24 09:52 - History of Present Illness Initial Comments: Quick Note: This is a 38-year-old female who presents to the emergency department for concerns of a kidney stone. States that starting last night she developed right flank pain radiating into the right groin. She has associated nausea/vomiting and hematuria. States that this felt like the last time she had a kidney stone a few years ago. Denies any fevers or chills. (Dahlia Mejia) Patient is a 38-year-old female present to the emergency department with concern for kidney stone. Patient does have history of this previously and previously he has seen Dr. Gardner for this. Patient has discomfort right flank. Patient did have some nausea and vomiting. Discomfort has improved at this time however not resolved. No fevers. (Sonny Prado) - Related Data Home Medications Medication Instructions Recorded Confirmed ARIPiprazole [Abilify] 10 mg PO HS 02/01/24 02/24/24 Sertraline [Zoloft] 150 mg PO HS 02/01/24 02/24/24 norethindrone-e.estradioL-iron 1 tab PO DAILY 02/01/24 02/24/24 [Aurovela Fe 1.5 mg-30 Mcg Tab] diazePAM [Valium] 5 mg PO DAILY 02/23/24 02/24/24 traMADol HCl [Ultram] 50 mg PO Q6H PRN 02/23/24 02/24/24 Previous Rx's Medication Instructions Recorded Gabapentin 800 mg PO TID #90 tab 02/27/24 Sennosides/Docusate Sodium [Senna 1 each PO DAILY PRN #20 tablet 02/27/24 Plus 8.6-50 mg Tablet] Sulfamethox-Tmp 800-160Mg [Bactrim 1 tab PO Q12HR #10 tab 02/27/24 DS 800-160 mg] oxyCODONE HCL [OxyIR] 5 mg PO Q4-6H PRN #28 tab 02/27/24 predniSONE 10 mg PO BID #10 tab 02/27/24 traMADol HCl [Ultram] 50 mg PO Q4-6H PRN #40 tab 02/27/24 Cephalexin [Keflex] 500 mg PO QID #40 cap 05/31/24 Allergies Allergy/AdvReac Type Severity Reaction Status Date / Time adhesive Allergy Rash/Hives Verified 05/31/24 10:05 ciprofloxacin [From Cipro] Allergy Rash/Hives Verified 05/31/24 10:05 ciprofloxacin HCl Allergy Rash/Hives Verified 05/31/24 10:05 [From Cipro] egg Allergy Unknown Verified 05/31/24 10:05 ibuprofen [From Motrin] Allergy Rash/Hives Verified 05/31/24 10:05 ketorolac tromethamine Allergy Rash/Hives Verified 05/31/24 10:05 [From Toradol] morphine Allergy Rash/Hives Verified 05/31/24 10:05 peanut Allergy Unknown Verified 05/31/24 10:05 Penicillins Allergy Rash/Hives Verified 05/31/24 10:05 Review of Systems ROS Other: All systems not noted in ROS Statement are negative. <Dahlia Mejia - Last Filed: 05/31/24 09:52> ROS Other: All systems not noted in ROS Statement are negative. Constitutional: Denies: fever Eyes: Denies: eye pain ENT: Denies: ear pain Respiratory: Denies: cough Cardiovascular: Denies: chest pain Endocrine: Denies: fatigue Gastrointestinal: Reports: as per HPI Musculoskeletal: Reports: as per HPI Skin: Denies: rash <Sonny Prado - Last Filed: 05/31/24 15:26> ROS Statement: Those systems with pertinent positive or pertinent negative responses have been documented in the HPI. Past Medical History Past Medical History: Asthma, Fibromyalgia, GERD/Reflux, Osteoarthritis (OA), Sleep Apnea/CPAP/BIPAP Additional Past Medical History / Comment(s): Migraines, kidney stones, back and neck pain, HAROON CTS, PCOS, varicose veins, hypersomnia, no cpap used, hx ulcer, gout, HERNIATED DISCS History of Any Multi-Drug Resistant Organisms: None Reported, ESBL Date of last positivie culture/infection: 10/06/23 MDRO Source:: Urine Past Surgical History: Appendectomy, Bariatric Surgery, Cholecystectomy Additional Past Surgical History / Comment(s): Cyst removed left ovary w/reconstruction, Sinus surgery, Rt ovarian cyst removed, oral surgery, Lithotripsy, ESWL -unsuccessful treatment left ureteral calculus, cystoscopy w/double J catheter placement, Sleeve Gastrectomy 07-19-22 Past Anesthesia/Blood Transfusion Reactions: Previous Problems w/ Anesthesia Additional Past Anesthesia/Blood Transfusion Reaction / Comment(s): bronchospasm with surgery at [facility] 04/2017, no problems after that Past Psychological History: Anxiety, Depression Additional Psychological History / Comment(s): . Smoking Status: Former smoker Past Alcohol Use History: None Reported Additional Past Alcohol Use History / Comment(s): has smoked since age 26, smoked< 1/2 PPD, quit fall 2021 Past Drug Use History: Marijuana Additional Drug Use History / Comment(s): MARIJUANA ON OCCASION FOR SEVERE PAIN- INSTRUCTED TO REFRAIN FROM USE FOR AT LEAST 24 HOURS PRIOR TO PROCEDURE - Past Family History Mother Family Medical History: Cancer, Coronary Artery Disease (CAD) <Dahlia Mejia - Last Filed: 05/31/24 09:52> General Exam <Dahlia Mejia - Last Filed: 05/31/24 09:52> Limitations: no limitations General appearance: alert, in no apparent distress Head exam: Present: normocephalic Eye exam: Present: normal appearance Neck exam: Present: normal inspection Respiratory exam: Present: normal lung sounds bilaterally Cardiovascular Exam: Present: regular rate, normal rhythm GI/Abdominal exam: Present: soft, tenderness (Minimal tenderness right flank). Absent: distended Extremities exam: Present: normal inspection Back exam: Present: CVA tenderness (R) Neurological exam: Present: alert Psychiatric exam: Present: normal affect, normal mood Skin exam: Present: normal color <Sonny Prado - Last Filed: 05/31/24 15:26> - General Exam Comments Initial Comments: Visual Physical Exam Vital signs reviewed General: Well-appearing, nontoxic, no acute distress. Head: Normocephalic, atraumatic Eyes: PERRLA, EOMI ENT: Airway patent Chest: Nonlabored breathing Skin: No visual rash, normal skin tone Neuro: Alert and oriented 3 Musculoskeletal: No gross abnormalities (Dahlia Mejia) Course Vital Signs 05/31/24 05/31/24 10:01 14:06 Temperature 97.7 F 97.6 F Pulse Rate 61 54 L Respiratory 20 18 Rate Blood Pressure 132/80 116/68 O2 Sat by Pulse 95 96 Oximetry Medical Decision Making <Dahlia Mejia - Last Filed: 05/31/24 09:52> - Lab Data Result diagrams: 05/31/24 10:07 05/31/24 10:07 <Sonny Prado - Last Filed: 05/31/24 15:26> - Medical Decision Making I performed the QuickNote portion of this chart. Signed Dahlia Mejia PA-C. (Dahlia Mejia) Was pt. sent in by a medical professional or institution ([facility] Ruth, RESTAURANT SERVICE MANAGER, urgent care, hospital, or prison...) When possible be specific @ -No Did you speak to anyone other than the patient for history (EMS, parent, family, police, friend...)? What history was obtained from this source @ -No Did you review nursing and triage notes (agree or disagree)? Why? @ -I reviewed and agree with nursing and triage notes Were old charts reviewed (outside hosp., previous admission, EMS record, old EKG, old radiological studies, urgent care reports/EKG's, prison records)? Report findings @ -No old charts were reviewed Differential Diagnosis (chest pain, altered mental status, abdominal pain women, abdominal pain men, vaginal bleeding, weakness, fever, dyspnea, syncope, headache, dizziness, GI bleed, back pain, seizure, CVA, palpatations, mental health, musculoskeletal)? @ -Differential Abdominal Pain Women: Appendicitis, Cholecystitis, diverticulosis, ischemic bowel, pancreatitis, hepatitis, UTI, gastroenteritis, AAA, incarcerated hernia, bowel obstruction, constipation, inflammatory bowel, hepatitis, peptic ulcer disease, splenic infarction, perforated viscus, vulvitis, ovarian torsion, PID, kidney stone, p lacenta abruption, this is not meant to be an all-inclusive list EKG interpreted by me (3pts min.). @ -As above X-rays interpreted by me (1pt min.). @ -None done CT interpreted by me (1pt min.). @ -CT scan abdomen pelvis does show kidney stone right proximal ureter 7.4 mm with hydro U/S interpreted by me (1pt. min.). @ -None done What testing was considered but not performed or refused? (CT, X-rays, U/S, labs)? Why? @ -None What meds were considered but not given or refused? Why? @ -None Did you discuss the management of the patient with other professionals (professionals i.e. , PA, RESTAURANT SERVICE MANAGER, lab, RT, psych nurse, bilingual social worker, sales negotiator, teacher, correction officer city or county jail, shoe parts caser)? Give summary @ -Case discussed with Dr. oliver who is comfortable with discharge and follow- up in the office. He agrees with antibiotics Was smoking cessation discussed for >3mins.? @ -No Was critical care preformed (if so, how long)? @ -No Were there social determinants of health that impacted care today? How? (Homelessness, low income, unemployed, alcoholism, drug addiction, transportation, low edu. Level, literacy, decrease access to med. care, residential, rehab)? @ -No Was there de-escalation of care discussed even if they declined (Discuss DNR or withdrawal of care, Hospice)? DNR status @ -No What co-morbidities impacted this encounter? (DM, HTN, Smoking, COPD, CAD, Cancer, CVA, ARF, Chemo, Hep., AIDS, mental health diagnosis, sleep apnea, morbid obesity)? @ -None Was patient admitted / discharged? Hospital course, mention meds given and route, prescriptions, significant lab abnormalities, going to OR and other pertinent info. @ -Patient presents with symptoms similar to her previous kidney stone. Symptoms improved upon my original evaluation. On reevaluation, patient is still comfortable. Patient is updated. Patient will be discharged with follow- up with urology. Undiagnosed new problem with uncertain prognosis? @ -No Drug Therapy requiring intensive monitoring for toxicity (Heparin, Nitro, Insulin, Cardizem)? @ -No Were any procedures done? @ -No Diagnosis/symptom? @ -Kidney stone Acute, or Chronic, or Acute on Chronic? @ -Acute Uncomplicated (without systemic symptoms) or Complicated (systemic symptoms)? @ -D complicated with possible urinary tract infect Side effects of treatment? @ -No Exacerbation, Progression, or Severe Exacerbation? @ -No Poses a threat to life or bodily function? How? (Chest pain, [place], [place], pneumonia, PE, COPD, DKA, ARF, appy, cholecystitis, CVA, Diverticulitis, Homicidal, Suicidal, threat to staff... and all critical care pts) @ -No (Sonny Prado) - Lab Data Lab Results 05/31/24 05/31/24 05/31/24 Range/Units 10:07 10:07 10:07 WBC 10.0 (3.8-10.6) k/uL RBC 5.31 (3.80-5.40) m/uL Hgb 15.0 (11.4-16.0) gm/dL Hct 44.7 (34.0-46.0) % MCV 84.3 (80.0-100.0) fL MCH 28.2 (25.0-35.0) pg MCHC 33.5 (31.0-37.0) g/dL RDW 13.7 (11.5-15.5) % Plt Count 198 (150-450) k/uL MPV 8.1 Neutrophils % 87 % Lymphocytes % 8 % Monocytes % 3 % Eosinophils % 1 % Basophils % 0 % Neutrophils # 8.7 H (1.3-7.7) k/uL Lymphocytes # 0.8 L (1.0-4.8) k/uL Monocytes # 0.3 (0-1.0) k/uL Eosinophils # 0.1 (0-0.7) k/uL Basophils # 0.0 (0-0.2) k/uL Sodium (137-145) mmol/L Potassium (3.5-5.1) mmol/L Chloride (98-107) mmol/L Carbon Dioxide (22-30) mmol/L Anion Gap mmol/L BUN (7-17) mg/dL Creatinine (0.52-1.04) mg/dL Est GFR (CKD-EPI)AfAm (>60 ml/min/1.73 sqM) Est GFR (CKD-EPI)NonAf (>60 ml/min/1.73 sqM) Glucose (74-99) mg/dL Plasma Lactic Acid Micha (0.7-2.0) mmol/L Calcium (8.4-10.2) mg/dL Total Bilirubin (0.2-1.3) mg/dL AST (14-36) U/L ALT (4-34) U/L Alkaline Phosphatase (38-126) U/L Total Protein (6.3-8.2) g/dL Albumin (3.5-5.0) g/dL Urine Color Red Urine Appearance Cloudy H (Clear) Urine pH 6.5 (5.0-8.0) Ur Specific [place] 1.021 (1.001-1.035) Urine Protein 1+ H (Negative) Urine Glucose (UA) Negative (Negative) Urine Ketones Negative (Negative) Urine Blood Large H (Negative) Urine Nitrite Negative (Negative) Urine Bilirubin Negative (Negative) Urine Urobilinogen <2.0 (<2.0) mg/dL Ur Leukocyte Esterase Moderate H (Negative) Urine RBC >182 H (0-5) /hpf Urine WBC 58 H (0-5) /hpf Urine Mucus Many H (None) /hpf Urine Yeast (Budding) Many H (None) /hpf Urine HCG, Qual Not Detected (Not Detectd) 05/31/24 05/31/24 Range/Units 10:07 10:07 WBC (3.8-10.6) k/uL RBC (3.80-5.40) m/uL Hgb (11.4-16.0) gm/dL Hct (34.0-46.0) % MCV (80.0-100.0) fL MCH (25.0-35.0) pg MCHC (31.0-37.0) g/dL RDW (11.5-15.5) % Plt Count (150-450) k/uL MPV Neutrophils % % Lymphocytes % % Monocytes % % Eosinophils % % Basophils % % Neutrophils # (1.3-7.7) k/uL Lymphocytes # (1.0-4.8) k/uL Monocytes # (0-1.0) k/uL Eosinophils # (0-0.7) k/uL Basophils # (0-0.2) k/uL Sodium 138 (137-145) mmol/L Potassium 3.7 (3.5-5.1) mmol/L Chloride 105 (98-107) mmol/L Carbon Dioxide 26 (22-30) mmol/L Anion Gap 7 mmol/L BUN 16 (7-17) mg/dL Creatinine 0.95 (0.52-1.04) mg/dL Est GFR (CKD-EPI)AfAm 89 (>60 ml/min/1.73 sqM) Est GFR (CKD-EPI)NonAf 77 (>60 ml/min/1.73 sqM) Glucose 107 H (74-99) mg/dL Plasma Lactic Acid Micha 0.7 (0.7-2.0) mmol/L Calcium 9.4 (8.4-10.2) mg/dL Total Bilirubin 1.3 (0.2-1.3) mg/dL AST 25 (14-36) U/L ALT 15 (4-34) U/L Alkaline Phosphatase 61 (38-126) U/L Total Protein 6.9 (6.3-8.2) g/dL Albumin 4.3 (3.5-5.0) g/dL Urine Color Urine Appearance (Clear) Urine pH (5.0-8.0) Ur Specific [place] (1.001-1.035) Urine Protein (Negative) Urine Glucose (UA) (Negative) Urine Ketones (Negative) Urine Blood (Negative) Urine Nitrite (Negative) Urine Bilirubin (Negative) Urine Urobilinogen (<2.0) mg/dL Ur Leukocyte Esterase (Negative) Urine RBC (0-5) /hpf Urine WBC (0-5) /hpf Urine Mucus (None) /hpf Urine Yeast (Budding) (None) /hpf Urine HCG, Qual (Not Detectd) Disposition <Dahlia Mejia - Last Filed: 05/31/24 09:52> Is patient prescribed a controlled substance at d/c from ED?: No Time of Disposition: 15:25 <Sonny Prado - Last Filed: 05/31/24 15:26> Clinical Impression: Kidney stone Disposition: HOME SELF-CARE Condition: Stable Instructions (If sedation given, give patient instructions): Urinary Tract Infection in Women (ED), Kidney Stones (ED) Additional Instructions: Please do follow-up with urology in the next couple days for recheck, number provided. Return for fever, uncontrolled vomiting, uncontrolled pain, worsening or changing symptoms or any other concerns. Prescription for antibiotics has been sent to pharmacy Prescriptions: Cephalexin [Keflex] 500 mg PO QID #40 cap Referrals: Pedro Joe DO [Primary Care Provider] - 1-2 days Bethel Platt MD [STAFF PHYSICIAN] - 1-2 days
--- NOTE | 2024-05-31 10:44 | CT ---
EXAMINATION TYPE: CT abdomen pelvis wo con DATE OF EXAM: 05/31/2024 HISTORY: RT side flank pain. Hx kidney issues, jey, appy, ovarian cysts. CT DLP: 829.9 mGycm. Automated Exposure Control for Dose Reduction was Utilized. TECHNIQUE: CT scan of the abdomen and pelvis is performed without oral or IV contrast. COMPARISON: 01/02/2023 Findings: There is a 4.8 mm nodule in the left lower lobe. There is no airspace consolidation or pleural effusi on. There is surgical absence of the gallbladder. There is no biliary ductal dilatation. There is no organomegaly of the liver, pancreas, spleen or adrenal glands. There is moderate to marked right-sided hydronephrosis secondary to an obstructing 7.4 mm calcificati on in the proximal right ureter. A smaller stone was seen in the similar location in the proximal rig ht ureter on the prior study but has grown in the interval or is a second obstructing calculus. There is a nonobstructing 3 to 4 mm calcification in the lower pole of the right kidney. There is a large 6.3 cm cyst of the left kidney with a 7 mm calcification and milk of calcium calcifi cations layering in the dependent portion of the cyst. There is no left-sided hydronephrosis. The caliber of the abdominal aorta is normal and there is no retroperitoneal adenopathy or hemorrhage . The bowel loops are normal in caliber is no evidence of obstruction. No inflammatory changes are iden tified in the mesentery and there is no free intraperitoneal air or fluid. There is a stable 3 cm mass in the region of the left adnexa likely representing a ovarian cyst. Patrick elate with ultrasound if clinically indicated. The osseous structures and soft tissues are unremarkable. IMPRESSION: Moderate to marked right hydronephrosis secondary to a 7.4 mm obstructing calculus in the proximal ri ght ureter as described above.
[2024-05-31 11:22] LABS: Basophils % (A) 0 %; Eosinophils # (A) 0.1 k/uL (0-0.7); Eosinophils % (A) 1 %; HCT 44.7 % (34.0-46.0); Lymphocytes # (A) 0.8 k/uL (1.0-4.8); Lymphocytes % (A) 8 %; MCH 28.2 pg (25.0-35.0); MCHC 33.5 g/dL (31.0-37.0); MCV 84.3 fL (80.0-100.0); Mean Platelet Volume 8.1; Monocytes # (A) 0.3 k/uL (0-1.0); Monocytes % (A) 3 %; Neutrophils # (A) 8.7 k/uL (1.3-7.7); Neutrophils % (A) 87 %; Platelet Count 198 k/uL (150-450); RBC 5.31 m/uL (3.80-5.40); RDW 13.7 % (11.5-15.5)
[2024-05-31 11:31] LABS: ALT 15 U/L (4-34); AST 25 U/L (14-36); African American GFR (CKD) 89 (>60 ml/min/1.73 sqM); Albumin 4.3 g/dL (3.5-5.0); Alkaline Phosphatase 61 U/L (38-126); Anion Gap 7 mmol/L; Blood Urea Nitrogen 16 mg/dL (7-17); Calcium 9.4 mg/dL (8.4-10.2); Carbon Dioxide 26 mmol/L (22-30); Chloride 105 mmol/L (98-107); Glucose 107 mg/dL (74-99); Non-African American GFR(CKD) 77 (>60 ml/min/1.73 sqM); Potassium 3.7 mmol/L (3.5-5.1); Sodium 138 mmol/L (137-145); Total Bilirubin 1.3 mg/dL (0.2-1.3); Total Protein 6.9 g/dL (6.3-8.2)
[2024-05-31 13:24] LABS: Appearance,Urine Cloudy (Clear); Bilirubin,Urine Negative (Negative); Blood,Urine Large (Negative); Budding Yeast,Urine Many /hpf; Color,Urine Red; Glucose,Urine (UA) Negative (Negative); Ketones,Urine Negative (Negative); Leukocyte Esterase,Urine Moderate (Negative); Mucus,Urine Many /hpf; Nitrite,Urine Negative (Negative); PH, Urine 6.5 (5.0-8.0); Protein,Urine 1+ (Negative); RBC,Urine >182 /hpf (0-5); Specific Gravity,Urine 1.021 (1.001-1.035); Urobilinogen,Urine <2.0 mg/dL (<2.0); WBC,Urine 58 /hpf (0-5)
[2024-05-31 14:07] VITALS: RESP 18
[2024-05-31] MEDS: HYDROmorphone 1 MG/ML 1 ML SYRINGE IVP STA (14:12)
[2024-05-31] MEDS: ONDANSETRON 4 MG/2 ML VIAL IVP STA (16:12)
[2024-05-31 16:18] VITALS: BP 179/95; PULSE 70; TEMP 97.7
== END 2024-05-31 16:18 | disposition home or self-care (01) ==
LOC: EC 09:40
DX: N13.2 Hydronephrosis with renal and ureteral calculous obstruction (principal); Z91.09 Other allergy status, other than to drugs and biological substances; Z88.1 Allergy status to other antibiotic agents; Z88.6 Allergy status to analgesic agent; Z88.5 Allergy status to narcotic agent; Z91.010 Allergy to peanuts; Z88.0 Allergy status to penicillin; Z91.012 Allergy to eggs; Z87.891 Personal history of nicotine dependence; Z90.49 Acquired absence of other specified parts of digestive tract
CPT/HCPCS: 36415; 80053; 83605; 85025; 81001; 81025; 87086; 74176; 99284; 96374; 96375; J2405; J1170

== ENCOUNTER → 2024-06-13 | Outpatient (CLI) | payer BC, MEDICARE | END | disposition home or self-care (01) | LOC: LABPRL 10:18 | PROVIDERS: ATTEND Physician Assistant Medical | DX: I10 Essential (primary) hypertension (principal); F33.0 Major depressive disorder, recurrent, mild; E66.9 Obesity, unspecified; M79.7 Fibromyalgia | CPT/HCPCS: 80053; 80061; 84443; 85025 ==

== ENCOUNTER 2024-09-15 22:14 | Emergency (ER) | payer MEDICARE ==
[2024-09-15 22:34] VITALS: RESP 18
--- NOTE | 2024-09-15 22:47 | ED ---
Animal Bite HPI - General Source: patient, RN notes reviewed Mode of arrival: ambulatory Limitations: no limitations <Myranda Aguiar - Last Filed: 09/15/24 22:44> <Eyal Calderon - Last Filed: 09/16/24 02:00> - General Chief Complaint: Animal Bite Stated Complaint: dog bite Time Seen by Provider: 09/15/24 22:44 - History of Present Illness Initial Comments: Quick [id number] female presenting for dog bite to face prior to arrival. Patient states her pet dogs were fighting and she got into in between them. States she has a laceration to the nose and chin, and puncture wounds on right forearm. The dog's rabies vaccinations are up-to-date. Last tetanus greater than 5 years. (Myranda Aguiar) 39-year-old female presenting with chief complaint of dog bite. Patient states that her pet dogs were fighting and she got in between them. Her dogs are up-to-date on vaccinations. Her last tetanus shot was 14 years ago. She has a laceration to the nose and chin. She also has some puncture wounds on the right forearm. Bleeding is well-controlled at this time. She has full range of motion of her extremities. (Eyal Calderon) - Related Data Home Medications Medication Instructions Recorded Confirmed ARIPiprazole [Abilify] 10 mg PO HS 02/01/24 02/24/24 Sertraline [Zoloft] 150 mg PO HS 02/01/24 02/24/24 norethindrone-e.estradioL-iron 1 tab PO DAILY 02/01/24 02/24/24 [Aurovela Fe 1.5 mg-30 Mcg Tab] diazePAM [Valium] 5 mg PO DAILY 02/23/24 02/24/24 traMADol HCl [Ultram] 50 mg PO Q6H PRN 02/23/24 02/24/24 Previous Rx's Medication Instructions Recorded Gabapentin 800 mg PO TID #90 tab 02/27/24 Sennosides/Docusate Sodium [Senna 1 each PO DAILY PRN #20 tablet 02/27/24 Plus 8.6-50 mg Tablet] Sulfamethox-Tmp 800-160Mg [Bactrim 1 tab PO Q12HR #10 tab 02/27/24 DS 800-160 mg] oxyCODONE HCL [OxyIR] 5 mg PO Q4-6H PRN #28 tab 02/27/24 predniSONE 10 mg PO BID #10 tab 02/27/24 traMADol HCl [Ultram] 50 mg PO Q4-6H PRN #40 tab 02/27/24 Cephalexin [Keflex] 500 mg PO QID #40 cap 05/31/24 Sulfamethox-Tmp 800-160Mg [Bactrim 1 tab PO Q12HR 7 Days #14 tab 09/16/24 DS 800-160 mg] metroNIDAZOLE [Flagyl] 500 mg PO TID 7 Days #21 tab 09/16/24 Allergies Allergy/AdvReac Type Severity Reaction Status Date / Time adhesive Allergy Rash/Hives Verified 09/15/24 22:30 ciprofloxacin [From Cipro] Allergy Rash/Hives Verified 09/15/24 22:30 ciprofloxacin HCl Allergy Rash/Hives Verified 09/15/24 22:30 [From Cipro] egg Allergy Unknown Verified 09/15/24 22:30 ibuprofen [From Motrin] Allergy Rash/Hives Verified 09/15/24 22:30 ketorolac tromethamine Allergy Rash/Hives Verified 09/15/24 22:30 [From Toradol] morphine Allergy Rash/Hives Verified 09/15/24 22:30 peanut Allergy Unknown Verified 09/15/24 22:30 Penicillins Allergy Rash/Hives Verified 09/15/24 22:30 Review of Systems ROS Other: All systems not noted in ROS Statement are negative. <Myranda Aguiar - Last Filed: 09/15/24 22:44> ROS Other: All systems not noted in ROS Statement are negative. <Eyal Calderon - Last Filed: 09/16/24 02:00> ROS Statement: Those systems with pertinent positive or pertinent negative responses have been documented in the HPI. Past Medical History Past Medical History: Asthma, Fibromyalgia, GERD/Reflux, Osteoarthritis (OA), Sleep Apnea/CPAP/BIPAP Additional Past Medical History / Comment(s): Migraines, kidney stones, back and neck pain, HAROON CTS, PCOS, varicose veins, hypersomnia, no cpap used, hx ulcer, gout, HERNIATED DISCS History of Any Multi-Drug Resistant Organisms: ESBL Date of last positivie culture/infection: 10/06/23 MDRO Source:: Urine Past Surgical History: Appendectomy, Back Surgery, Bariatric Surgery, Cholecystectomy Additional Past Surgical History / Comment(s): Cyst removed left ovary w/reconstruction, Sinus surgery, Rt ovarian cyst removed, oral surgery, Lithotr ipsy, ESWL -unsuccessful treatment left ureteral calculus, cystoscopy w/double J catheter placement, Sleeve Gastrectomy 07-19-22 Past Anesthesia/Blood Transfusion Reactions: Previous Problems w/ Anesthesia Additional Past Anesthesia/Blood Transfusion Reaction / Comment(s): bronchospasm with surgery at [facility] 04/2017, no problems after that Past Psychological History: Anxiety, Depression Smoking Status: Current every day smoker Past Alcohol Use History: None Reported Past Drug Use History: Marijuana - Past Family History Mother Family Medical History: Cancer, Coronary Artery Disease (CAD) <Myranda Aguiar - Last Filed: 09/15/24 22:44> General Exam Limitations: no limitations <Myranda Aguiar - Last Filed: 09/15/24 22:44> General appearance: alert, in no apparent distress Head exam: Present: normocephalic Eye exam: Present: normal appearance, EOMI. Absent: periorbital swelling Neck exam: Present: normal inspection. Absent: meningismus Respiratory exam: Absent: respiratory distress Cardiovascular Exam: Present: regular rate Neurological exam: Present: alert, oriented X3 Psychiatric exam: Present: normal affect, normal mood Expanded Type of lesion: Present: laceration (5 cm laceration to the nose and 2 cm laceration to the chin) <Eyal Calderon - Last Filed: 09/16/24 02:00> - General Exam Comments Initial Comments: Visual Physical Exam Vital signs reviewed General: Well-appearing, nontoxic, no acute distress. Head: Normocephalic, atraumatic Eyes: PERRLA, EOMI ENT: Airway patent Chest: Nonlabored breathing Skin: Laceration present on nose, laceration present on chin Neuro: Alert and oriented 3 Musculoskeletal: No gross abnormalities (Myranda Aguiar) Course Vital Signs 09/15/24 09/16/24 22:30 00:52 Temperature 98.4 F 98.0 F Pulse Rate 72 69 Respiratory 18 18 Rate Blood Pressure 174/101 134/88 O2 Sat by Pulse 98 98 Oximetry Procedures - Laceration Laceration #1 Consent Obtained: verbal consent Indication: laceration Site: face (Nose) Size (cm): 5 Description: flap Depth: simple, single layer Anesthetic Used: lidocaine 1%, without epi Anesthesia Technique: local infiltration Type of Sutures: nylon Size of Sutures: 6-0 Number of Sutures: 7 Technique: simple, interrupted Patient Tolerated Procedure: well Laceration #2 Consent Obtained: verbal consent Indication: laceration Site: face (Chin) Size (cm): 2 Description: linear Depth: simple, single layer Anesthetic Used: lidocaine 1%, without epi Anesthesia Technique: local infiltration Type of Sutures: nylon Size of Sutures: 6-0 Number of Sutures: 2 Technique: simple, interrupted Patient Tolerated Procedure: well <Eyal Calderon - Last Filed: 09/16/24 02:00> Medical Decision Making <Myranda Aguiar - Last Filed: 09/15/24 22:44> <Eyal Calderon - Last Filed: 09/16/24 02:00> - Medical Decision Making I completed the quick note portion of this chart signed to Myranda Aguiar PA-C (Myranda Aguiar) Was pt. sent in by a medical professional or institution ([facility], PROJECT DIRECTOR, urgent care, hospital, or [facility]...) When possible be specific @ -No Did you speak to anyone other than the patient for history (EMS, parent, family, police, friend...)? What history was obtained from this source @ -No Did you review nursing and triage notes (agree or disagree)? Why? @ -I reviewed and agree with nursing and triage notes Were old charts reviewed (outside hosp., previous admission, EMS record, old EKG, old radiological studies, urgent care reports/EKG's, [facility] records)? Report findings @ -No old charts were reviewed Differential Diagnosis (chest pain, altered mental status, abdominal pain women, abdominal pain men, vaginal bleeding, weakness, fever, dyspnea, syncope, headache, dizziness, GI bleed, back pain, seizure, CVA, palpatations, mental health, musculoskeletal)? @ -Differential includes uncomplicated dog bite, cartilage deformity, tendon injury, this is not an all-inclusive list EKG interpreted by me (3pts min.). @ -As above X-rays interpreted by me (1pt min.). @ -None done CT interpreted by me (1pt min.). @ -None done U/S interpreted by me (1pt. min.). @ -None done What testing was considered but not performed or refused? (CT, X-rays, U/S, labs)? Why? @ -None What meds were considered but not given or refused? Why? @ -None Did you discuss the management of the patient with other professionals (professionals i.e. , PA, PROJECT DIRECTOR, lab, RT, psych nurse, social security specialist, veterans adviser, teacher, special police officer, briefcase sewer)? Give summary @ -No Was smoking cessation discussed for >3mins.? @ -No Was critical care preformed (if so, how long)? @ -No Were there social determinants of health that impacted care today? How? (Homelessness, low income, unemployed, alcoholism, drug addiction, transportation, low edu. Level, literacy, decrease access to med. care, assisted, rehab)? @ -No Was there de-escalation of care discussed even if they declined (Discuss DNR or withdrawal of care, Hospice)? DNR status @ -No What co-morbidities impacted this encounter? (DM, HTN, Smoking, COPD, CAD, Cancer, CVA, ARF, Chemo, Hep., AIDS, mental health diagnosis, sleep apnea, morbid obesity)? @ -None Was patient admitted / discharged? Hospital course, mention meds given and route, prescriptions, significant lab abnormalities, going to OR and other pertinent info. @ -39-year-old female presenting with chief complaint of dog bite. These were her pet dogs who are up-to-date on their vaccinations. Her tetanus is updated today. Lacerations to the face are cleansed and repaired. Patient is started on metronidazole and Bactrim given her penicillin allergy. She is educated on wound care and signs of infection. Discharged. Follow-up with PCP. Report back to ER with any new or worsening symptoms. Discussed return parameters and answered all questions. Patient conveyed verbal understanding and agreed to the plan. I discussed this case in detail with my attending Dr. Giang Undiagnosed new problem with uncertain prognosis? @ -No Drug Therapy requiring intensive monitoring for toxicity (Heparin, Nitro, Insulin, Cardizem)? @ -No Were any procedures done? @ -Laceration repair Diagnosis/symptom? @ -Dog bite Acute, or Chronic, or Acute on Chronic? @ -Acute Uncomplicated (without systemic symptoms) or Complicated (systemic symptoms)? @ -Uncomplicated Side effects of treatment? @ -No Exacerbation, Progression, or Severe Exacerbation? @ -No Poses a threat to life or bodily function? How? (Chest pain, [place], [place], pneumonia, PE, COPD, DKA, ARF, appy, cholecystitis, CVA, Diverticulitis, Homicidal, Suicidal, threat to staff... and all critical care pts) @ -low likelihood (Eyal Calderon) Disposition <Myranda Aguiar - Last Filed: 09/15/24 22:44> Is patient prescribed a controlled substance at d/c from ED?: No Time of Disposition: 00:26 <Eyal Calderon - Last Filed: 09/16/24 02:00> Clinical Impression: Dog bite Disposition: HOME SELF-CARE Condition: Good Instructions (If sedation given, give patient instructions): Animal Bite (ED) Additional Instructions: Follow-up with PCP. Report back to ER with any new or worsening symptoms. Keep the wound clean dry and covered. Wash regularly with soap and water. Avoid fully submerging the wound in water for prolonged periods of time. Monitor for signs of infection, including but not limited to redness, swelling, warmth, tenderness, discharge, fever. Sutures may be removed in 5 days. Take medication as prescribed. Prescriptions: Sulfamethox-Tmp 800-160Mg [Bactrim DS 800-160 mg] 1 tab PO Q12HR 7 Days #14 tab metroNIDAZOLE [Flagyl] 500 mg PO TID 7 Days #21 tab Referrals: Pedro Joe DO [Primary Care Provider] - 1-2 days
[2024-09-15] MEDS: LIDOCAINE 1% INJ 10MG/ML (20 ML MDV) SQ ONE (23:43)
[2024-09-15] MEDS: DIPH,PERTUS(ACELL)TETVAC-LF 0.5 ML VIAL IM ONE (23:44)
[2024-09-16 00:54] VITALS: BP 134/88; PULSE 69; TEMP 98
== END 2024-09-16 00:52 | disposition home or self-care (01) ==
LOC: EC 22:14
DX: S01.21XA Laceration without foreign body of nose, initial encounter (principal); S01.81XA Laceration without foreign body of other part of head, initial encounter; F17.200 Nicotine dependence, unspecified, uncomplicated; Z88.0 Allergy status to penicillin; Z88.6 Allergy status to analgesic agent; Z88.1 Allergy status to other antibiotic agents; Z91.012 Allergy to eggs; Z88.8 Allergy status to other drugs, medicaments and biological substances; Z91.010 Allergy to peanuts; Z23 Encounter for immunization; W54.0XXA Bitten by dog, initial encounter
CPT/HCPCS: 90715; 99283; 12014; 90471; J2003